=== PATIENT | male | born 1980 | race Caucasian/White ===

== ENCOUNTER → 2020-05-08 08:23 | Outpatient (REF) | payer OTHER, SELFPAY ==
--- NOTE | 2020-05-08 08:25 | CA_ITS ---
Transthoracic Echocardiogram Patient (Last, First, Middle): Kendell Shepherd, Gender: Male Date of : 1980 Age: 39 Procedure Date: 05/08/2020 Procedure Type: Transthoracic Echocardiogram Location: OP Height: 187.96 cm Weight: 95.26 kg BSA: 2.22 m2 Heart Rate: bpm BP: 142 / 88 mmHg Math And Science Instructor: Referring MD: Elfego Morales MD Symptoms[place] [facility] [place] Conclusions: - Normal left ventricular size and systolic function. - Normal right ventricular cavity size and systolic function. - Tricuspid regurgitation envelope is inadequate for calculation of right ventricular systolic pressure. Normal right atrial pressure. - All visible segments of the aorta are normal in size. - The inferior vena cava is normal in size and collapses greater than 50% with inspiration. Findings Left Ventricle Normal left ventricular size and systolic function. There is mildly increased left ventricular wall thickness. The visually estimated ejection fraction is between 55-60%. There is no evidence of regional wall motion abnormalities. Diastolic function is normal for age. Right Ventricle Normal right ventricular cavity size and systolic function. Atria Both atria are normal in size. There is no evidence of interatrial shunt by color Doppler. Aortic Valve Normal aortic valve structure and function. There is no aortic valve stenosis. There is no aortic valve regurgitation. Mitral Valve Normal mitral valve structure and function. There is no mitral valve regurgitation. There is no mitral valve stenosis. Pulmonic Valve Normal pulmonic valve structure and function. There is no pulmonic valve regurgitation. Tricuspid Valve Normal tricuspid valve structure and function. There is trace tricuspid valve regurgitation. Tricuspid regurgitation envelope is inadequate for calculation of right ventricular systolic pressure. Normal right atrial pressure. Great Vessels All visible segments of the aorta are normal in size. The visualized portions of the pulmonary artery and branches are normal. Venous The inferior vena cava is normal in size and collapses greater than 50% with inspiration. Pericardium/Pleural There is no evidence of pericardial effusion. Prior Study Comparison No significant change compared to prior study dated: 01/19/2020. Measurements 2D Linear Measurements RVIDd: 3.33 RVIDd Index: 1.50 IVSd: 1.13 0.6-0.9/0.6-1.0 cm LVIDd: 5.39 3.9-5.3/4.2-5.9 cm LVIDd Index: 2.43 2.4-3.2/2.2-3.1 cm/m2 LVIDs: 3.41 2.0-3.6 cm LVPWd: 1.00 0.7-1.1 cm Ao Root: 3.50 2.1-3.5 cm LA Diam: 3.30 2.7-3.8/3.0-4.0 cm LAIDs Index: 1.49 1.5-2.3 cm/m2 LV Mass: 279.41 67-162/88-224 g LV Mass Index: 125.86 43-95/49-115 g/m2 LVOT Diam: 2.30 3.0+(-)1.3 cm 2D Systolic Function EF 4C: 56.50 >55% EF 2C: 53.50 >55% EF BiP: 53.90 >55% Mitral Valve MV Pk E: 0.45 MV PK A: 0.51 MV Decel Time: 208.00 E/A: 0.90 E'Lateral: 10.60 E'Medial: 5.33 E/E' Med: 8.40 E/E' Lat: 4.20 PHT: 61.00 MVA PHT: 3.61 Decel [place]: 2.15 Aortic Valve AoV Pk [place]ison: 1.16 AoV Mn Addison: 0.86 AoV VTI: 0.21 AoV Pk Grad: 5.00 Aov Mn Grad: 3.00 VIKKI Cont.VTI: 4.07 LVOT LVOT Pk Addison: 1.13 LVOT Mn Addison: 0.75 LVOT VTI: 0.21 LVOT Pk Grad: 5.00 LVOT Mn Grad: 3.00 LVOT Diam: 2.30 LVOT Area: 4.15 Diastolic Function MV Pk E: 0.45 MV Pk A: 0.51 E/A: 0.90 E'Medial: 5.33 E/E' Med: 8.40 E' Laterial: 10.60 E/E' Lat: 4.20 Tricuspid Valve RA Press: 8.00 Great Vessels Aorta Ao Root-2D: 3.50 2.0-3.7 cm Ao Asc: 3.30 2.1-3.4 cm Ao Arch: 3.00 Updated in Other Vendor System with Status of Final Obie Cote MD electronically signed on 05/09/2020 1:12:20 PM with status of Final
== END ==
LOC: HO.CARD 08:23
PROVIDERS: PCP Internal Medicine; Visit Provider Hospitalist
DX: I27.82 Chronic pulmonary embolism (principal)
CPT/HCPCS: 93306

== ENCOUNTER 2020-05-18 09:44 | Outpatient (REF) | payer OTHER, SELFPAY ==
[2020-05-18 11:56] LABS: MANUAL DIFF FLAG NO
[2020-05-18 12:06] LABS: Basophils Absolute Auto 0.1 X10*3/uL (0.0-0.2); Basophils Percent Auto 0.9 % (0-2); Eosinophils Absolute Auto 0.3 X10*3/uL (0.0-0.4); Hematocrit 47.4 % (42-52); Hemoglobin 16.4 g/dl (14.0-18.0); Imm Gran Abs Auto 0.04 X10*3/uL (0.00-0.03); Imm Gran Pct Auto 0.6 % (0.0-0.4); Lymphocytes Absolute Auto 2.5 X10*3/uL (1.2-4.9); Lymphocytes Percent Auto 35.6 % (20-40); Mean Corpuscular HGB Conc 34.6 g/dl (31.0-36.0); Mean Corpuscular Hemoglobin 30.4 pg (27.0-33.0); Mean Corpuscular Volume 87.9 fL (80-98); Mean Platelet Volume 10.3 fL (9.4-12.4); Monocytes Absolute Auto 0.8 X10*3/uL (0.1-1.2); Neutrophils Absolute Auto 3.3 X10*3/uL (2.0-8.3); Neutrophils Percent Auto 47.9 % (45-73); Platelet Count 272 X10*3/uL (160-400); Red Blood Count 5.39 X10*6/uL (4.60-5.80); Red Cell Distribution Width 11.7 % (11.0-16.0); White Blood Count 6.9 X10*3/uL (4.8-10.8)
[2020-05-18 12:11] LABS: D Dimer < 200 NG/ML
[2020-05-18 12:28] LABS: Troponin-I High Sensitivity < 3.5 ng/L (<3.5-35.0)
[2020-05-18 13:06] LABS: Erythrocyte Sedimentation Rate 2 MM/HR (0-15)
== END 2020-05-18 09:45 | disposition home or self-care (01) ==
LOC: HO.LAB 09:44
PROVIDERS: Visit Provider Hospitalist
DX: I26.09 Other pulmonary embolism with acute cor pulmonale (principal); R06.00 Dyspnea, unspecified; R91.8 Other nonspecific abnormal finding of lung field; I74.9 Embolism and thrombosis of unspecified artery
CPT/HCPCS: 36415; 84484; 85025; 85379; 85652; 99212

== ENCOUNTER 2020-05-30 08:20 | Outpatient (REF) | payer OTHER, SELFPAY ==
--- NOTE | 2020-05-30 08:23 | CT_ITS ---
EXAMINATION: CT ANGIOGRAM OF THE CHEST WITH AND WITHOUT CONTRAST (CT PULMONARY ANGIOGRAM FOR PE) CLINICAL INFORMATION: Follow-up from 4 months ago. History of PE COMPARISON: 01/18/2020 TECHNIQUE: Prior to contrast administration, noncontrast localization images were obtained. Subsequently, multidetector volumetric imaging was performed from the thoracic inlet to below the diaphragms following the administration of 65 mL Omnipaque 350 intravenous contrast. No contrast reaction reported Sagittal, coronal, and MIP oblique sagittal reformatted images were obtained on the CT workstation, uploaded to PACS, and reviewed. This CT examination was performed using dose optimization techniques as appropriate, variously including the following: *Automated exposure control *Adjustment of mA and/or kV according to patient size (this includes techniques or standardized protocols for targeted exams where dose is matched to indication/reason for exam; i.e. extremities or head) *Use of iterative reconstruction technique Total exam dose-length product 153 mGy-cm FINDINGS: QUALITY OF STUDY/CONTRAST BOLUS: Satisfactory. 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 This abnormality was present on the prior study, with a nearly identical configuration, somewhat smaller in size. The majority of the previously seen left lower lobe pulmonary artery filling defects have resolved but there is mild residua, for example in the left lower lobe image 258/605 THORACIC AORTA: No aneurysm or dissection. LUNG: There is mild residual atelectasis vs. scar in the lingula. This was present and is smaller. In retrospect it may have represented a small pulmonary infarct. No new focal consolidation or mass. PLEURA: No pleural effusion or pneumothorax. MEDIASTINUM: Normal heart size. No pericardial effusion. No hilar or mediastinal lymphadenopathy. No evidence of septal bowing or right heart strain. CHEST WALL/AXILLA: No axillary or internal mammary lymphadenopathy. OSSEOUS STRUCTURES: No acute or suspicious osseous abnormality. UPPER ABDOMEN: Liver is diffusely enlarged and hypoattenuating consistent with diffuse hepatic steatosis. There is focal fatty sparing adjacent to gallbladder fossa. No reflux of contrast into the hepatic veins to suggest elevated right heart pressures. 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 The largest abnormality is seen at the bifurcation of the right pulmonary artery extending into the right interlobar pulmonary artery, slightly decreased in size from the prior study. The report will be called to the ordering clinician by a [facility] Physician Tool Clerk.
[2020-05-30] MEDS: iohexoL 350 MG/ML 100 ML INFUS..BTL IV (09:16)
== END 2020-05-30 08:21 | disposition home or self-care (01) ==
LOC: HO.CT 08:20
PROVIDERS: Visit Provider Hospitalist
DX: R06.00 Dyspnea, unspecified (principal); I26.09 Other pulmonary embolism with acute cor pulmonale; R91.8 Other nonspecific abnormal finding of lung field
CPT/HCPCS: 71275; Q9967

== ENCOUNTER 2020-07-07 09:01 | Outpatient (REF) | payer OTHER, SELFPAY ==
--- NOTE | 2020-07-07 16:20 | PFT_ITS ---
FLOWS: FEV1 of 108% of predicted at 5.13 L. FVC 105% of predicted at 6.35 L. FEV1 to FVC ratio of 0.81. No bronchodilator response. LUNG VOLUMES: Total lung capacity 113% of predicted at 8.75 L. Residual volume 111% of predicted at 2.29 L. Slow vital capacity 113% of predicted at 6.46 L. Expiratory reserve volume 54% of predicted at 1.03 L. Diffusion capacity is mildly decreased. IMPRESSION: No obstructive or restrictive ventilatory defect. No bronchodilator response. Decreased expiratory reserve volume suggests extrathoracic restriction likely secondary to abdominal obesity. Decreased diffusion capacity suggests emphysema. MD TIGIST Olivares/MODL / [id number]
== END 2020-07-07 09:02 | disposition home or self-care (01) ==
LOC: HO.RESP 09:01
PROVIDERS: Visit Provider Hospitalist
DX: I74.9 Embolism and thrombosis of unspecified artery (principal); I26.99 Other pulmonary embolism without acute cor pulmonale; R06.00 Dyspnea, unspecified
CPT/HCPCS: 94060; 94727; 94729; 99212

== ENCOUNTER 2020-08-08 09:01 | Outpatient (REF) | payer OTHER, SELFPAY ==
--- NOTE | 2020-08-08 09:10 | XR_ITS ---
EXAMINATION: XR CHEST CLINICAL INFORMATION: History of pulmonary embolism. COMPARISON: None TECHNIQUE: 2 views of the chest were obtained. FINDINGS: No significant abnormality is noted involving the heart, lungs, mediastinum, bony thorax or soft tissues. XR/XR chest 2V IMPRESSION: Unremarkable chest examination.
== END 2020-08-08 09:02 | disposition home or self-care (01) ==
LOC: HO.XRAY 09:01
PROVIDERS: Visit Provider Hospitalist
DX: I74.9 Embolism and thrombosis of unspecified artery (principal); R91.8 Other nonspecific abnormal finding of lung field; R06.00 Dyspnea, unspecified
CPT/HCPCS: 71046

== ENCOUNTER → 2020-08-09 08:34 | Outpatient (REF) | payer OTHER, SELFPAY ==
--- NOTE | 2020-08-09 08:34 | NM_ITS ---
EXAMINATION: PULMONARY PERFUSION STUDY CLINICAL INFORMATION: Pulmonary embolism. COMPARISON: No previous lung scan is available for comparison. Radiographs of the chest dated 08/08/2019 are available for comparison. CTA of the chest dated 05/30/2020 and prior CTA of the chest dated 01/18/2020 are available for comparison. TECHNIQUE: Following the intravenous administration of 4.0 mCi Tc-99m MAA an 8-view perfusion study was performed using a dual detector gamma scintillation camera. No ventilation images were obtained. FINDINGS: Perfusion images: Multiple segmental and subsegmental perfusion defects are present bilaterally, most prominently involving the superior segment of the right lower lobe, the lateral segment of the right middle lobe and the superior lingular segment in the anterior segment of the left lower lobe. Additional scattered subsegmental perfusion defects are present bilaterally. The radiographs of the chest dated 08/08/2020 show clear lung simons with no abnormalities matching the prominent perfusion abnormalities. CTAs of the chest dated 05/30/2020 and 01/18/2020 both showed multiple pulmonary emboli, the most recent 05/30/2020 study suggesting chronic residual from prior emboli. NM/NM pul perfusion IMPRESSION: High probability of pulmonary embolism of undetermined age. In this patient with prior CTA studies demonstrating pulmonary emboli, the abnormalities on this scan may be due to acute pulmonary embolism or incomplete resolution of prior pulmonary embolism. In the absence of a prior lung scan it is not possible to determine with certainty whether any of these defects on the current study are new. This Critical Result was discussed by Dr. Marinelli with Dr. Morales at 9:20 AM on 08/09/2020 and it was ascertained that the content and urgency of the report was understood at the time of direct communication.
== END ==
LOC: HO.NUCMED 08:34
PROVIDERS: Visit Provider Hospitalist
DX: I74.9 Embolism and thrombosis of unspecified artery (principal)
CPT/HCPCS: 78580; A9540

== ENCOUNTER → 2020-09-05 15:11 | Outpatient (BNVA) | payer OTHER, SELFPAY | PROVIDERS: PCP Internal Medicine; Visit Provider Hospitalist | DX: R91.8 Other nonspecific abnormal finding of lung field (principal); I74.9 Embolism and thrombosis of unspecified artery; I26.09 Other pulmonary embolism with acute cor pulmonale; R06.00 Dyspnea, unspecified | CPT/HCPCS: 99212 ==

== ENCOUNTER → 2020-10-10 14:24 | Outpatient (BNVA) | payer OTHER, SELFPAY | PROVIDERS: PCP Internal Medicine; Visit Provider Hospitalist | DX: R91.8 Other nonspecific abnormal finding of lung field (principal); R06.00 Dyspnea, unspecified; I74.9 Embolism and thrombosis of unspecified artery; I26.09 Other pulmonary embolism with acute cor pulmonale; Z79.899 Other long term (current) drug therapy | CPT/HCPCS: 99212 ==

== ENCOUNTER 2020-10-30 13:35 | Emergency (ER) | payer OTHER, SELFPAY | END 2020-10-30 16:33 | disposition left against medical advice (07) | PROVIDERS: Emergency Provider Emergency Medicine; PCP Internal Medicine | DX: R11.0 Nausea (principal); F41.0 Panic disorder [episodic paroxysmal anxiety] ==

== ENCOUNTER → 2020-12-11 14:21 | Outpatient (BNVA) | payer OTHER, SELFPAY | PROVIDERS: PCP Internal Medicine; Visit Provider Hospitalist | DX: R91.8 Other nonspecific abnormal finding of lung field (principal); I74.9 Embolism and thrombosis of unspecified artery; I26.09 Other pulmonary embolism with acute cor pulmonale; R06.00 Dyspnea, unspecified; I27.20 Pulmonary hypertension, unspecified | CPT/HCPCS: 99212 ==

== ENCOUNTER → 2021-04-16 12:59 | Outpatient (BNVA) | payer OTHER, SELFPAY | PROVIDERS: PCP Internal Medicine; Visit Provider Hospitalist | DX: R91.8 Other nonspecific abnormal finding of lung field (principal); I71.9 Aortic aneurysm of unspecified site, without rupture; I26.09 Other pulmonary embolism with acute cor pulmonale; I27.20 Pulmonary hypertension, unspecified; R06.00 Dyspnea, unspecified | CPT/HCPCS: 99212 ==

== ENCOUNTER 2021-06-26 10:17 | Outpatient (REF) | payer OTHER, SELFPAY ==
[2021-06-26 10:40] LABS: MANUAL DIFF FLAG NO
[2021-06-26 10:51] LABS: Basophils Percent Auto 0.5 % (0-2); Eosinophils Absolute Auto 0.3 X10*3/uL (0.0-0.4); Eosinophils Percent Auto 3.6 % (0-4); Hematocrit 43.7 % (42.0-52.0); Hemoglobin 14.9 g/dl (14.0-18.0); Imm Gran Abs Auto 0.15 X10*3/uL (0.00-0.03); Imm Gran Pct Auto 1.8 % (0.0-0.4); Lymphocytes Absolute Auto 2.2 X10*3/uL (1.2-4.9); Lymphocytes Percent Auto 26.5 % (20-40); Mean Corpuscular HGB Conc 34.1 g/dl (31.0-36.0); Mean Corpuscular Hemoglobin 30.3 pg (27.0-33.0); Mean Platelet Volume 9.6 fL (9.4-12.4); Monocytes Absolute Auto 0.8 X10*3/uL (0.1-1.2); Neutrophils Absolute Auto 4.9 x10*3/uL (2.0-8.3); Neutrophils Percent Auto 58.6 % (45-73); Platelet Count 334 X10*3/uL (160-400); Red Blood Count 4.91 X10*6/uL (4.60-5.80); Red Cell Distribution Width 11.6 % (11.0-16.0); White Blood Count 8.3 X10*3/uL (4.8-10.8)
[2021-06-26 11:03] LABS: Prothrombin Time 75.5 SEC (9.9-13.0)
[2021-06-26 11:31] LABS: Anion Gap 14 (12-20); Blood Urea Nitrogen 29 mg/dL (9-16); Calcium 9.6 mg/dL (8.4-10.2); Carbon Dioxide 24 mmol/L (22-29); Chloride 106 mmol/L (96-108); Estimated Glomerular Filt Rate > 60; Glucose Random 97 mg/dL (60-115); Potassium 4.7 mmol/L (3.3-5.1); Sodium 139 mmol/L (135-145)
[2021-06-26 11:53] LABS: INTERNATIONAL NORM RATIO 6.4 (0.9-1.1)
== END 2021-06-26 10:18 | disposition home or self-care (01) ==
LOC: HO.LAB 10:17
PROVIDERS: PCP Internal Medicine; Visit Provider Hospitalist
DX: I74.9 Embolism and thrombosis of unspecified artery (principal)
CPT/HCPCS: 36415; 80048; 85025; 85610

== ENCOUNTER 2021-06-27 09:50 | Outpatient (REF) | payer OTHER, SELFPAY ==
[2021-06-27 10:41] LABS: INTERNATIONAL NORM RATIO 2.7 (0.9-1.1); Prothrombin Time 31.4 SEC (9.9-13.0)
== END 2021-06-27 09:51 | disposition home or self-care (01) ==
LOC: HO.LAB 09:50
PROVIDERS: Visit Provider Hospitalist
DX: I74.9 Embolism and thrombosis of unspecified artery (principal); Z79.01 Long term (current) use of anticoagulants
CPT/HCPCS: 36415; 85610

== ENCOUNTER → 2021-06-28 12:59 | Outpatient (BNVA) | payer OTHER, SELFPAY | PROVIDERS: PCP Hospitalist; Visit Provider Internal Medicine | DX: I74.9 Embolism and thrombosis of unspecified artery (principal); Z51.81 Encounter for therapeutic drug level monitoring; Z79.01 Long term (current) use of anticoagulants | CPT/HCPCS: 85610; 99202 ==

== ENCOUNTER → 2021-06-29 09:47 | Outpatient (BNVA) | payer OTHER, SELFPAY | PROVIDERS: PCP Hospitalist; Visit Provider Internal Medicine | DX: I74.9 Embolism and thrombosis of unspecified artery (principal); Z51.81 Encounter for therapeutic drug level monitoring; Z79.01 Long term (current) use of anticoagulants | CPT/HCPCS: 85610; 99211 ==

== ENCOUNTER → 2021-07-02 09:20 | Outpatient (BNVA) | payer OTHER, SELFPAY | PROVIDERS: PCP Hospitalist; Visit Provider Internal Medicine | DX: I74.9 Embolism and thrombosis of unspecified artery (principal) | CPT/HCPCS: 85610; 99211 ==

== ENCOUNTER → 2021-07-04 09:38 | Outpatient (REF) | payer OTHER, SELFPAY ==
--- NOTE | 2021-07-04 10:18 | ECG_ITS ---
Test Reason : pulmonary embolism Blood Pressure : / mmHG Vent. Rate : 102 BPM Atrial Rate : 102 BPM P-R Int : 138 ms QRS Dur : 090 ms QT Int : 346 ms P-R-T Axes : 047 062 009 degrees QTc Int : 450 ms Sinus tachycardia Otherwise normal ECG When compared with ECG of 18-JAN-2020 20:43, Nonspecific T wave abnormality, worse in Inferior leads Referred By: Elfego Morales Electronically Signed By:ISABELL APPIAH MD
== END ==
LOC: HO.CARD 09:38
PROVIDERS: Absent Provider Hospitalist; PCP Hospitalist; Visit Provider Internal Medicine
DX: I26.09 Other pulmonary embolism with acute cor pulmonale (principal); R00.0 Tachycardia, unspecified; Z79.01 Long term (current) use of anticoagulants
CPT/HCPCS: 85610; 93005; 99211

== ENCOUNTER → 2021-07-06 09:26 | Outpatient (BNVA) | payer OTHER, SELFPAY | PROVIDERS: PCP Hospitalist; Visit Provider Internal Medicine | DX: I74.9 Embolism and thrombosis of unspecified artery (principal); Z51.81 Encounter for therapeutic drug level monitoring; Z79.01 Long term (current) use of anticoagulants | CPT/HCPCS: 85610; 99211 ==

== ENCOUNTER → 2021-07-09 09:39 | Outpatient (BNVA) | payer OTHER, SELFPAY | PROVIDERS: PCP Hospitalist; Visit Provider Internal Medicine | DX: I74.9 Embolism and thrombosis of unspecified artery (principal); Z51.81 Encounter for therapeutic drug level monitoring; Z79.01 Long term (current) use of anticoagulants | CPT/HCPCS: 85610; 99211 ==

== ENCOUNTER → 2021-07-12 09:35 | Outpatient (BNVA) | payer OTHER, SELFPAY | PROVIDERS: PCP Hospitalist; Visit Provider Internal Medicine | DX: I74.9 Embolism and thrombosis of unspecified artery (principal); Z51.81 Encounter for therapeutic drug level monitoring; Z79.01 Long term (current) use of anticoagulants | CPT/HCPCS: 85610; 99211 ==

== ENCOUNTER → 2021-07-16 09:35 | Outpatient (BNVA) | payer OTHER, SELFPAY | PROVIDERS: PCP Hospitalist; Visit Provider Internal Medicine | DX: I74.9 Embolism and thrombosis of unspecified artery (principal); Z51.81 Encounter for therapeutic drug level monitoring; Z79.01 Long term (current) use of anticoagulants | CPT/HCPCS: 85610; 99211 ==

== ENCOUNTER → 2021-07-19 13:43 | Outpatient (BNVA) | payer OTHER, SELFPAY | PROVIDERS: PCP Hospitalist; Visit Provider Internal Medicine | DX: I74.9 Embolism and thrombosis of unspecified artery (principal); Z51.81 Encounter for therapeutic drug level monitoring; Z79.01 Long term (current) use of anticoagulants | CPT/HCPCS: 85610; 99211 ==

== ENCOUNTER → 2021-07-23 09:31 | Outpatient (BNVA) | payer OTHER, SELFPAY | PROVIDERS: PCP Hospitalist; Visit Provider Internal Medicine | DX: I74.9 Embolism and thrombosis of unspecified artery (principal); Z51.81 Encounter for therapeutic drug level monitoring; Z79.01 Long term (current) use of anticoagulants | CPT/HCPCS: 85610; 99211 ==

== ENCOUNTER → 2021-07-27 09:31 | Outpatient (BNVA) | payer OTHER, SELFPAY | PROVIDERS: PCP Hospitalist; Visit Provider Internal Medicine | DX: I74.9 Embolism and thrombosis of unspecified artery (principal); Z51.81 Encounter for therapeutic drug level monitoring; Z79.01 Long term (current) use of anticoagulants | CPT/HCPCS: 85610; 99211 ==

== ENCOUNTER → 2021-08-01 08:18 | Outpatient (BNVA) | payer OTHER, SELFPAY | PROVIDERS: PCP Hospitalist; Visit Provider Internal Medicine | DX: I74.9 Embolism and thrombosis of unspecified artery (principal); Z51.81 Encounter for therapeutic drug level monitoring; Z79.01 Long term (current) use of anticoagulants | CPT/HCPCS: 85610; 99211 ==

== ENCOUNTER → 2021-08-08 08:19 | Outpatient (BNVA) | payer OTHER, SELFPAY | PROVIDERS: PCP Hospitalist; Visit Provider Internal Medicine | DX: I74.9 Embolism and thrombosis of unspecified artery (principal); Z51.81 Encounter for therapeutic drug level monitoring; Z79.01 Long term (current) use of anticoagulants | CPT/HCPCS: 85610; 99211 ==

== ENCOUNTER → 2021-08-14 12:55 | Outpatient (BNVA) | payer OTHER, SELFPAY | PROVIDERS: Visit Provider Hospitalist | DX: R91.8 Other nonspecific abnormal finding of lung field (principal); I74.9 Embolism and thrombosis of unspecified artery; I26.09 Other pulmonary embolism with acute cor pulmonale; I27.20 Pulmonary hypertension, unspecified; R06.00 Dyspnea, unspecified; R07.9 Chest pain, unspecified | CPT/HCPCS: 94618; 99212 ==

== ENCOUNTER → 2021-08-15 08:22 | Outpatient (BNVA) | payer OTHER, SELFPAY | PROVIDERS: PCP Hospitalist; Visit Provider Internal Medicine | DX: I74.9 Embolism and thrombosis of unspecified artery (principal); Z51.81 Encounter for therapeutic drug level monitoring; Z79.01 Long term (current) use of anticoagulants | CPT/HCPCS: 85610; 99211 ==

== ENCOUNTER → 2021-08-22 08:08 | Outpatient (BNVA) | payer OTHER, SELFPAY | PROVIDERS: PCP Hospitalist; Visit Provider Internal Medicine | DX: I74.9 Embolism and thrombosis of unspecified artery (principal); Z51.81 Encounter for therapeutic drug level monitoring; Z79.01 Long term (current) use of anticoagulants | CPT/HCPCS: 85610; 99211 ==

== ENCOUNTER → 2021-08-29 08:01 | Outpatient (BNVA) | payer OTHER, SELFPAY | PROVIDERS: PCP Hospitalist; Visit Provider Internal Medicine | DX: I74.9 Embolism and thrombosis of unspecified artery (principal); Z51.81 Encounter for therapeutic drug level monitoring; Z79.01 Long term (current) use of anticoagulants | CPT/HCPCS: 85610; 99211 ==

== ENCOUNTER → 2021-09-05 08:03 | Outpatient (BNVA) | payer OTHER, SELFPAY | PROVIDERS: PCP Hospitalist; Visit Provider Internal Medicine | DX: I74.9 Embolism and thrombosis of unspecified artery (principal); Z51.81 Encounter for therapeutic drug level monitoring; Z79.01 Long term (current) use of anticoagulants | CPT/HCPCS: 85610; 99211 ==

== ENCOUNTER → 2021-09-17 16:12 | Outpatient (BNVA) | payer OTHER, SELFPAY | PROVIDERS: PCP Hospitalist; Visit Provider Internal Medicine | DX: I74.9 Embolism and thrombosis of unspecified artery (principal); Z51.81 Encounter for therapeutic drug level monitoring; Z79.01 Long term (current) use of anticoagulants | CPT/HCPCS: 85610; 99211 ==

== ENCOUNTER → 2021-09-26 08:08 | Outpatient (BNVA) | payer OTHER, SELFPAY | PROVIDERS: PCP Hospitalist; Visit Provider Internal Medicine | DX: I74.9 Embolism and thrombosis of unspecified artery (principal); Z51.81 Encounter for therapeutic drug level monitoring; Z79.01 Long term (current) use of anticoagulants | CPT/HCPCS: 85610; 99211 ==

== ENCOUNTER → 2021-10-03 08:07 | Outpatient (BNVA) | payer OTHER, SELFPAY | PROVIDERS: PCP Hospitalist; Visit Provider Internal Medicine | DX: I74.9 Embolism and thrombosis of unspecified artery (principal); Z79.01 Long term (current) use of anticoagulants; Z51.81 Encounter for therapeutic drug level monitoring | CPT/HCPCS: 85610; 99211 ==

== ENCOUNTER → 2021-10-10 08:14 | Outpatient (BNVA) | payer OTHER, SELFPAY | PROVIDERS: PCP Hospitalist; Visit Provider Internal Medicine | DX: I74.9 Embolism and thrombosis of unspecified artery (principal); Z51.81 Encounter for therapeutic drug level monitoring; Z79.01 Long term (current) use of anticoagulants | CPT/HCPCS: 85610; 99211 ==

== ENCOUNTER → 2021-10-17 08:06 | Outpatient (BNVA) | payer OTHER, SELFPAY | PROVIDERS: PCP Hospitalist; Visit Provider Internal Medicine | DX: I74.9 Embolism and thrombosis of unspecified artery (principal); Z51.81 Encounter for therapeutic drug level monitoring; Z79.01 Long term (current) use of anticoagulants | CPT/HCPCS: 85610; 99211 ==

== ENCOUNTER → 2021-10-31 08:24 | Outpatient (BNVA) | payer OTHER, SELFPAY | PROVIDERS: PCP Hospitalist; Visit Provider Internal Medicine | DX: I74.9 Embolism and thrombosis of unspecified artery (principal); Z79.01 Long term (current) use of anticoagulants; Z51.81 Encounter for therapeutic drug level monitoring | CPT/HCPCS: 85610; 99211 ==

== ENCOUNTER → 2021-11-14 08:03 | Outpatient (BNVA) | payer OTHER, SELFPAY | PROVIDERS: PCP Hospitalist; Visit Provider Internal Medicine | DX: I74.9 Embolism and thrombosis of unspecified artery (principal); Z79.01 Long term (current) use of anticoagulants; Z51.81 Encounter for therapeutic drug level monitoring | CPT/HCPCS: 85610; 99211 ==

== ENCOUNTER → 2021-11-21 08:04 | Outpatient (BNVA) | payer OTHER, SELFPAY | PROVIDERS: PCP Hospitalist; Visit Provider Internal Medicine | DX: I74.9 Embolism and thrombosis of unspecified artery (principal); Z79.01 Long term (current) use of anticoagulants; Z51.81 Encounter for therapeutic drug level monitoring | CPT/HCPCS: 85610; 99211 ==

== ENCOUNTER → 2021-11-28 07:59 | Outpatient (BNVA) | payer OTHER, SELFPAY | PROVIDERS: PCP Hospitalist; Visit Provider Internal Medicine | DX: I74.9 Embolism and thrombosis of unspecified artery (principal); Z79.01 Long term (current) use of anticoagulants; Z51.81 Encounter for therapeutic drug level monitoring | CPT/HCPCS: 85610; 99211 ==

== ENCOUNTER → 2021-12-07 08:54 | Outpatient (BNVA) | payer OTHER, SELFPAY | PROVIDERS: PCP Hospitalist; Visit Provider Internal Medicine | DX: I74.9 Embolism and thrombosis of unspecified artery (principal); Z79.01 Long term (current) use of anticoagulants; Z51.81 Encounter for therapeutic drug level monitoring | CPT/HCPCS: 85610; 99211 ==

== ENCOUNTER → 2021-12-18 08:04 | Outpatient (BNVA) | payer OTHER, SELFPAY | PROVIDERS: PCP Hospitalist; Visit Provider Internal Medicine | DX: I74.9 Embolism and thrombosis of unspecified artery (principal); Z79.01 Long term (current) use of anticoagulants; Z51.81 Encounter for therapeutic drug level monitoring | CPT/HCPCS: 85610; 99211 ==

== ENCOUNTER → 2022-01-01 07:59 | Outpatient (BNVA) | payer OTHER, SELFPAY | PROVIDERS: PCP Hospitalist; Visit Provider Internal Medicine | DX: I74.9 Embolism and thrombosis of unspecified artery (principal); Z79.01 Long term (current) use of anticoagulants; Z51.81 Encounter for therapeutic drug level monitoring | CPT/HCPCS: 85610; 99211 ==

== ENCOUNTER → 2022-01-17 08:21 | Outpatient (BNVA) | payer OTHER, SELFPAY | PROVIDERS: PCP Internal Medicine; Visit Provider Internal Medicine | DX: R91.8 Other nonspecific abnormal finding of lung field (principal); I26.09 Other pulmonary embolism with acute cor pulmonale; R06.00 Dyspnea, unspecified; I27.20 Pulmonary hypertension, unspecified; R07.9 Chest pain, unspecified; Z51.81 Encounter for therapeutic drug level monitoring; Z79.01 Long term (current) use of anticoagulants | CPT/HCPCS: 85610; 99211; 99212 ==

== ENCOUNTER → 2022-01-31 08:06 | Outpatient (BNVA) | payer OTHER, SELFPAY | PROVIDERS: PCP Internal Medicine; Visit Provider Internal Medicine | DX: I74.9 Embolism and thrombosis of unspecified artery (principal); Z51.81 Encounter for therapeutic drug level monitoring; Z79.01 Long term (current) use of anticoagulants | CPT/HCPCS: 85610; 99211 ==

== ENCOUNTER 2022-02-19 07:45 | Outpatient (REF) | payer OTHER, SELFPAY ==
--- NOTE | ~2022-02-19 | XR_ITS ---
EXAMINATION: XR CHEST CLINICAL INFORMATION: History pulmonary embolism. COMPARISON: Nuclear medicine perfusion scan 08/09/2020, chest radiographs 08/08/2020. TECHNIQUE: 2 views of the chest were obtained. FINDINGS: There is been prior median sternotomy. The heart is normal in size. The vascularity is normal. There is no pneumothorax, airspace consolidation, groundglass opacity, or effusion. The hilar and mediastinal contours and visualized bony structures are unremarkable. XR/XR chest 2V IMPRESSION: Unremarkable examination.
== END 2022-02-19 07:46 | disposition home or self-care (01) ==
LOC: HO.XRAY 07:45
PROVIDERS: PCP Internal Medicine; Visit Provider Hospitalist
DX: I26.99 Other pulmonary embolism without acute cor pulmonale (principal); R91.8 Other nonspecific abnormal finding of lung field; Z51.81 Encounter for therapeutic drug level monitoring; Z79.01 Long term (current) use of anticoagulants
CPT/HCPCS: 71046; 85610; 99211

== ENCOUNTER → 2022-02-26 08:11 | Outpatient (BNVA) | payer OTHER, SELFPAY | PROVIDERS: PCP Internal Medicine; Visit Provider Internal Medicine | DX: I74.9 Embolism and thrombosis of unspecified artery (principal); Z51.81 Encounter for therapeutic drug level monitoring; Z79.01 Long term (current) use of anticoagulants | CPT/HCPCS: 85610; 99211 ==

== ENCOUNTER → 2022-03-04 08:02 | Outpatient (BNVA) | payer OTHER, SELFPAY | PROVIDERS: PCP Internal Medicine; Visit Provider Internal Medicine | DX: I74.9 Embolism and thrombosis of unspecified artery (principal); Z79.01 Long term (current) use of anticoagulants; Z51.81 Encounter for therapeutic drug level monitoring | CPT/HCPCS: 85610; 99211 ==

== ENCOUNTER → 2022-03-12 08:06 | Outpatient (BNVA) | payer OTHER, SELFPAY | PROVIDERS: PCP Internal Medicine; Visit Provider Internal Medicine | DX: I74.9 Embolism and thrombosis of unspecified artery (principal); Z79.01 Long term (current) use of anticoagulants; Z51.81 Encounter for therapeutic drug level monitoring | CPT/HCPCS: 85610; 99211 ==

== ENCOUNTER → 2022-04-02 08:10 | Outpatient (BNVA) | payer OTHER, SELFPAY | PROVIDERS: PCP Internal Medicine; Visit Provider Internal Medicine | DX: I26.99 Other pulmonary embolism without acute cor pulmonale (principal); I74.9 Embolism and thrombosis of unspecified artery; Z79.01 Long term (current) use of anticoagulants; Z51.81 Encounter for therapeutic drug level monitoring | CPT/HCPCS: 85610; 99211 ==

== ENCOUNTER → 2022-04-17 08:05 | Outpatient (BNVA) | payer OTHER, SELFPAY | PROVIDERS: PCP Internal Medicine; Visit Provider Internal Medicine | DX: I74.9 Embolism and thrombosis of unspecified artery (principal); I26.99 Other pulmonary embolism without acute cor pulmonale; Z79.01 Long term (current) use of anticoagulants; Z51.81 Encounter for therapeutic drug level monitoring | CPT/HCPCS: 85610; 99211 ==

== ENCOUNTER → 2022-05-02 08:00 | Outpatient (BNVA) | payer OTHER, SELFPAY | PROVIDERS: PCP Internal Medicine; Visit Provider Internal Medicine | DX: I26.99 Other pulmonary embolism without acute cor pulmonale (principal); I74.9 Embolism and thrombosis of unspecified artery; Z79.01 Long term (current) use of anticoagulants; Z51.81 Encounter for therapeutic drug level monitoring | CPT/HCPCS: 85610; 99211 ==

== ENCOUNTER → 2022-05-22 08:03 | Outpatient (BNVA) | payer OTHER, SELFPAY | PROVIDERS: PCP Internal Medicine; Visit Provider Internal Medicine | DX: I26.99 Other pulmonary embolism without acute cor pulmonale (principal); I74.9 Embolism and thrombosis of unspecified artery; Z79.01 Long term (current) use of anticoagulants; Z51.81 Encounter for therapeutic drug level monitoring | CPT/HCPCS: 85610; 99211 ==

== ENCOUNTER 2022-05-27 09:11 | Outpatient (REF) | payer OTHER, SELFPAY ==
--- NOTE | ~2022-05-27 | CT_ITS ---
EXAMINATION: CT CHEST WITHOUT CONTRAST CLINICAL INFORMATION: Pulmonary nodules. COMPARISON: Chest x-ray 02/19/2022. CTA chest 05/30/2020 TECHNIQUE: Multidetector volumetric CT imaging of the chest was done. Axial MIP volume rendering provided. Sagittal and coronal reformatted images were obtained. This CT examination was performed using dose optimization techniques as appropriate, variously including the following: *Automated exposure control *Adjustment of mA and/or kV according to patient size (this includes techniques or standardized protocols for targeted exams where dose is matched to indication/reason for exam; i.e. extremities or head) *Use of iterative reconstruction technique DLP: 234 mGy-cm FINDINGS: WEB ARCHITECT: Expanded lungs with mild elevation of right hemidiaphragm. There are median sternotomy sutures from previous intervention. LUNGS: The lungs are well-expanded with chronic scarring right upper lobe and lingular segments. There is a 1 mm subpleural calcified nodule left lower lobe laterally image 459/7, 1 mm calcified nodule in the lingula axial image 355/7, 2 mm calcified nodule right upper lobe anterior segment image 209/7. There are no noncalcified nodules, mass or consolidation. MEDIASTINUM: Thyroid lobes are symmetrical and normal. Central trachea and bronchi widely patent. Small shotty lymph nodes are seen in the mediastinum. There is no pericardial effusion. The heart size and great vessels are normal caliber. CORONARY ARTERY CALCIFICATION: None visualized on this study. PLEURA: There is no pleural effusion. No pleural mass or thickening. AXILLA: Small shotty lymph nodes are seen in bilateral axilla. UPPER ABDOMEN: Visualized liver is diffusely attenuated without focal lesion. Spleen, pancreas and bilateral adrenal glands unremarkable. No radiopaque gallstones visualized. OSSEOUS STRUCTURES: There are median sternotomy sutures from previous intervention. No lytic or sclerotic process seen. CT/CT chest wo IV con IMPRESSION: 1. Small calcified pulmonary nodules. No noncalcified nodules seen. 2. Chronic scarring right upper lobe and lingular segments. 3. No abnormal mediastinal or axillary lymph nodes seen. 4. Mild hepatic steatosis. No focal lesion seen. Fleischner guidelines were followed.
== END 2022-05-27 09:12 | disposition home or self-care (01) ==
LOC: HO.CT 09:11
PROVIDERS: PCP Internal Medicine; Visit Provider Hospitalist
DX: R91.8 Other nonspecific abnormal finding of lung field (principal)
CPT/HCPCS: 71250

== ENCOUNTER → 2022-06-28 08:42 | Outpatient (BNVA) | payer OTHER, SELFPAY | PROVIDERS: PCP Internal Medicine; Visit Provider Internal Medicine | DX: I26.09 Other pulmonary embolism with acute cor pulmonale (principal); I74.9 Embolism and thrombosis of unspecified artery; R91.8 Other nonspecific abnormal finding of lung field; Z79.01 Long term (current) use of anticoagulants; Z51.81 Encounter for therapeutic drug level monitoring | CPT/HCPCS: 85610; 99211; 99212 ==

== ENCOUNTER 2022-07-17 08:22 | Outpatient (REF) | payer OTHER, SELFPAY ==
[2022-07-17 11:11] LABS: MANUAL DIFF FLAG NO
[2022-07-17 11:27] LABS: Basophils Percent Auto 0.7 % (0-2); Eosinophils Absolute Auto 0.3 X10*3/uL (0.0-0.4); Eosinophils Percent Auto 4.3 % (0-4); Hematocrit 47.1 % (42.0-52.0); Hemoglobin 15.9 g/dl (14.0-18.0); Imm Gran Abs Auto 0.02 X10*3/uL (0.00-0.03); Imm Gran Pct Auto 0.3 % (0.0-0.4); Lymphocytes Absolute Auto 2.3 X10*3/uL (1.2-4.9); Lymphocytes Percent Auto 38.9 % (20-40); Mean Corpuscular HGB Conc 33.8 g/dl (31.0-36.0); Mean Corpuscular Hemoglobin 30.1 pg (27.0-33.0); Mean Platelet Volume 10.5 fL (9.4-12.4); Monocytes Absolute Auto 0.5 X10*3/uL (0.1-1.2); Neutrophils Absolute Auto 2.7 x10*3/uL (2.0-8.3); Neutrophils Percent Auto 46.8 % (45-73); Platelet Count 275 X10*3/uL (160-400); Red Blood Count 5.29 X10*6/uL (4.60-5.80); Red Cell Distribution Width 11.7 % (11.0-16.0); White Blood Count 5.8 X10*3/uL (4.8-10.8)
[2022-07-17 11:54] LABS: Alanine Aminotransferase 49 U/L (0-40); Albumin Level 4.5 g/dL (3.5-5.0); Alkaline Phosphatase 54 U/L (39-117); Anion Gap 13 (12-20); Aspartate Amino Transferase 29 U/L (5-37); Bilirubin Total 0.7 mg/dL (0.0-1.0); Blood Urea Nitrogen 20 mg/dL (9-16); Calcium 9.3 mg/dL (8.4-10.2); Carbon Dioxide 25 mmol/L (22-29); Chloride 105 mmol/L (96-108); Cholesterol 206 mg/dL; Estimated Glomerular Filt Rate > 60; Glucose Fasting 88 mg/dL (60-99); HDL Cholesterol 35 mg/dL; LDL Cholesterol Calculated 135 mg/dl; Potassium 4.1 mmol/L (3.3-5.1); Sodium 139 mmol/L (135-145); Triglycerides 180 mg/dL
== END 2022-07-17 08:23 | disposition home or self-care (01) ==
LOC: HO.HMGCLDS 08:22
PROVIDERS: PCP Internal Medicine; Visit Provider Internal Medicine
DX: Z00.00 Encounter for general adult medical examination without abnormal findings (principal)
CPT/HCPCS: 36415; 80053; 80061; 85025

== ENCOUNTER → 2022-07-18 08:10 | Outpatient (BNVA) | payer OTHER, SELFPAY | PROVIDERS: PCP Internal Medicine; Visit Provider Internal Medicine | DX: I26.99 Other pulmonary embolism without acute cor pulmonale (principal); Z79.01 Long term (current) use of anticoagulants; Z51.81 Encounter for therapeutic drug level monitoring | CPT/HCPCS: 85610; 99211 ==

== ENCOUNTER → 2022-08-14 07:56 | Outpatient (BNVA) | payer OTHER, SELFPAY | PROVIDERS: PCP Internal Medicine; Visit Provider Internal Medicine | DX: I26.99 Other pulmonary embolism without acute cor pulmonale (principal); Z79.01 Long term (current) use of anticoagulants; Z51.81 Encounter for therapeutic drug level monitoring | CPT/HCPCS: 85610; 99211 ==

== ENCOUNTER → 2022-09-05 08:05 | Outpatient (BNVA) | payer OTHER, SELFPAY | PROVIDERS: PCP Internal Medicine; Visit Provider Internal Medicine | DX: I26.99 Other pulmonary embolism without acute cor pulmonale (principal); Z51.81 Encounter for therapeutic drug level monitoring; Z79.01 Long term (current) use of anticoagulants | CPT/HCPCS: 85610; 99211 ==

== ENCOUNTER → 2022-09-18 14:07 | Outpatient (BNVA) | payer OTHER, SELFPAY | PROVIDERS: PCP Internal Medicine; Visit Provider Internal Medicine | DX: I26.99 Other pulmonary embolism without acute cor pulmonale (principal); Z79.01 Long term (current) use of anticoagulants; Z51.81 Encounter for therapeutic drug level monitoring | CPT/HCPCS: 85610; 99211 ==

== ENCOUNTER → 2022-10-21 08:16 | Outpatient (BNVA) | payer OTHER, SELFPAY | PROVIDERS: PCP Internal Medicine; Visit Provider Internal Medicine | DX: I26.99 Other pulmonary embolism without acute cor pulmonale (principal); Z79.01 Long term (current) use of anticoagulants; Z51.81 Encounter for therapeutic drug level monitoring | CPT/HCPCS: 85610; 99211 ==

== ENCOUNTER → 2022-11-18 09:13 | Outpatient (BNVA) | payer OTHER, SELFPAY | PROVIDERS: PCP Internal Medicine; Visit Provider Internal Medicine | DX: I26.99 Other pulmonary embolism without acute cor pulmonale (principal); Z79.01 Long term (current) use of anticoagulants; Z51.81 Encounter for therapeutic drug level monitoring | CPT/HCPCS: 85610; 99211 ==

== ENCOUNTER → 2022-11-25 13:29 | Outpatient (BNVA) | payer OTHER, SELFPAY | PROVIDERS: PCP Internal Medicine; Visit Provider Internal Medicine | DX: I26.99 Other pulmonary embolism without acute cor pulmonale (principal); Z79.01 Long term (current) use of anticoagulants; Z51.81 Encounter for therapeutic drug level monitoring | CPT/HCPCS: 85610; 99211 ==

== ENCOUNTER → 2022-12-02 10:01 | Outpatient (BNVA) | payer OTHER, SELFPAY | PROVIDERS: PCP Internal Medicine; Visit Provider Hospitalist | DX: R91.8 Other nonspecific abnormal finding of lung field (principal); I74.9 Embolism and thrombosis of unspecified artery; I26.09 Other pulmonary embolism with acute cor pulmonale; R06.00 Dyspnea, unspecified | CPT/HCPCS: 99212 ==

== ENCOUNTER → 2022-12-25 08:05 | Outpatient (BNVA) | payer OTHER, SELFPAY | PROVIDERS: PCP Internal Medicine; Visit Provider Internal Medicine | DX: I26.99 Other pulmonary embolism without acute cor pulmonale (principal); Z79.01 Long term (current) use of anticoagulants; Z51.81 Encounter for therapeutic drug level monitoring | CPT/HCPCS: 85610; 99211 ==

== ENCOUNTER → 2023-01-29 08:18 | Outpatient (BNVA) | payer OTHER, SELFPAY | PROVIDERS: PCP Internal Medicine; Visit Provider Internal Medicine ==

== ENCOUNTER 2023-01-31 11:12 | Outpatient (AMB) | payer OTHER, SELFPAY ==
[2023-01-31 11:18] LABS: Prothrombin Time Whole Bld POC 21.9 sec (11.1-13.5); ~PT, ~INR - Anti Coag Clinic 1.8 (0.9-1.1)
--- NOTE | 2023-01-31 11:24 | MHC.OFFVISCO ---
Intake Intake Visit Reasons: Anticoagulation Allergies No Known Allergies [No Known Allergies*] Allergy (Verified 01/31/23 11:13) Medication List - Last Reconciled 01/31/23 by Kristina Carr RN omega 4-yue-hrt-fish oil 60-90-500 mg (Fish Oil) 1 cap PO DAILY warfarin 5 mg See Protocol PO DAILY 90 days Nursing Note PT.STATES THAT HE HAS BEEN TAKING 5MGM DAILY FOR THE PAST MONTH. NO CP,SOB,DIET/MED CHANGES,FALLS OR SX OF BLEEDING. CONTINUE PRESERNT DOSE AND FOLLOW-UP IN 4 WEEKS. GOOD UNDERSTANDING OF DOSING INSTR. Anti-Coag Initial Assessment Social Hx Patient Tobacco Use Status: Never used Tobacco Smoking packs per day: 0 alcohol intake: current Alcohol intake frequency: holidays/special occasions only Cardiovascular Hx: HTN Lung Disease HX: Other Cancer HX: No Psych. Illness/Depression: No Coding Level of Care Code Est Patient Level 1 Diagnoses Current use of anticoagulant therapy Z79.01 Assessment & Plan Assessment & Plan (1) Current use of anticoagulant therapy: Code(s): Z79.01 - intermediate (current) use of anticoagulants Category: Medical
== END 2023-01-31 11:26 | disposition home or self-care (01) ==
PROVIDERS: PCP Internal Medicine; Visit Provider Internal Medicine
DX: Z79.01 Long term (current) use of anticoagulants (principal)

== ENCOUNTER → 2023-01-31 11:12 | Outpatient (BNVA) | payer OTHER, SELFPAY | PROVIDERS: PCP Internal Medicine; Visit Provider Internal Medicine | DX: I26.99 Other pulmonary embolism without acute cor pulmonale (principal); Z79.01 Long term (current) use of anticoagulants; Z51.81 Encounter for therapeutic drug level monitoring | CPT/HCPCS: 85610; 99211 ==

== ENCOUNTER 2023-02-27 08:00 | Outpatient (AMB) | payer OTHER, SELFPAY ==
--- NOTE | 2023-02-27 08:11 | MHC.OFFVISCO ---
Intake Intake Visit Reasons: Anticoagulation Allergies No Known Allergies [No Known Allergies*] Allergy (Verified 02/27/23 08:05) Medication List - Last Reconciled 02/27/23 by Lissette Becker RN omega 9-juj-kdz-fish oil 60-90-500 mg (Fish Oil) 1 cap PO DAILY warfarin 5 mg See Protocol PO DAILY 90 days Nursing Note INR: 1.8 in therapeutic range with 1 missed dose Medications and supplements reviewed No changes in health, diet, medications, or supplements, Denies any signs and symptoms of bleeding or bruising or clotting. Bleeding, bruising, clotting discussed Nutritional guidance given Dose: 5mg daily F/U INR: 1 month Patient verbalizes understanding of instructions given Anti-Coag Initial Assessment Social Hx Patient Tobacco Use Status: Never used Tobacco Smoking packs per day: 0 alcohol intake: current Alcohol intake frequency: holidays/special occasions only Cardiovascular Hx: HTN Lung Disease HX: Other Cancer HX: No Psych. 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
[2023-02-27 08:12] LABS: Prothrombin Time Whole Bld POC 22.1 sec (11.1-13.5); ~PT, ~INR - Anti Coag Clinic 1.8 (0.9-1.1)
== END 2023-02-27 08:23 | disposition home or self-care (01) ==
LOC: HO.ACS 08:00
PROVIDERS: PCP Internal Medicine; Visit Provider Internal Medicine
DX: Z79.01 Long term (current) use of anticoagulants (principal)

== ENCOUNTER → 2023-02-27 08:00 | Outpatient (BNVA) | payer OTHER, SELFPAY | PROVIDERS: PCP Internal Medicine; Visit Provider Internal Medicine | DX: I26.99 Other pulmonary embolism without acute cor pulmonale (principal); Z79.01 Long term (current) use of anticoagulants; Z51.81 Encounter for therapeutic drug level monitoring | CPT/HCPCS: 85610; 99211 ==

== ENCOUNTER 2023-03-27 08:03 | Outpatient (AMB) | payer OTHER, SELFPAY ==
[2023-03-27 08:09] LABS: Prothrombin Time Whole Bld POC 26.5 sec (11.1-13.5); ~PT, ~INR - Anti Coag Clinic 2.2 (0.9-1.1)
--- NOTE | 2023-03-27 08:15 | MHC.OFFVISCO ---
Intake Intake Visit Reasons: Anticoagulation Allergies No Known Allergies [No Known Allergies*] Allergy (Verified 03/27/23 08:04) Medication List - Last Reconciled 03/27/23 by Lissette Becker RN omega 2-ulp-aey-fish oil 60-90-500 mg (Fish Oil) 1 cap PO DAILY warfarin 5 mg See Protocol PO DAILY 90 days Nursing Note INR: 2.2 in therapeutic range Medications and supplements reviewed No changes in health, diet, medications, or supplements, Denies any signs and symptoms of bleeding or bruising or clotting. Bleeding, bruising, clotting discussed Nutritional guidance given Dose: 5MG DAILY F/U INR: 1MONTH Patient verbalizes understanding of instructions given Anti-Coag Initial Assessment Social Hx Patient Tobacco Use Status: Never used Tobacco Smoking packs per day: 0 alcohol intake: current Alcohol intake frequency: holidays/special occasions only Cardiovascular Hx: HTN Lung Disease HX: Other Cancer HX: No Psych. Illness/Depression: No Coding Level of Care Code Est Patient Level 1 Diagnoses Current use of anticoagulant therapy Z79.01 Assessment & Plan Assessment & Plan (1) Current use of anticoagulant therapy: Code(s): Z79.01 - [facility] (current) use of anticoagulants Category: Medical
== END 2023-03-27 08:16 | disposition home or self-care (01) ==
LOC: HO.ACS 08:03
PROVIDERS: PCP Internal Medicine; Visit Provider Internal Medicine
DX: Z79.01 Long term (current) use of anticoagulants (principal)

== ENCOUNTER → 2023-03-27 08:03 | Outpatient (BNVA) | payer OTHER, SELFPAY | PROVIDERS: PCP Internal Medicine; Visit Provider Internal Medicine | DX: I26.99 Other pulmonary embolism without acute cor pulmonale (principal); Z79.01 Long term (current) use of anticoagulants; Z51.81 Encounter for therapeutic drug level monitoring | CPT/HCPCS: 85610; 99211 ==

== ENCOUNTER 2023-04-24 08:01 | Outpatient (AMB) | payer OTHER, SELFPAY ==
--- NOTE | 2023-04-24 08:14 | MHC.OFFVISCO ---
Intake Intake Visit Reasons: Anticoagulation Allergies No Known Allergies [No Known Allergies*] Allergy (Verified 04/24/23 08:03) Medication List - Last Reconciled 04/24/23 by Lissette Becker RN omega 0-lox-jqk-fish oil 60-90-500 mg (Fish Oil) 1 cap PO DAILY warfarin 5 mg See Protocol PO DAILY 90 days Nursing Note INR: 1.5 in therapeutic range - pt missed a dose Medications and supplements reviewed No changes in health, diet, medications, or supplements, Denies any signs and symptoms of bleeding or bruising or clotting. Bleeding, bruising, clotting discussed Nutritional guidance given Dose:7.5mg x 1 day this week then 5mg daily F/U INR: 1 month - refuse sooner appt - he is only on warfarin per his choice and lower range per md Patient verbalizes understanding of instructions given Anti-Coag Initial Assessment Social Hx Patient Tobacco Use Status: Never used Tobacco Smoking packs per day: 0 alcohol intake: current Alcohol intake frequency: holidays/special occasions only Cardiovascular Hx: HTN Lung Disease HX: Other Cancer HX: No Psych. 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
== END 2023-04-24 08:18 | disposition home or self-care (01) ==
LOC: HO.ACS 08:01
PROVIDERS: PCP Internal Medicine; Visit Provider Internal Medicine
DX: Z79.01 Long term (current) use of anticoagulants (principal)

== ENCOUNTER → 2023-04-24 08:01 | Outpatient (BNVA) | payer OTHER, SELFPAY | PROVIDERS: PCP Internal Medicine; Visit Provider Internal Medicine | DX: I26.99 Other pulmonary embolism without acute cor pulmonale (principal); Z51.81 Encounter for therapeutic drug level monitoring; Z79.01 Long term (current) use of anticoagulants | CPT/HCPCS: 85610; 99211 ==

== ENCOUNTER 2023-05-22 08:02 | Outpatient (AMB) | payer OTHER, SELFPAY ==
[2023-05-22 08:08] LABS: Prothrombin Time Whole Bld POC 27.1 sec (11.1-13.5); ~PT, ~INR - Anti Coag Clinic 2.3 (0.9-1.1)
--- NOTE | 2023-05-22 08:12 | MHC.OFFVISCO ---
Intake Intake Visit Reasons: Anticoagulation Allergies No Known Allergies [No Known Allergies*] Allergy (Verified 05/22/23 08:04) Medication List - Last Reconciled 05/22/23 by Licha Briscoe RN omega 1-lxv-dlu-fish oil 60-90-500 mg (Fish Oil) 1 cap PO DAILY warfarin 5 mg See Protocol PO DAILY 90 days Nursing Note Amb to [facility] feeling well Medications and supplements reviewed No changes in health, diet, medications, or supplements Denies any unusual signs and symptoms of bruising, bleeding Denies any new Chest pain, SOB, or clotting INR: 2.3 in therapeutic range (1.8-2.5) Nutritional guidance given: balance greens and reds in diet, reviewed holiday food pitfalls Dose: continue usual dosing; 5mg daily F/U INR:4 weeks Patient verbalizes understanding of instructions given with accurate read back/ teach back of dosing Anti-Coag Initial Assessment Social Hx Patient Tobacco Use Status: Never used Tobacco Smoking packs per day: 0 alcohol intake: current Alcohol intake frequency: holidays/special occasions only Cardiovascular Hx: HTN Lung Disease HX: Other Cancer HX: No Psych. 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
== END 2023-05-22 08:16 | disposition home or self-care (01) ==
LOC: HO.ACS 08:02
PROVIDERS: PCP Internal Medicine; Visit Provider Internal Medicine
DX: Z79.01 Long term (current) use of anticoagulants (principal)

== ENCOUNTER → 2023-05-22 08:02 | Outpatient (BNVA) | payer OTHER, SELFPAY | PROVIDERS: PCP Internal Medicine; Visit Provider Internal Medicine | DX: I26.99 Other pulmonary embolism without acute cor pulmonale (principal); Z79.01 Long term (current) use of anticoagulants; Z51.81 Encounter for therapeutic drug level monitoring | CPT/HCPCS: 85610; 99211 ==

== ENCOUNTER 2023-06-19 08:00 | Outpatient (AMB) | payer OTHER, SELFPAY ==
--- NOTE | 2023-06-19 08:08 | MHC.OFFVISCO ---
Intake Intake Visit Reasons: Anticoagulation Allergies No Known Allergies [No Known Allergies*] Allergy (Verified 06/19/23 08:02) Medication List - Last Reconciled 06/19/23 by Lissette Becker RN omega 9-hzj-ipv-fish oil 60-90-500 mg (Fish Oil) 1 cap PO DAILY warfarin 5 mg See Protocol PO DAILY 90 days Nursing Note INR: 2.3 in therapeutic range Medications and supplements reviewed No changes in health, diet, medications, or supplements, Denies any signs and symptoms of bleeding or bruising or clotting. Bleeding, bruising, clotting discussed Nutritional guidance given Dose: 5mg daily F/U INR: 1 month Patient verbalizes understanding of instructions given Anti-Coag Initial Assessment Social Hx Patient Tobacco Use Status: Never used Tobacco Smoking packs per day: 0 alcohol intake: current Alcohol intake frequency: holidays/special occasions only Cardiovascular Hx: HTN Lung Disease HX: Other Cancer HX: No Psych. 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
[2023-06-19 08:37] LABS: Prothrombin Time Whole Bld POC 27.2 sec (11.1-13.5); ~PT, ~INR - Anti Coag Clinic 2.3 (0.9-1.1)
== END 2023-06-19 08:16 | disposition home or self-care (01) ==
LOC: HO.ACS 08:00
PROVIDERS: PCP Internal Medicine; Visit Provider Internal Medicine
DX: Z79.01 Long term (current) use of anticoagulants (principal)

== ENCOUNTER → 2023-06-19 08:00 | Outpatient (BNVA) | payer OTHER, SELFPAY | PROVIDERS: PCP Internal Medicine; Visit Provider Internal Medicine | DX: I26.99 Other pulmonary embolism without acute cor pulmonale (principal); Z79.01 Long term (current) use of anticoagulants; Z51.81 Encounter for therapeutic drug level monitoring | CPT/HCPCS: 85610; 99211 ==

== ENCOUNTER 2023-07-24 08:00 | Outpatient (AMB) | payer OTHER, SELFPAY ==
--- NOTE | 2023-07-24 08:12 | MHC.OFFVISCO ---
Intake Intake Visit Reasons: Anticoagulation Allergies No Known Allergies [No Known Allergies*] Allergy (Verified 07/24/23 08:04) Medication List - Last Reconciled 07/24/23 by Lissette Becker RN omega 0-yjf-uwc-fish oil 60-90-500 mg (Fish Oil) 1 cap PO DAILY warfarin 5 mg See Protocol PO DAILY 90 days Nursing Note INR: 3.0 in therapeutic range Medications and supplements reviewed No changes in health, diet, medications, or supplements, Denies any signs and symptoms of bleeding or bruising or clotting. Bleeding, bruising, clotting discussed Nutritional guidance given Dose: 5mg F/U INR: 4 weeks Patient verbalizes understanding of instructions given Anti-Coag Initial Assessment Social Hx Patient Tobacco Use Status: Never used Tobacco Smoking packs per day: 0 alcohol intake: current Alcohol intake frequency: holidays/special occasions only Cardiovascular Hx: HTN Lung Disease HX: Other Cancer HX: No Psych. 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
== END 2023-07-24 08:17 | disposition home or self-care (01) ==
LOC: HO.ACS 08:00
PROVIDERS: PCP Internal Medicine; Visit Provider Internal Medicine
DX: Z79.01 Long term (current) use of anticoagulants (principal)

== ENCOUNTER → 2023-07-24 08:00 | Outpatient (BNVA) | payer OTHER, SELFPAY | PROVIDERS: PCP Internal Medicine; Visit Provider Internal Medicine | DX: I26.99 Other pulmonary embolism without acute cor pulmonale (principal); Z79.01 Long term (current) use of anticoagulants; Z51.81 Encounter for therapeutic drug level monitoring | CPT/HCPCS: 85610; 99211 ==

== ENCOUNTER 2023-08-11 11:51 | Outpatient (AMB) | payer OTHER, SELFPAY ==
[2023-08-11 12:28] VITALS: BP 126/82; PULSE 90; O2SAT 96; BMI 28.1
--- NOTE | 2023-08-11 12:28 | A.OFFPC_ITS ---
Vital Signs 08/11/23 12:28 Height 6 ft 2 in Weight 219 lb BMI 28.1 BP 126/82 Blood Pressure Location Lt brachial Position Sitting Pulse 90 Pulse Source Pulse Oximeter Pulse Oximetry (%) 96 Oxygen Delivery Method Room Air Intake Visit Reasons: Annual PE Intake Note: Pt is here today for PE. Allergies No Known Allergies [No Known Allergies*] Allergy (Verified 08/11/23 12:30) Medication List - Last Reconciled 08/11/23 by Shannan Medrano MD omega 1-uez-kve-fish oil 60-90-500 mg (Fish Oil) 1 cap PO DAILY warfarin 5 mg See Protocol PO DAILY 90 days Tobacco use date assessed: 08/11/23 Dental Screening Dental Screen Date: 08/11/23 Did you have a dental visit in the last 12 months?: Yes Did you have a dental problem in the last 6 months where you did not have access to dental care?: No Was dental information given to patient?: Patient has dentist HPI Annual PE HPI Details Pt presents for PE. 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 1. Little interest or pleasure in doing things: not at all 2. Feeling down, depressed, or hopeless: not at all 3. Trouble falling or staying asleep, or sleeping too much: not at all 4. Feeling tired or having little energy: not at all 5. Poor appetite or overeating: not at all 6. Feeling bad about yourself - or that you are a failure or have let yourself or your family down: not at all 7. Trouble concentrating on things, such as reading the newspaper or watching television: not at all 8. Moving or speaking so slowly that other people could have noticed. Or the opposite - being so fidgety or restless that you have been moving around a lot more than usual: not at all 9. Thoughts that you would be better off or of hurting yourself in some way: not at all Total score: 0 Depression Screening Interpretation: Negative Depression Screening Done: Yes Source: Developed by Drs. Jimmy Johnson, Lizbeth Snyder, aRfat Garza and colleagues, with an educational liam from [employer]. Thrive Questionnaire Date Thrive assessed: 08/11/23 I am a: Patient What is your living situation today?: I have a steady place to live Within the past 12 months, did the food you bought not last and you didn't have the money to get more?: Never true Within the past 12 months, did you worry whether your food would run out before you got money to buy more?: Never true Do you have trouble paying for medicines?: No Do you have trouble getting transportation to medical appointments?: No Do you have trouble paying your heating and electricity bill?: No Do you have trouble taking care of your child, family member or friend?: No Do you have trouble with day-to-day activities such as bathing, preparing meals, shopping, managing finances, etc.?: No Are you currently unemployed and looking for a job?: No Are you interested in more education?: No Please select the resources that you would like help with: None Currently or been in a relationship where the following occur: no concerns reported THRIVE Score: 0 AUDIT C Alcohol Use Questionnaire (AUDIT-C) 1. How often do you have a drink containing alcohol?: Monthly or less 2. How many drinks containing alcohol do you have on a typical day when you are drinking?: 1 or 2 3. How often do you have six or more drinks on one occasion?: Never Total Score: 1 MOISÉS-7 AMB Questionnaire MOISÉS-7 Date MOISÉS - 7 assessed: 08/11/23 Feeling nervous, anxious, or on edge: 0 = Not at all Not being able to stop or control worryin = Not at all Worrying too much about different things: 0 = Not at all Trouble relaxin = Not at all Being so restless that it is hard to sit still: 0 = Not at all Becoming easily annoyed or irritable: 0 = Not at all Feeling afraid as if something awful might happen: 0 = Not at all Total MOISÉS-7 score (0-4 normal; 5-9 mild; 10-14 moderate; 15-21 severe): 0 Source: Developed by Drs. Jimmy Johnson, Lizbeth Snyder, Rafat Garza and colleagues, with an educational liam from [employer]. Review of Systems Const All systems reviewed & are unremarkable except as noted in HPI and below Reports no additional complaints Eyes Reports no additional complaints ENT Reports no additional complaints Card Reports no additional complaints Resp Reports no additional complaints GI Reports no additional complaints Reports no additional complaints Physical exam (Primary Care) Vital Signs: Last Vital Signs Pulse 90 08/11/23 12:28 BP 126/92 H 08/11/23 12:28 Pulse Ox 96 08/11/23 12:28 Oxygen Delivery Method Room Air 08/11/23 12:28 BMI result Body Mass Index 28.1 Tobacco/Smoking Status: Tobacco use Status Tobacco use date assessed 08/11/23 08/11/23 12:33 Patient Tobacco Use Status Never used Tobacco 08/11/23 12:33 e-Cigarette/Vaping Use Never Used 08/11/23 12:33 PHQ-9: PHQ-9 Score PHQ-9: Total score 0 08/11/23 12:35 Depression Screening Interpretation: Negative Thrive Assessment: Date of Thrive Assessment Date Thrive assessed 08/11/23 08/11/23 12:35 Currently or been in a relationship where the following occur: no concerns reported Const General: no acute distress HENMS Head: Yes normal to inspection Ears: hearing grossly normal bilaterally General nose exam: Normal external nose present Face and sinus: Yes normal facial exam Mouth: Normal oral and palatal mucosa present Throat: Yes posterior oropharynx normal Eyes General: appearance normal, both eyes and all related structures Neck Neck: Yes no lymphadenopathy and Yes supple Resp Effort & Inspection: normal respiratory effort Auscultation: clear to auscultation bilaterally Cardio Rhythm: regular rhythm Heart sounds: S1 normal heart sound present and S2 normal heart sound present GI Inspection: Yes normal to inspection Palpation (GI): Soft to palpation Percussion: Yes normal to percussion Auscultation: normal bowel sounds Assessment and Plan Assessment & Plan (1) Annual physical exam: Code(s): Z00.00 - Encounter for general adult medical examination without abnormal findi ngs Plan: Well-balanced diet regular physical activity discussed with the patient. He will return for fasting blood work. 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 Morales, on Warfarin, Code(s): I26.99 - Other pulmonary embolism without acute cor pulmonale Qualifiers: Pulmonary embolism type: unspecified Chronicity: unspecified Acute cor pulmonale presence: with acute cor pulmonale Qualified Code(s): I26.09 - Other pulmonary embolism with acute cor pulmonale Plan: Follow-up with certified medical records coder Orders: Orders Complete Blood Count Auto Diff Today R79.89 - Other specified abnormal findings of blood chemistry, Z00.00 - Encounter for general adult medical examination without abnormal findings Comprehensive [place]. Panel Fast Today R79.89 - Other specified abnormal findings of blood chemistry, Z00.00 - Encounter for general adult medical examination without abnormal findings Lipid Panel Today R79.89 - Other specified abnormal findings of blood chemistry, Z00.00 - Encounter for general adult medical examination without abnormal findings CT Coronary Calcium Score Today Coding Level of Care Code Est Pt Prev Care [id number]([id number]) Diagnoses Annual physical exam Z00.00 Elevated LFTs R79.89 Pulmonary embolism with acute cor pulmonale, unspecified chronicity, unspecified pulmonary embolism type I26.09 Pulmonary embolism type: unspecified Chronicity: unspecified Acute cor pulmonale presence: with acute cor pulmonale
== END 2023-08-11 13:00 | disposition home or self-care (01) ==
PROVIDERS: PCP Internal Medicine; Visit Provider Internal Medicine
DX: Z00.00 Encounter for general adult medical examination without abnormal findings (principal); R79.89 Other specified abnormal findings of blood chemistry; I26.09 Other pulmonary embolism with acute cor pulmonale
CPT/HCPCS: 99396

== ENCOUNTER 2023-08-27 11:25 | Outpatient (AMB) | payer OTHER, SELFPAY ==
[2023-08-27 11:33] LABS: Prothrombin Time Whole Bld POC 17.5 sec (11.1-13.5); ~PT, ~INR - Anti Coag Clinic 1.5 (0.9-1.1)
--- NOTE | 2023-08-27 11:45 | MHC.OFFVISCO ---
Intake Intake Visit Reasons: Anticoagulation Allergies No Known Allergies [No Known Allergies*] Allergy (Verified 08/27/23 11:26) Medication List - Last Reconciled 08/27/23 by Lissette Becker RN omega 3-nuv-zsx-fish oil 60-90-500 mg (Fish Oil) 1 cap PO DAILY warfarin 5 mg See Protocol PO DAILY 90 days Nursing Note INR 1.5 RANGE 1.8-2.5? out of therapeutic range Medications and supplements reviewed Patient status: may have missed some doses - had family emergency while on vacation, situation is improving Medications or supplements: no changes Diet: good Denies any signs and symptoms of bleeding or clotting or unusual bruising Bleeding, bruising, clotting discussed Nutritional guidance given: avoid greens x 3 days, eat foods to help raise the INR today Dose: 7.5mg x 2 days then 5mg daily F/U INR Date : 09/04/23 at 1100 ?? Patient verbalizing understanding of instructions given. Anti-Coag Initial Assessment Social Hx Patient Tobacco Use Status: Never used Tobacco Smoking packs per day: 0 alcohol intake: current Alcohol intake frequency: holidays/special occasions only Cardiovascular Hx: HTN Lung Disease HX: Other Cancer HX: No Psych. Illness/Depression: No Coding Level of Care Code Est Patient Level 1 Diagnoses Current use of anticoagulant therapy Z79.01 Results AMB INR Fingerstick AMB INR Fingerstick 1.5 Last Edit by Lissette Becker RN on 08/27/23 11:34 INTERFACE FAILURE CAUSES DUPLICATE RESULTS Assessment & Plan Assessment & Plan (1) Current use of anticoagulant therapy: Code(s): Z79.01 - salvage determiner (current) use of anticoagulants Category: Medical
== END 2023-08-27 11:51 | disposition home or self-care (01) ==
LOC: HO.ACS 11:25
PROVIDERS: PCP Internal Medicine; Visit Provider Internal Medicine
DX: Z79.01 Long term (current) use of anticoagulants (principal)

== ENCOUNTER → 2023-08-27 11:25 | Outpatient (BNVA) | payer OTHER, SELFPAY | PROVIDERS: PCP Internal Medicine; Visit Provider Internal Medicine | DX: I26.99 Other pulmonary embolism without acute cor pulmonale (principal); Z79.01 Long term (current) use of anticoagulants; Z51.81 Encounter for therapeutic drug level monitoring | CPT/HCPCS: 85610; 99211 ==

== ENCOUNTER 2023-09-04 10:55 | Outpatient (AMB) | payer OTHER, SELFPAY ==
[2023-09-04 11:01] LABS: Prothrombin Time Whole Bld POC 30.6 sec (11.1-13.5); ~PT, ~INR - Anti Coag Clinic 2.6 (0.9-1.1)
--- NOTE | 2023-09-04 11:02 | MHC.OFFVISCO ---
Intake Intake Visit Reasons: Anticoagulation Allergies No Known Allergies [No Known Allergies*] Allergy (Verified 09/04/23 10:56) Medication List - Last Reconciled 09/04/23 by Licha Briscoe RN warfarin 5 mg See Protocol PO DAILY 90 days Nursing Note Amb to ACS feeling well Medications and supplements reviewed No changes in health, diet, medications, or supplements Denies any unusual signs and symptoms of bruising, bleeding Denies any new Chest pain, SOB, or clotting INR: 2.6 just above range (1.8-2.5) Nutritional guidance given: have a green today then balance greens and reds in diet Dose: continue usual dosing;5mg daily F/U INR: 4 weeks Patient verbalizes understanding of instructions given with accurate read back/ teach back of dosing Anti-Coag Initial Assessment Social Hx Patient Tobacco Use Status: Never used Tobacco Smoking packs per day: 0 alcohol intake: current Alcohol intake frequency: holidays/special occasions only Cardiovascular Hx: HTN Lung Disease HX: Other Cancer HX: No Psych. Illness/Depression: No Questionnaires HAS-BLED Does the patient had uncontrolled Hypertension?: No Does the patient have renal disease?: No Does the patient have liver disease?: No Has the patient had major bleeding or predisposition to bleeding?: No Does the patient have labile INRs?: No Is the patient over 65 years of age?: No Is the patient on medications that gives them a predisposition to bleeding?: Yes Does the patient use alcohol?: Yes HAS-BLED Score: 2 CHADSVASC Age: <65 Gender: Male Does the patient have a history of CHF?: No Does the patient have a history of Hypertension?: No Does the patient have a history of Stroke/TIA/Thromboembolism?: Yes Does the patient have a history of Vascular Disease (prior NC, PAD or aortic plaque)?: No Does the patient have a history of Diabetes?: No CHADS VACS Score: 2 Reza Prediction Score Rsk VTE Active Cancer: No Previous VTE, excluding superficial vein thrombosis: Yes Reduced mobility: No Already known Thrombophilic Condition: Yes With-in last month Trauma and/or Surgery: No Elderly 70 year or older: No Heart and/or Respiratory Failure: No Acute Myocardial infarction and/or Ischemic Stroke: No Acute Infection and/or Rheumatologic Disorder: No Obesity (BMI 30 or greater): No Ongoing Hormonal Treatment: No Score: 6 Reza Score less than 4; Low Risk of VTE Reza Score 4 or greater; High Risk of VTE Coding Level of Care Code Est Patient Level 1 Diagnoses Current use of anticoagulant therapy Z79.01 Time Spent (min) 15 Assessment & Plan Assessment & Plan (1) Current use of anticoagulant therapy: Code(s): Z79.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
== END 2023-09-04 11:06 | disposition home or self-care (01) ==
LOC: HO.ACS 10:55
PROVIDERS: PCP Internal Medicine; Visit Provider Internal Medicine
DX: Z79.01 Long term (current) use of anticoagulants (principal)

== ENCOUNTER → 2023-09-04 10:55 | Outpatient (BNVA) | payer OTHER, SELFPAY | PROVIDERS: PCP Internal Medicine; Visit Provider Internal Medicine | DX: I26.99 Other pulmonary embolism without acute cor pulmonale (principal); Z79.01 Long term (current) use of anticoagulants; Z51.81 Encounter for therapeutic drug level monitoring | CPT/HCPCS: 85610; 99211 ==

== ENCOUNTER 2023-10-20 09:13 | Outpatient (AMB) | payer OTHER, SELFPAY ==
--- NOTE | 2023-10-20 09:04 | MHC.OFFVISCO ---
Intake Intake Visit Reasons: Anticoagulation Allergies No Known Allergies [No Known Allergies*] Allergy (Verified 10/20/23 08:52) Nursing Note INR: 2.2 in therapeutic range of 1.8-2.5 Medications and supplements reviewed: no changes No changes in health, diet, medications, or supplements, Denies any signs and symptoms of bleeding or bruising or clotting. Bleeding, bruising, clotting discussed Nutritional guidance given to cont to balance reds and greens Dose: 5mg daily F/U INR: 4 weeks Patient verbalizes understanding of instructions given Anti-Coag Initial Assessment Social Hx Patient Tobacco Use Status: Never used Tobacco Smoking packs per day: 0 alcohol intake: current Alcohol intake frequency: holidays/special occasions only Cardiovascular Hx: HTN Lung Disease HX: Other Cancer HX: No Psych. Illness/Depression: No Coding Level of Care Code Est Patient Level 1 Diagnoses Current use of anticoagulant therapy Z79.01 Assessment & Plan Assessment & Plan (1) Current use of anticoagulant therapy: Code(s): Z79.01 - manager intermediate (current) use of anticoagulants Category: Medical
[2023-10-21 12:12] LABS: Prothrombin Time Whole Bld POC 26.6 sec (11.1-13.5); ~PT, ~INR - Anti Coag Clinic 2.2 (0.9-1.1)
== END 2023-10-20 09:14 | disposition home or self-care (01) ==
LOC: HO.ACS 09:13
PROVIDERS: PCP Internal Medicine; Visit Provider Internal Medicine
DX: Z79.01 Long term (current) use of anticoagulants (principal)

== ENCOUNTER → 2023-10-20 09:13 | Outpatient (BNVA) | payer OTHER, SELFPAY | PROVIDERS: PCP Internal Medicine; Visit Provider Internal Medicine | DX: I26.99 Other pulmonary embolism without acute cor pulmonale (principal); Z51.81 Encounter for therapeutic drug level monitoring; Z79.01 Long term (current) use of anticoagulants | CPT/HCPCS: 85610; 99211 ==

== ENCOUNTER 2023-12-08 11:27 | Outpatient (AMB) | payer OTHER, SELFPAY ==
[2023-12-08 11:39] LABS: Prothrombin Time Whole Bld POC 25.8 sec (11.1-13.5); ~PT, ~INR - Anti Coag Clinic 2.2 (0.9-1.1)
--- NOTE | 2023-12-08 11:52 | MHC.OFFVISCO ---
Intake Intake Visit Reasons: Anticoagulation Allergies No Known Allergies [No Known Allergies*] Allergy (Verified 12/08/23 11:32) Medication List - Last Reconciled 12/08/23 by Lissette Becker RN warfarin 5 mg See Protocol PO DAILY 90 days Nursing Note INR: 2.2 in therapeutic range 1.8-2.5 Medications and supplements reviewed No changes in health, diet, medications, or supplements, Denies any signs and symptoms of bleeding or bruising or clotting. Bleeding, bruising, clotting discussed Nutritional guidance given - Review food list weekly Dose: keep same dose 5mg daily F/U INR: 1 month Patient verbalizes understanding of instructions given Anti-Coag Initial Assessment Social Hx Patient Tobacco Use Status: Never used Tobacco Smoking packs per day: 0 alcohol intake: current Alcohol intake frequency: holidays/special occasions only Cardiovascular Hx: HTN Lung Disease HX: Other Cancer HX: No Psych. Illness/Depression: No Coding Level of Care Code Est Patient Level 1 Diagnoses Current use of anticoagulant therapy Z79.01 Assessment & Plan Assessment & Plan (1) Current use of anticoagulant therapy: Code(s): Z79.01 - intermediate manager (current) use of anticoagulants Category: Medical
== END 2023-12-08 11:57 | disposition home or self-care (01) ==
LOC: HO.ACS 11:27
PROVIDERS: PCP Internal Medicine; Visit Provider Internal Medicine
DX: Z79.01 Long term (current) use of anticoagulants (principal)

== ENCOUNTER → 2023-12-08 11:27 | Outpatient (BNVA) | payer OTHER, SELFPAY | PROVIDERS: PCP Internal Medicine; Visit Provider Internal Medicine | DX: I26.99 Other pulmonary embolism without acute cor pulmonale (principal); Z51.81 Encounter for therapeutic drug level monitoring; Z79.01 Long term (current) use of anticoagulants | CPT/HCPCS: 85610; 99211 ==

== ENCOUNTER 2024-01-08 08:00 | Outpatient (AMB) | payer OTHER, SELFPAY ==
[2024-01-08 08:10] LABS: ~PT, ~INR - Anti Coag Clinic 2.5 (0.9-1.1)
--- NOTE | 2024-01-08 08:30 | MHC.OFFVISCO ---
Intake Intake Visit Reasons: Anticoagulation Allergies No Known Allergies [No Known Allergies*] Allergy (Verified 01/08/24 08:04) Medication List - Last Reconciled 01/08/24 by Kristina Carr RN warfarin 5 mg See Protocol PO DAILY 90 days Nursing Note NO CP,SOB,DIET/MED CHANGES,FALLS OR SX OF BLEEDING. CONTINUE PRESENT DOSE AND FOLLOW-UP IN 4 WEEKS. GOOD UNDERSTANDING OF DOSING INSTR. Anti-Coag Initial Assessment Social Hx Patient Tobacco Use Status: Never used Tobacco Smoking packs per day: 0 alcohol intake: current Alcohol intake frequency: holidays/special occasions only Cardiovascular Hx: HTN Lung Disease HX: Other Cancer HX: No Psych. 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
== END 2024-01-08 08:31 | disposition home or self-care (01) ==
LOC: HO.ACS 08:00
PROVIDERS: PCP Internal Medicine; Visit Provider Internal Medicine
DX: Z79.01 Long term (current) use of anticoagulants (principal)

== ENCOUNTER → 2024-01-08 08:00 | Outpatient (BNVA) | payer OTHER, SELFPAY | PROVIDERS: PCP Internal Medicine; Visit Provider Internal Medicine | DX: I26.99 Other pulmonary embolism without acute cor pulmonale (principal); Z79.01 Long term (current) use of anticoagulants; Z51.81 Encounter for therapeutic drug level monitoring | CPT/HCPCS: 85610; 99211 ==

== ENCOUNTER 2024-02-05 08:01 | Outpatient (AMB) | payer OTHER, SELFPAY ==
--- NOTE | 2024-02-05 08:06 | MHC.OFFVISCO ---
Intake Intake Visit Reasons: Anticoagulation Allergies No Known Allergies [No Known Allergies*] Allergy (Verified 02/05/24 08:02) Medication List - Last Reconciled 02/05/24 by Lizzie Tabares RN warfarin 5 mg See Protocol PO DAILY 90 days Nursing Note INR 3.2-? out of therapeutic range-1.8-2.5 Medications and supplements reviewed Patient status: no c.o, states may have taken dose twice- pill box enc Medications or supplements: no changes Diet: same Denies any signs and symptoms of bleeding or clotting or unusual bruising Bleeding, bruising, clotting discussed Nutritional guidance given: eat greens to lower, no reds for 2 days Dose: already took warfarin today, take 2.5mg tomm then cont reg 5mg x 7 F/U INR Date : pt ref earlier than 4 week? Patient verbalizing understanding of instructions given. Anti-Coag Initial Assessment Social Hx Patient Tobacco Use Status: Never used Tobacco Smoking packs per day: 0 alcohol intake: current Alcohol intake frequency: holidays/special occasions only Cardiovascular Hx: HTN Lung Disease HX: Other Cancer HX: No Psych. Illness/Depression: No Coding Level of Care Code Est Patient Level 1 Diagnoses Current use of anticoagulant therapy Z79.01 Assessment & Plan Assessment & Plan (1) Current use of anticoagulant therapy: Code(s): Z79.01 - long term care social worker (current) use of anticoagulants Category: Medical
[2024-02-05 08:07] LABS: Prothrombin Time Whole Bld POC 38.4 sec (11.1-13.5); ~PT, ~INR - Anti Coag Clinic 3.2 (0.9-1.1)
== END 2024-02-05 08:12 | disposition home or self-care (01) ==
LOC: HO.ACS 08:01
PROVIDERS: PCP Internal Medicine; Visit Provider Internal Medicine
DX: Z79.01 Long term (current) use of anticoagulants (principal)

== ENCOUNTER → 2024-02-05 08:01 | Outpatient (BNVA) | payer OTHER, SELFPAY | PROVIDERS: PCP Internal Medicine; Visit Provider Internal Medicine | DX: I26.99 Other pulmonary embolism without acute cor pulmonale (principal); Z79.01 Long term (current) use of anticoagulants; Z51.81 Encounter for therapeutic drug level monitoring | CPT/HCPCS: 85610; 99211 ==

== ENCOUNTER 2024-03-04 07:59 | Outpatient (AMB) | payer OTHER, SELFPAY ==
[2024-03-04 08:11] LABS: Prothrombin Time Whole Bld POC 19.1 sec (11.1-13.5); ~PT, ~INR - Anti Coag Clinic 1.6 (0.9-1.1)
--- NOTE | 2024-03-04 08:15 | MHC.OFFVISCO ---
Intake Intake Visit Reasons: Anticoagulation Allergies No Known Allergies [No Known Allergies*] Allergy (Verified 03/04/24 07:59) Medication List - Last Reconciled 03/04/24 by Lissette Becker RN warfarin 5 mg See Protocol PO DAILY 90 days Nursing Note INR 1.6? out of therapeutic range 1.8-2.5 he reamains on warfarin per his choice - his md stated he could go off Medications and supplements reviewed Patient status: missed a dose friday, states he feels fine no c/p or sob, Medications or supplements: no changes Diet: good Denies any signs and symptoms of bleeding or clotting or unusual bruising Bleeding, bruising, clotting discussed Nutritional guidance given: avoid greens x 3 days, have foods to help raise the INR next 3 days Dose: he stated he prefers to not change his dose and stay on 5mg daily, he is aware of the risks, but also knows his md stated he could go off the warfarin F/U INR Date : 4 weeks per pt request ?? Patient verbalizing understanding of instructions given. Anti-Coag Initial Assessment Social Hx Patient Tobacco Use Status: Never used Tobacco Smoking packs per day: 0 alcohol intake: current Alcohol intake frequency: holidays/special occasions only Cardiovascular Hx: HTN Lung Disease HX: Other Cancer HX: No Psych. Illness/Depression: No Coding Level of Care Code Est Patient Level 1 Diagnoses Current use of anticoagulant therapy Z79.01 Results AMB INR Fingerstick AMB INR Fingerstick 1.6 Last Edit by Lissette Becker RN on 03/04/24 08:05 manual entry Assessment & Plan Assessment & Plan (1) Current use of anticoagulant therapy: Code(s): Z79.01 - salvage determiner (current) use of anticoagulants Category: Medical
== END 2024-03-04 08:20 | disposition home or self-care (01) ==
LOC: HO.ACS 07:59
PROVIDERS: PCP Internal Medicine; Visit Provider Internal Medicine
DX: Z79.01 Long term (current) use of anticoagulants (principal)

== ENCOUNTER → 2024-03-04 07:59 | Outpatient (BNVA) | payer OTHER, SELFPAY | PROVIDERS: PCP Internal Medicine; Visit Provider Internal Medicine | DX: I26.99 Other pulmonary embolism without acute cor pulmonale (principal); Z79.01 Long term (current) use of anticoagulants; Z51.81 Encounter for therapeutic drug level monitoring | CPT/HCPCS: 85610; 99211 ==

== ENCOUNTER 2024-04-01 07:58 | Outpatient (AMB) | payer OTHER, SELFPAY ==
--- NOTE | 2024-04-01 08:16 | MHC.OFFVISCO ---
Intake Intake Visit Reasons: Anticoagulation Allergies No Known Allergies [No Known Allergies*] Allergy (Verified 04/01/24 08:01) Medication List - Last Reconciled 04/01/24 by Licha Campo RN warfarin 5 mg See Protocol PO DAILY 90 days Nursing Note INR 1.5?out of therapeutic range of 1.8-2.5 Medications and supplements reviewed Patient status: well Medications or supplements: no changes Diet: usual diet for pt Denies any signs and symptoms of bleeding or clotting or unusual bruising Bleeding, bruising, clotting discussed Nutritional guidance given: to continue to balance fruits and vegetables Dose: increase today's dose to 7.5mg then usual dose of 5mg daily F/U INR Date : 4 weeks?? Patient verbalizing understanding of instructions given. Anti-Coag Initial Assessment Social Hx Patient Tobacco Use Status: Never used Tobacco Smoking packs per day: 0 alcohol intake: current Alcohol intake frequency: holidays/special occasions only Cardiovascular Hx: HTN Lung Disease HX: Other Cancer HX: No Psych. Illness/Depression: No Coding Level of Care Code Est Patient Level 1 Diagnoses Current use of anticoagulant therapy Z79.01 Results AMB INR Fingerstick AMB INR Fingerstick 1.5 Last Edit by Licha Campo RN on 04/01/24 08:14 interface delay Assessment & Plan Assessment & Plan (1) Current use of anticoagulant therapy: Code(s): Z79.01 - penitentiary (current) use of anticoagulants Category: Medical
[2024-04-01 08:18] LABS: Prothrombin Time Whole Bld POC 18.5 sec (11.1-13.5); ~PT, ~INR - Anti Coag Clinic 1.5 (0.9-1.1)
== END 2024-04-01 08:18 | disposition home or self-care (01) ==
LOC: HO.ACS 07:58
PROVIDERS: PCP Internal Medicine; Visit Provider Internal Medicine
DX: Z79.01 Long term (current) use of anticoagulants (principal)

== ENCOUNTER → 2024-04-01 07:58 | Outpatient (BNVA) | payer OTHER, SELFPAY | PROVIDERS: PCP Internal Medicine; Visit Provider Internal Medicine | DX: I26.99 Other pulmonary embolism without acute cor pulmonale (principal); Z79.01 Long term (current) use of anticoagulants; Z51.81 Encounter for therapeutic drug level monitoring | CPT/HCPCS: 85610; 99211 ==

== ENCOUNTER 2024-04-29 08:08 | Outpatient (AMB) | payer OTHER, SELFPAY ==
[2024-04-29 08:12] LABS: Prothrombin Time Whole Bld POC 34.2 sec (11.1-13.5); ~PT, ~INR - Anti Coag Clinic 2.9 (0.9-1.1)
--- NOTE | 2024-04-29 08:15 | MHC.OFFVISCO ---
Intake Intake Visit Reasons: Anticoagulation Allergies No Known Allergies [No Known Allergies*] Allergy (Verified 04/29/24 08:08) Medication List - Last Reconciled 04/29/24 by Lissette Becker RN warfarin 5 mg See Protocol PO DAILY 90 days Nursing Note INR: 2.9 in therapeutic range Medications and supplements reviewed No changes in health, diet, medications, or supplements, Denies any signs and symptoms of bleeding or bruising or clotting. Bleeding, bruising, clotting discussed Nutritional guidance given Dose: 5MG DAILY F/U INR: 1 MONTH Patient verbalizes understanding of instructions given Anti-Coag Initial Assessment Social Hx Patient Tobacco Use Status: Never used Tobacco Smoking packs per day: 0 alcohol intake: current Alcohol intake frequency: holidays/special occasions only Cardiovascular Hx: HTN Lung Disease HX: Other Cancer HX: No Psych. Illness/Depression: No Coding Level of Care Code Est Patient Level 1 Diagnoses Current use of anticoagulant therapy Z79.01 Assessment & Plan Assessment & Plan (1) Current use of anticoagulant therapy: Code(s): Z79.01 - residential (current) use of anticoagulants Category: Medical
== END 2024-04-29 08:17 | disposition home or self-care (01) ==
LOC: HO.ACS 08:08
PROVIDERS: PCP Internal Medicine; Visit Provider Internal Medicine
DX: Z79.01 Long term (current) use of anticoagulants (principal)

== ENCOUNTER → 2024-04-29 08:08 | Outpatient (BNVA) | payer OTHER, SELFPAY | PROVIDERS: PCP Internal Medicine; Visit Provider Internal Medicine | DX: I26.99 Other pulmonary embolism without acute cor pulmonale (principal); Z79.01 Long term (current) use of anticoagulants; Z51.81 Encounter for therapeutic drug level monitoring | CPT/HCPCS: 85610; 99211 ==

== ENCOUNTER 2024-06-03 07:59 | Outpatient (AMB) | payer OTHER, SELFPAY ==
--- NOTE | 2024-06-03 08:06 | MHC.OFFVISCO ---
Intake Intake Visit Reasons: Anticoagulation Allergies No Known Allergies [No Known Allergies*] Allergy (Verified 06/03/24 08:01) Medication List - Last Reconciled 06/03/24 by Licha Campo RN warfarin 5 mg See Protocol PO DAILY 90 days Nursing Note INR: 1.7out of therapeutic range of 1.8-2.5 Medications and supplements reviewed No changes in health, diet, medications, or supplements, Denies any signs and symptoms of bleeding or bruising or clotting. Bleeding, bruising, clotting discussed Nutritional guidance given: moe bell today Dose: 5mg daily F/U INR: 4 weeks Patient verbalizes understanding of instructions given Anti-Coag Initial Assessment Social Hx Patient Tobacco Use Status: Never used Tobacco Smoking packs per day: 0 alcohol intake: current Alcohol intake frequency: holidays/special occasions only Cardiovascular Hx: HTN Lung Disease HX: Other Cancer HX: No Psych. Illness/Depression: No Coding Level of Care Code Est Patient Level 1 Diagnoses Current use of anticoagulant therapy Z79.01 Results AMB INR Fingerstick AMB INR Fingerstick 1.7 Last Edit by Licha Campo RN on 06/03/24 08:15 interface delay Assessment & Plan Assessment & Plan (1) Current use of anticoagulant therapy: Code(s): Z79.01 - care home (current) use of anticoagulants Category: Medical
[2024-06-03 08:16] LABS: Prothrombin Time Whole Bld POC 20.1 sec (11.1-13.5); ~PT, ~INR - Anti Coag Clinic 1.7 (0.9-1.1)
== END 2024-06-03 08:17 | disposition home or self-care (01) ==
LOC: HO.ACS 07:59
PROVIDERS: PCP Internal Medicine; Visit Provider Internal Medicine
DX: Z79.01 Long term (current) use of anticoagulants (principal)

== ENCOUNTER → 2024-06-03 07:59 | Outpatient (BNVA) | payer OTHER, SELFPAY | PROVIDERS: PCP Internal Medicine; Visit Provider Internal Medicine | DX: I26.99 Other pulmonary embolism without acute cor pulmonale (principal); Z79.01 Long term (current) use of anticoagulants; Z51.81 Encounter for therapeutic drug level monitoring | CPT/HCPCS: 85610; 99211 ==

== ENCOUNTER 2024-07-01 07:59 | Outpatient (AMB) | payer OTHER, SELFPAY ==
[2024-07-01 08:07] LABS: Prothrombin Time Whole Bld POC 18.3 sec (11.1-13.5); ~PT, ~INR - Anti Coag Clinic 1.5 (0.9-1.1)
--- NOTE | 2024-07-01 08:09 | MHC.OFFVISCO ---
Intake Intake Visit Reasons: Anticoagulation Allergies No Known Allergies [No Known Allergies*] Allergy (Verified 07/01/24 08:00) Medication List - Last Reconciled 07/01/24 by Licha Campo, RN warfarin 5 mg See Protocol PO DAILY 90 days Nursing Note INR: 1.5 in therapeutic range 1.8-2.5 Medications and supplements reviewed No changes in health, diet, medications, or supplements, Denies any signs and symptoms of bleeding or bruising or clotting. Bleeding, bruising, clotting discussed Nutritional guidance given Dose: increase today's dose to 7.5mg then 5mg daily F/U INR: 4 weeks Patient verbalizes understanding of instructions given Anti-Coag Initial Assessment Social Hx Patient Tobacco Use Status: Never used Tobacco Smoking packs per day: 0 alcohol intake: current Alcohol intake frequency: holidays/special occasions only Cardiovascular Hx: HTN Lung Disease HX: Other Cancer HX: No Psych. Illness/Depression: No Coding Level of Care Code Est Patient Level 1 Diagnoses Current use of anticoagulant therapy Z79.01 Assessment & Plan Assessment & Plan (1) Current use of anticoagulant therapy: Code(s): Z79.01 - [facility] (current) use of anticoagulants Category: Medical
== END 2024-07-01 08:12 | disposition home or self-care (01) ==
LOC: HO.ACS 07:59
PROVIDERS: PCP Internal Medicine; Visit Provider Internal Medicine
DX: Z79.01 Long term (current) use of anticoagulants (principal)

== ENCOUNTER → 2024-07-01 07:59 | Outpatient (BNVA) | payer OTHER, SELFPAY | PROVIDERS: PCP Internal Medicine; Visit Provider Internal Medicine | DX: I26.99 Other pulmonary embolism without acute cor pulmonale (principal); Z79.01 Long term (current) use of anticoagulants; Z51.81 Encounter for therapeutic drug level monitoring | CPT/HCPCS: 85610; 99211 ==

== ENCOUNTER 2024-07-29 10:46 | Outpatient (AMB) | payer OTHER, SELFPAY ==
[2024-07-29 10:54] LABS: Prothrombin Time Whole Bld POC 25.3 sec (11.1-13.5); ~PT, ~INR - Anti Coag Clinic 2.1 (0.9-1.1)
--- NOTE | 2024-07-29 10:57 | MHC.OFFVISCO ---
Intake Intake Visit Reasons: Anticoagulation Allergies No Known Allergies [No Known Allergies*] Allergy (Verified 07/29/24 10:48) Medication List - Last Reconciled 07/29/24 by Licha Campo, RN warfarin 5 mg See Protocol PO DAILY 90 days Nursing Note INR: 2.1 in therapeutic range of 1.8-2.5 Medications and supplements reviewed No changes in health, diet, medications, or supplements, Denies any signs and symptoms of bleeding or bruising or clotting. Bleeding, bruising, clotting discussed Nutritional guidance given Dose: 5mg daily F/U INR: 4 weeks Patient verbalizes understanding of instructions given Anti-Coag Initial Assessment Social Hx Patient Tobacco Use Status: Never used Tobacco Smoking packs per day: 0 alcohol intake: current Alcohol intake frequency: holidays/special occasions only Cardiovascular Hx: HTN Lung Disease HX: Other Cancer HX: No Psych. Illness/Depression: No Coding Level of Care Code Est Patient Level 1 Diagnoses Current use of anticoagulant therapy Z79.01 Assessment & Plan Assessment & Plan (1) Current use of anticoagulant therapy: Code(s): Z79.01 - [facility] (current) use of anticoagulants Category: Medical
== END 2024-07-29 10:58 | disposition home or self-care (01) ==
LOC: HO.ACS 10:46
PROVIDERS: PCP Internal Medicine; Visit Provider Internal Medicine
DX: Z79.01 Long term (current) use of anticoagulants (principal)

== ENCOUNTER → 2024-07-29 10:46 | Outpatient (BNVA) | payer OTHER, SELFPAY | PROVIDERS: PCP Internal Medicine; Visit Provider Internal Medicine | DX: I26.99 Other pulmonary embolism without acute cor pulmonale (principal); Z79.01 Long term (current) use of anticoagulants; Z51.81 Encounter for therapeutic drug level monitoring | CPT/HCPCS: 85610; 99211 ==

== ENCOUNTER → 2024-08-25 11:20 | Outpatient (BNVA) | payer OTHER, SELFPAY | PROVIDERS: PCP Internal Medicine; Visit Provider Internal Medicine | DX: Z00.00 Encounter for general adult medical examination without abnormal findings (principal); I26.09 Other pulmonary embolism with acute cor pulmonale; I10 Essential (primary) hypertension | CPT/HCPCS: 96127; 99396 ==

== ENCOUNTER → 2024-08-26 07:53 | Outpatient (BNVA) | payer OTHER, SELFPAY | PROVIDERS: PCP Internal Medicine; Visit Provider Internal Medicine | DX: I26.99 Other pulmonary embolism without acute cor pulmonale (principal); Z79.01 Long term (current) use of anticoagulants; Z51.81 Encounter for therapeutic drug level monitoring | CPT/HCPCS: 85610; 99211 ==

== ENCOUNTER 2024-09-21 07:15 | Outpatient (REF) | payer OTHER, SELFPAY ==
--- OUTSIDE RECORDS SUMMARY | 2024-09-21 07:18 | XMS_ITS | Encounter Summary ---
Author Organization [facility] Address [phone] [place] [address] Care Team Providers Care Local Operator Name Role Phone Elfego Morales MD Unavailable Shannan Medrano MD Primary Care Provider Jacobo Sherwood MD Unavailable Javed Griffin MD Unavailable [phone] Encounter Details Date Type Department Care Team (Late st Contact Info) Description 11/28/2022 Procedure Pass [facility] [address] [place] [address] Social History Tobacco Use Types Packs/Day Years Used Date Smoking Tobacco: Never Smokeless Tobacco: Never Alcohol Use Standard Drinks/Week Comments Not Currently 0 (1 standard drink = 0.6 oz pur e alcohol) social Education Answer Date Recorded Are you interested in more education? Not on nayely e 11/15/2022 Are you concerned about learning? Not on file 11/15/2022 No 11/15/2022 No 11/15/2022 Sex and Gender Information Value Date Recorded Sex Assigned at Male 06/27/2020 12:30 PM EST Gender Identity Male 06/27/2020 12:30 PM EST Sexual Orientation Straight 06/27/2020 12 :30 PM EST documented as of this encounter Plan of Treatment Not on file documented as of this encounter Visit Diagnoses Not on filedocumented in this encounter Care Teams Local Operator Relationship Specialty Start Date End Date Shannan Medrano MD [address] [place] [address] PCP - General Internal Medicine 06/01/21 Elfego Morales MD [address] [place] [address] [place] [address] Pulmonary Disease 08/14/20 Jacobo Sherwood MD [address] [place] [address] MARIA GUADALUPE@[email or web address] Pulmonary Disease 07/25/21 Javed Griffin MD [address] [place] [address] DARLENE@[email or web address] Cardiothoracic Surgery 07/25/21 documented as of this encounter Additional Source Comments The information contained in this document represents components of the legal health record. It is not the complete legal health record.[facility]
--- OUTSIDE RECORDS SUMMARY | 2024-09-21 07:18 | XMS_ITS | Encounter Summary ---
Author Organization [facility] Address [phone] [place] [address] Care Team Providers Care Ranch Hand Supervisor Name Role Phone Elfego Morales MD Unavailable Shannan Medrano MD Primary Care Provider Jacobo Sherwood MD Unavailable [phone] Javed Griffin MD Unavailable Encounter Details Date Type Department Care Team (Late st Contact Info) Description 06/18/2021 Procedure Pass [facility] [place] PERIOPERATIVE DEPT [address] [place] [id number] Social History Tobacco Use Types Packs/Day Years Used Date Smoking Tobacco: Never Smokeless Tobacco: Never Alcohol Use Standard Drinks/Week Comments Not Currently 0 (1 standard drink = 0.6 oz pur e alcohol) social Sex and Gender Information Value Date Recorded Sex Assigned at Male 06/27/2020 12:30 PM EST Gender Identity Male 06/27/2020 12:30 PM EST Sexual Orientation Straight 06/27/2020 12 :30 PM EST documented as of this encounter Plan of Treatment Not on file documented as of this encounter Visit Diagnoses Not on filedocumented in this encounter Care Teams Ranch Hand Supervisor Relationship Specialty Start Date End Date Shannan Medrano MD [address] [place] [address] PCP - General Internal Medicine 06/01/21 Elfego Morales MD [address] [place] [address] Pulmonary Disease 08/14/20 Jacobo Sherwood MD [address] [place] [address] MARIA GUADALUPE@[email or web address] [place] Pulmonary Disease 07/25/21 Javed Griffin MD [address] [place] [address] DARLENE@[email or web address] Cardiothoracic Surgery 07/25/21 documented as of this encounter Additional Source Comments The information contained in this document represents components of the legal health record. It is not the complete legal health record.[facility]
--- OUTSIDE RECORDS SUMMARY | 2024-09-21 07:18 | XMS_ITS | Encounter Summary ---
Author Organization [facility] Address [phone] [place] [address] Care Team Providers Care Talent Acquisition Program Manager Name Role Phone Elfego Morales MD Unavailable [phone] Elfego Morales MD Primary Care Provider Shannan Medrano MD Primary Care Provider Jacobo Sherwood MD Unavailable [phone] Javed Griffin MD Unavailable [phone] Encounter Details Date Type Department Care Team (Late st Contact Info) Description 09/22/[address] [facility] [place], [address] [place] [address] Jacobo Sherwood MD [address] [address] MARIA [email or web address] Social History Tobacco Use Types Packs/Day Years Used Date Smoking Tobacco: Never Assessed Sex and Gender Information Value Date Recorded Sex Assigned at Male 06/27/2020 12:30 PM EST Gender Identity Male 06/27/2020 12:30 PM EST Sexual Orientation Straight 06/27/2020 12 :30 PM EST documented as of this encounter Plan of Treatment Not on file documented as of this encounter Visit Diagnoses Not on filedocumented in this encounter Care Teams Talent Acquisition Program Manager Relationship Specialty Start Date End Date Elfego Morales MD [address] [place] [address] PCP - General Pulmonary Disease 12/04/20 05/31/21 Shannan Medrano MD [address] [place] [address] PCP - General Internal Medicine 06/01/21 Elfego Morales MD [address] [place] [address] Pulmonary Disease 08/14/20 Jacobo Sherwood MD [address] [place] [address] MARIA GUADALUPE@[email or web address] Pulmonary Disease 07/25/21 Javed Griffin MD [address] [place] [address] DARLENE@[email or web address] Cardiothoracic Surgery 07/25/21 documented as of this encounter Additional Source Comments The information contained in this document represents components of the legal health record. It is not the complete legal health record.[facility]
--- OUTSIDE RECORDS SUMMARY | 2024-09-21 07:18 | XMS_ITS | Encounter Summary ---
Author Organization [facility] Address [phone] [place] [address] Care Team Providers Care Television Announcer Name Role Phone Elfego Morales MD Unavailable [phone] Shannan Medrano MD Primary Care Provider [phone] Jacobo Sherwood MD Unavailable [phone] Javed Griffin MD Unavailable Encounter Details Date Type Department Care Team (Late st Contact Info) Description 07/25/2021 Procedure Pass [facility] [address] [place] [address] Social History Tobacco Use Types Packs/Day Years [...] on filedocumented in this encounter Care Teams Television Announcer Relationship Specialty Start Date End Date Shannan Medrano MD [address] [place] [address] PCP - General Internal Medicine 06/01/21 Elfego Morales MD [address] [place] [address] Pulmonary Disease 08/14/20 Jacobo Sherwood MD [address] [place] [address] MARIA GUADALUPE@[email or web address] Pulmonary Disease 07/25/21 Javed Griffin MD [address] [place] [address] DARLENE@[email or web address] Cardiothoracic Surgery 07/25/21 documented as of this encounter Additional Source Comments The information contained in this document represents components of the legal health record. It is not the complete legal health record.[facility]
--- OUTSIDE RECORDS SUMMARY | 2024-09-21 07:18 | XMS_ITS | Encounter Summary ---
Author Organization [facility] Address [phone] [place] [address] Care Team Providers Care Gum Rolling Machine Operator Name Role Phone Elfego Morales MD Unavailable Elfego Morales MD Primary Care Provider Shannan Medrano MD Primary Care Provider Jacobo Sherwood MD Unavailable [phone] Javed Griffin MD Unavailable Encounter Details Date Type Department Care Team (Late st Contact Info) Description 12/07/2020 Procedure Pass [facility] Cardiac Interventional Pain Physician [address] [place] [address] Social History Tobacco Use Types Packs/Day [...] on filedocumented in this encounter Care Teams Gum Rolling Machine Operator Relationship Specialty Start Date End Date Elfego Morales MD [address] [place] [address] PCP - General Pulmonary Disease 12/04/20 05/31/21 Shannan Medrano MD [address] [place] [address] PCP - General Internal Medicine 06/01/21 Elfego Morales MD [address] [place] [address] [place] [address] Pulmonary Disease 08/14/20 Jacobo Sherwood MD [address] [place] [address] MARIA GUADALUPE@[email or web address] Pulmonary Disease 07/25/21 Javed Griffin MD [address] [place] [address] DARLENE@[email or web address] [email or web address] Cardiothoracic Surgery 07/25/21 documented as of this encounter Additional Source Comments The information contained in this document represents components of the legal health record. It is not the complete legal health record.[facility]
--- OUTSIDE RECORDS SUMMARY | 2024-09-21 07:19 | XMS_ITS | Encounter Summary ---
Author Organization [facility] Address [phone] [place] [address] Care Team Providers Care Office Machines Sales Representative Name Role Phone Elfego Morales MD Unavailable Shannan Medrano MD Primary Care Provider Jacobo Sherwood MD Unavailable [phone] Javed Griffin MD Unavailable Encounter Details Date Type Department Care Team (Late st Contact Info) Description 06/21/2021 Procedure Pass [facility] Cardiac US [address] [place] [address] Social History Tobacco Use Types Packs/Day Years [...] on filedocumented in this encounter Care Teams Office Machines Sales Representative Relationship Specialty Start Date End Date Shannan Medrano MD [address] [place] [address] PCP - General Internal Medicine 06/01/21 Elfego Morales MD [address] [place] [address] Pulmonary Disease 08/14/20 Jacobo Sherwood MD [address] [place] [address] MARIA GUADALUPE@[email or web address] Pulmonary Disease 07/25/21 Javed Griffin MD [address] [place] [address] DARLENE@[email or web address] Cardiothoracic Surgery 07/25/21 documented as of this encounter Additional Source Comments The information contained in this document represents components of the legal health record. It is not the complete legal health record.[facility]
--- OUTSIDE RECORDS SUMMARY | 2024-09-21 07:19 | XMS_ITS | Encounter Summary ---
Author Organization [facility] Address [phone] [place] [address] Care Team Providers Care County Demonstrator Name Role Phone Elfego Morales MD Unavailable Shannan Medrano MD Primary Care Provider Jacobo Sherwood MD Unavailable [phone] Javed Griffin MD Unavailable [phone] Encounter Details Date Type Department Care Team (Late st Contact Info) Description 07/14/2021 Procedure Pass [facility] [place] Ship Joiner [address] [place] [address] Social History Tobacco Use Types [...] on filedocumented in this encounter Care Teams County Demonstrator Relationship Specialty Start Date End Date Shannan Medrano MD [address] [place] [address] PCP - General Internal Medicine 06/01/21 Elfego Morales MD [address] [place] [address] Pulmonary Disease 08/14/20 Jacobo Sherwood MD [address] [place] [address] MARIA GUADALUPE@[email or web address] Pulmonary Disease 07/25/21 Javed Griffin MD [address] [place] [address] DARLENE@[email or web address] Cardiothoracic Surgery 07/25/21 documented as of this encounter Additional Source Comments The information contained in this document represents components of the legal health record. It is not the complete legal health record.[facility]
--- OUTSIDE RECORDS SUMMARY | 2024-09-21 07:19 | XMS_ITS | Encounter Summary ---
Author Organization [facility] Address [phone] [place] [address] Care Team Providers Care Land Reclamation Specialist Name Role Phone Elfego Morales MD Unavailable Shannan Medrano MD Primary Care Provider [phone] Jcaobo Sherwood MD Unavailable [phone] Javed Griffin MD Unavailable Encounter Details Date Type Department Care Team (Late st Contact Info) Description 06/18/2021 Procedure Pass [facility] [place] Cardiac US [address] [place] [address] Social History Tobacco Use Types Packs/Day Years [...] on filedocumented in this encounter Care Teams Land Reclamation Specialist Relationship Specialty Start Date End Date Shannan Medrano MD [address] [place] [address] PCP - General Internal Medicine 06/01/21 Elfego Morales MD [address] [place] [address] Pulmonary Disease 08/14/20 Jacobo Sherwood MD [address] [place] [address] MARIA GUADALUPE@[email or web address] Pulmonary Disease 07/25/21 Javed Griffin MD [address] [place] [address] DARLENE@[email or web address] Cardiothoracic Surgery 07/25/21 documented as of this encounter Additional Source Comments The information contained in this document represents components of the legal health record. It is not the complete legal health record.[facility]
--- OUTSIDE RECORDS SUMMARY | 2024-09-21 07:19 | XMS_ITS | Encounter Summary ---
Author Organization [facility] Address [phone] [place] [address] Care Team Providers Care Assistant Producer Name Role Phone Elfego Morales MD Unavailable Elfego Morales MD Primary Care Provider Shannan Medrano MD Primary Care Provider [phone] Jacboo Sherwood MD Unavailable [phone] Javed Griffin MD Unavailable Encounter Details Date Type Department Care Team (Late st Contact Info) Description 03/06/2021 Procedure Pass [facility] [place] [address] [place] [address] Social History Tobacco Use Types Packs/Day Years [...] on filedocumented in this encounter Care Teams Assistant Producer Relationship Specialty Start Date End Date Elfego Morales MD [address] [facility] [place] [address] PCP - General Pulmonary Disease 12/04/20 05/31/21 Shannan Medrano MD [address] [place] [address] PCP - General Internal Medicine 06/01/21 Elfego Morales MD [facility] [place] [address] Pulmonary Disease 08/14/20 Jacobo Sherwood MD [address] [place] [address] MARIA GUADALUPE@[facility] Pulmonary Disease 07/25/21 Javed Griffin MD [address] [place] [address] DARLENE@[email or web address] Cardiothoracic Surgery 07/25/21 documented as of this encounter Additional Source Comments The information contained in this document represents components of the legal health record. It is not the complete legal health record.[facility]
--- OUTSIDE RECORDS SUMMARY | 2024-09-21 07:19 | XMS_ITS | Encounter Summary ---
Author Organization [facility] Address [phone] [place] [address] Care Team Providers Care Funeral Home Location Manager Name Role Phone Elfego Morales MD Unavailable Shannan Medrano MD Primary Care Provider [phone] Jacobo Sherwood MD Unavailable [phone] Javed Griffin MD Unavailable Encounter Details Date Type Department Care Team (Late st Contact Info) Description 07/14/2021 Procedure Pass [facility] Cardiac Geothermal Heat Pump Machinist [address] [place] [address] Social History Tobacco Use Types [...] on filedocumented in this encounter Care Teams Funeral Home Location Manager Relationship Specialty Start Date End Date Shannan Medrano MD [address] [place] [address] PCP - General Internal Medicine 06/01/21 Elfego Morales MD [address] [place] [address] Pulmonary Disease 08/14/20 Jacobo Sherwood MD [address] [place] [address] MARIA GUADALUPE@[email or web address] Pulmonary Disease 07/25/21 Javed Griffin MD [address] [place] [address] DARLENE@[email or web address] Cardiothoracic Surgery 07/25/21 documented as of this encounter Additional Source Comments The information contained in this document represents components of the legal health record. It is not the complete legal health record.[facility]
--- OUTSIDE RECORDS SUMMARY | 2024-09-21 07:19 | XMS_ITS | Clinical Summary ---
Author Organization [facility] Address [phone] [facility] [place] [address] Care Team Providers Care Weapons Specialist Name Role Phone Elfego Morales MD Unavailable Shannan Medrano MD Primary Care Provider Jacobo Sherwood MD Unavailable [phone] Javed Griffin MD Unavailable [phone] Allergies Active Allergy Reactions Criticality Noted Date Comments Hydromorphone Other (See Comments) Low 06/25/2021 Reports forehead feeling hot (afebrile), with rash and peeling few days later Medications Medication Sig Dispensed Refills Start Date End Date Status LORazepam (ATIVAN) 1 MG tablet Take 1 tablet (1 mg total) by mouth 2 (two) times a day as needed for anxiety. 10 tablet 06/05/2021 Active Additional Information Patient not taking.Reported on 07/25/2021 acetaminophen (TYLENOL) 325 mg tablet Take 1-2 tablets (325-650 mg total) by mouth every 6 (six) hours as needed for mild pain. 0 06/25/2021 Active Additional Information Patient not taking.Reported on 07/25/2021 lidocaine 4 % Place 2 patches onto the skin daily. 5 patch 06/25/2021 Active Additional Information Patient not taking.Reported on 07/25/2021 melatonin 5 mg Tab Take 1 tablet (5 mg total) by mouth nightly at bedtime. 06/25/2021 Active Additional Information Patient not taking.Reported on 07/25/2021 metoprolol succinate (TOPROL-XL) 25 MG 24 hr tablet Take 0.5 tablets (12.5 mg total) by mouth 2 (two) times a day. 30 tablet 2 06/25/2021 Active oxyCODONE 5 MG immediate release tablet Take 0.5-1 tablets (2.5-5 mg total) by mouth every 6 (six) hours as needed for moderate pain. Partial fill ok 21 tablet 06/25/2021 Active Additional Information Patient not taking.Reported on 07/25/2021 warfarin (COUMADIN) 1 MG tablet Take 1-10 tablets per day as instructed by your PCP. Your dose will vary based on INR. 200 tablet 1 06/26/2021 Active Active Problems Problem Noted Date Diagnosed Date Chronic thromboembolic pulmonary hypertension Overview (06/25/2021): S/p pulmonary thromboendarterectomy with deep hypothermic circulatory arrest and closure of patent foramen ovale, with Dr Foster and Dr Griffin on 06/18/21. A-fib 12/09/2020 CTEPH (chronic thromboembolic pulmonary hyperten pedro pablo) 09/25/2020 Pulmonary nodules 09/25/2020 Hepatic steatosis 09/25/2020 Thyroid nodule 12/16/2017 Overview (02/15/2021): Needs thyroid US Essential hypertension 10/13/2017 Overview (02/15/2021): Stage 1, recommend tril of low salt diet and exercise Social History Tobacco Use Types Packs/Day Years Used Date Smoking Tobacco: Never Smokeless Tobacco: Never Alcohol Use Standard Drinks/Week Comments Not Currently 0 (1 standard drink = 0.6 oz pur e alcohol) social Education Answer Date Recorded Are you interested in more education? Not on nayely e 11/15/2022 Are you concerned about learning? Not on file 11/15/2022 No 11/15/2022 No 11/15/2022 Digital Access Answer Date Recorded No 12/14/2022 No 12/14/2022 No 12/14/2022 Reliable internet access at home? Not on file 12/14/2022 Device with a working camera? Not on file Sex and Gender Information Value Date Recorded Sex Assigned at Male 06/27/2020 12:30 PM EST Gender Identity Male 06/27/2020 12:30 PM EST Sexual Orientation Straight 06/27/2020 12 :30 PM EST Last Filed Vital Signs Vital Sign Reading Time Taken Comments Blood Pressure 123/86 07/25/2021 10:45 AM EST Pulse 86 07/25/2021 10:45 AM EST Temperature 36.2 ??C (97.1 ??F) 07/25/2021 10:[address] Respiratory Rate 16 07/25/2021 10:45 AM EST Oxygen Saturation 97% 07/25/2021 10:45 AM EST Inhaled Oxygen Concentration 0% 06/18/2021 9 :39 PM EST Weight 95.3 kg (210 lb) 07/25/2021 10:45 AM EST Height 188 cm (6' 2 ) 07/25/2021 10:45 AM EST Body Mass Index 26.96 07/25/2021 10:45 AM EST Plan of Treatment Health Maintenance Due Date Last Done Comments Adult Td,Tdap Booster 1980 BLOOD PRESSURE 1980 LIPID PANEL 1980 DEPRESSION SCREENING 1992 HEPATITIS B SCREENING 1998 HEPATITIS C SCREENING 1998 HIV ONE-TIME SCREENING (18-6 5 YEARS) 1998 HEPATITIS B VACCINES (1 of 3 - 19+ 3-dose series) 1999 INFLUENZA VACCINE (#1) 2024 05/02/2021 COVID-19 VACCINE (2023-2 5 season) 2024 05/24/2021, 09/25/2020, 09/03/2020 SMOKING STATUS SCREENING (On ce After 26 Yrs) Completed 06/18/2021 HEPATITIS A VACCINES Aged Out No long er eligible based on patient's age to complete this topic HIB VACCINES Aged Out No longer eligi ble based on patient's age to complete this topic MENINGOCOCCAL VACCINES (ACWY) Aged Out No longer eligible based on patient's age to complete this topic PNEUMOCOCCAL VACCINES (0-49 years) Aged Out No longer eligible b ased on patient's age to complete this topic Medical Devices Not on file Advance Directives Documents on File Type Date Recorded Patient Fur Examiner Expl anation Healthcare Proxy 06/05/2021 2:19 PM * Full Code (Latest Code Status on File) Date Activated Date Inactivated Comments 06/18/2021 2:09 PM Question Answer Comments Code Status Confirmed With: Other (specify below ) Code Status Communicated To: Other (specify belo w) Code Discussion Comments: discussed by p re-operative team; will be confirmed when patient extubated in ICU Care Teams Weapons Specialist Relationship Specialty Start Date End Date Shannan Medrano MD [address] [place] [address] PCP - General Internal Medicine 06/01/21 Elfego Morales MD [address] [place] [address] [place] [address] Pulmonary Disease 08/14/20 Jacobo Sherwood MD [address] [place] [address] MARIA [email or web address] Pulmonary Disease 07/25/21 Javed Griffin MD [address] [place] [address] DARLENE@[email or web address] Cardiothoracic Surgery 07/25/21 Additional Source Comments The information contained in this document represents components of the legal health record. It is not the complete legal health record.[facility]
[2024-09-21 09:59] LABS: MANUAL DIFF FLAG NO
[2024-09-21 10:03] LABS: Basophils Absolute Auto 0.1 X10*3/uL (0.0-0.2); Eosinophils Absolute Auto 0.3 X10*3/uL (0.0-0.4); Eosinophils Percent Auto 4.7 % (0-4); Hemoglobin 15.8 g/dl (14.0-18.0); Imm Gran Abs Auto 0.03 X10*3/uL (0.00-0.03); Imm Gran Pct Auto 0.5 % (0.0-0.4); Lymphocytes Absolute Auto 2.4 X10*3/uL (1.2-4.9); Lymphocytes Percent Auto 39.2 % (20-40); Mean Corpuscular HGB Conc 34.3 g/dl (31.0-36.0); Mean Corpuscular Hemoglobin 30.6 pg (27.0-33.0); Mean Corpuscular Volume 89.1 fL (80.0-98.0); Monocytes Absolute Auto 0.5 X10*3/uL (0.1-1.2); Monocytes Percent Auto 8.4 % (2-11); Neutrophils Absolute Auto 2.9 x10*3/uL (2.0-8.3); Neutrophils Percent Auto 46.2 % (45-73); Platelet Count 259 X10*3/uL (160-400); Red Blood Count 5.16 X10*6/uL (4.60-5.80); Red Cell Distribution Width 11.7 % (11.0-16.0); White Blood Count 6.2 X10*3/uL (4.8-10.8)
[2024-09-21 10:20] LABS: Alanine Aminotransferase 38 U/L (0-40); Albumin Level 4.2 g/dL (3.5-5.0); Alkaline Phosphatase 58 U/L (39-117); Anion Gap 11 (12-20); Aspartate Amino Transferase 26 U/L (5-37); Bilirubin Total 0.5 mg/dL (0.0-1.0); Blood Urea Nitrogen 15 mg/dL (9-16); Calcium 9.1 mg/dL (8.4-10.2); Carbon Dioxide 24 mmol/L (22-29); Chloride 109 mmol/L (96-108); Cholesterol 208 mg/dL (<200); Estimated Glomerular Filt Rate > 60; Glucose Fasting 106 mg/dL (60-99); HDL Cholesterol 40 mg/dL (>40); LDL Cholesterol Calculated 126 mg/dL (<100); Potassium 4.3 mmol/L (3.3-5.1); Sodium 140 mmol/L (135-145); Total Protein 7.5 g/dL (6.5-8.0); Triglycerides 213 mg/dL (<150)
== END 2024-09-21 07:16 | disposition home or self-care (01) ==
LOC: HO.HMGCLDS 07:15
PROVIDERS: PCP Internal Medicine; Visit Provider Internal Medicine
DX: Z00.00 Encounter for general adult medical examination without abnormal findings (principal); I26.09 Other pulmonary embolism with acute cor pulmonale
CPT/HCPCS: 36415; 80053; 80061; 85025

== ENCOUNTER 2024-09-23 07:54 | Outpatient (AMB) | payer OTHER, SELFPAY ==
--- OUTSIDE RECORDS SUMMARY | 2024-09-23 07:58 | XMS_ITS | Encounter Summary ---
Author Organization [facility] Address [address] [place] [address] Phone Care Team Providers Care Energy Systems Engineer Name Role Phone Elfego Morales MD Unavailable [phone] Elfego Morales MD Primary Care Provider Shannan Medrano MD Primary Care Provider Jacobo Sherwood MD Unavailable [phone] Javed Griffin MD Unavailable Encounter Details Date Type Department Care Team (Late st Contact Info) Description 09/22/2020 Telephone [facility] Nuclear Medicine, Mobile 2 55 [facility] 2 [place] [address] Jacobo Sherwood MD [facility] [place] [address] MARIA GUADALUPE@[email or web address] Social History Tobacco Use Types [...] on filedocumented in this encounter Care Teams Energy Systems Engineer Relationship Specialty Start Date End Date Elfego Morales MD [address] [place] [address] PCP - General Pulmonary Disease 12/04/20 05/31/21 Shannan Medrano MD [address] [place] [address] PCP - General Internal Medicine 06/01/21 Elfego Morales MD [address] [place] [address] Pulmonary Disease 08/14/20 Jacobo Sherwood MD [address] [place] [address] MARIA [email or web address] Pulmonary Disease 07/25/21 Javed Griffin MD [address] [place] [address] [email or web address] Cardiothoracic Surgery 07/25/21 documented as of this encounter Additional Source Comments The information contained in this document represents components of the legal health record. It is not the complete legal health record.[facility]
--- OUTSIDE RECORDS SUMMARY | 2024-09-23 07:58 | XMS_ITS | Encounter Summary ---
Author Organization [facility] Address [address] [place] [address] Phone Care Team Providers Care Property Preservation Specialist Name Role Phone Elfego Morales MD Unavailable Shannan Medrano MD Primary Care Provider [phone] Jacobo Sherwood MD Unavailable Javed Griffin MD Unavailable Encounter Details Date Type Department Care Team (Late st Contact Info) Description 11/28/2022 Procedure Pass [facility] [address] [place] [address] Social History Tobacco Use Types Packs/Day Years [...] on filedocumented in this encounter Care Teams Property Preservation Specialist Relationship Specialty Start Date End Date Shannan Medrano MD [address] [place], [place] PCP - General Internal Medicine 06/01/21 Elfego Morales MD [address] [place] [address] [place] [address] Pulmonary Disease 08/14/20 Jacobo Sherwood MD [address] [place] [address] MARIA [email or web address] Pulmonary Disease 07/25/21 Javed Griffin MD [address] [place] [address] DARLENE@[email or web address] Cardiothoracic Surgery 07/25/21 documented as of this encounter Additional Source Comments The information contained in this document represents components of the legal health record. It is not the complete legal health record.[facility]
--- OUTSIDE RECORDS SUMMARY | 2024-09-23 07:58 | XMS_ITS | Encounter Summary ---
Author Organization [facility] Address [address] [place] [address] Phone Care Team Providers Care Mechanical Equipment Test Engineer Name Role Phone Elfego Morales MD Unavailable Elfego Morales MD Primary Care Provider Shannan Medrano MD Primary Care Provider Jacobo Sherwood MD Unavailable [phone] Javed Griffin MD Unavailable Encounter Details Date Type Department Care Team (Late st Contact Info) Description 12/07/2020 Procedure Pass [facility] Cardiac Customs Compliance Analyst [address] [place] [address] Social History Tobacco Use Types [...] on filedocumented in this encounter Care Teams Mechanical Equipment Test Engineer Relationship Specialty Start Date End Date Elfego Morales MD [address] [place] [address] PCP - General Pulmonary Disease 12/04/20 05/31/21 Shannan Medrano MD [address] [place] [address] PCP - General Internal Medicine 06/01/21 Elfego Morales MD [address] [place] [address] [place] [address] Pulmonary Disease 08/14/20 Jacobo Sherwood MD [address] [place] [address] MARIA [email or web address] Pulmonary Disease 07/25/21 Javed Griffin MD [address] [place] [address] DARLENE@[email or web address] Cardiothoracic Surgery 07/25/21 documented as of this encounter Additional Source Comments The information contained in this document represents components of the legal health record. It is not the complete legal health record.[facility]
--- OUTSIDE RECORDS SUMMARY | 2024-09-23 07:58 | XMS_ITS | Encounter Summary ---
Author Organization [facility] Address [address] [place] [address] Phone Care Team Providers Care Park Keeper Name Role Phone Elfego Morales MD Unavailable Shannan Medrano MD Primary Care Provider [phone] Jacobo Sherwood MD Unavailable [phone] Javed Griffin MD Unavailable Encounter Details Date Type Department Care Team (Late st Contact Info) Description 07/25/2021 Procedure Pass [facility] [address] [place] [address] Social History Tobacco Use Types Packs/Day Years [...] on filedocumented in this encounter Care Teams Park Keeper Relationship Specialty Start Date End Date Shannan Medrano MD [facility] [place] [address] PCP - General Internal Medicine 06/01/21 Elfego Morales MD [address] [place] [address] Pulmonary Disease 08/14/20 Jacobo Sherwood MD [address] [place] [address] MARIA [email or web address] Pulmonary Disease 07/25/21 Javed Griffin MD [address] [place] [address] DARLENE@[email or web address] Cardiothoracic Surgery 07/25/21 documented as of this encounter Additional Source Comments The information contained in this document represents components of the legal health record. It is not the complete legal health record.[facility]
--- OUTSIDE RECORDS SUMMARY | 2024-09-23 07:58 | XMS_ITS | Encounter Summary ---
Author Organization [facility] Address [address] [facility] [address] [place] [address] Phone Care Team Providers Care Rod Puller And Coiler Name Role Phone Elfego Morales MD Unavailable Elfego Morales MD Primary Care Provider Shannan Medrano MD Primary Care Provider Jacobo Sherwood MD Unavailable [phone] Javed Griffin MD Unavailable Encounter Details Date Type Department Care Team (Late st Contact Info) Description 03/06/2021 Procedure Pass [facility] Cardiac US [address] [place] [address] Social History Tobacco Use Types Packs/Day Years [...] on filedocumented in this encounter Care Teams Rod Puller And Coiler Relationship Specialty Start Date End Date Elfego Morales MD [address] [place] [address] [place] [address] PCP - General Pulmonary Disease 12/04/20 05/31/21 Shannan Medrano MD [address] [place] [address] PCP - General Internal Medicine 06/01/21 Elfego Morales MD [address] [place] [address] Pulmonary Disease 08/14/20 Jacobo Sherwood MD [address] [place] [address] MARIA GUADALUPE@[email or web address] Pulmonary Disease 07/25/21 Javed Griffin MD [address] [place] [address] DARLENE@[email or web address] Cardiothoracic Surgery 07/25/21 documented as of this encounter Additional Source Comments The information contained in this document represents components of the legal health record. It is not the complete legal health record.[facility]
--- OUTSIDE RECORDS SUMMARY | 2024-09-23 07:58 | XMS_ITS | Encounter Summary ---
Author Organization [facility] Address [address] [place] [address] Phone Care Team Providers Care Wellness Coordinator Name Role Phone Elfego Morales MD Unavailable Shannan Medrano MD Primary Care Provider Jacobo Sherwood MD Unavailable [phone] Javed Griffin MD Unavailable Encounter Details Date Type Department Care Team (Late st Contact Info) Description 06/18/2021 Procedure Pass [facility] [address] [place] [phone] Social History Tobacco Use Types Packs/Day Years [...] on filedocumented in this encounter Care Teams Wellness Coordinator Relationship Specialty Start Date End Date Shannan Medrano MD [address] [place] [address] PCP - General Internal Medicine 06/01/21 Elfego Morales MD [address] [place] [address] Pulmonary Disease 08/14/20 Jacobo Sherwood MD [address] [place] [address] MARIA [email or web address] Pulmonary Disease 07/25/21 Javed Griffin MD [address] [place] [address] DARLENE@[email or web address] Cardiothoracic Surgery 07/25/21 documented as of this encounter Additional Source Comments The information contained in this document represents components of the legal health record. It is not the complete legal health record.[facility]
--- OUTSIDE RECORDS SUMMARY | 2024-09-23 07:59 | XMS_ITS | Encounter Summary ---
Author Organization [facility] Address [address] [place] [address] Phone Care Team Providers Care Furnace Combustion Analyst Name Role Phone Elfego Morales MD Unavailable [phone] Shannan Medrano MD Primary Care Provider [phone] Jacobo Sherwood MD Unavailable [phone] Javed Griffin MD Unavailable Encounter Details Date Type Department Care Team (Late st Contact Info) Description 07/14/[address] [facility] Cardiac Director Sanitation [employer] [address] [place] [address] Social History Tobacco Use Types [...] on filedocumented in this encounter Care Teams Furnace Combustion Analyst Relationship Specialty Start Date End Date Shannan Medrano MD [address] [place] [address] PCP - General Internal Medicine 06/01/21 Elfego Morales MD [address] [place] [address] Pulmonary Disease 08/14/20 Jacobo Sherwood MD [address] [place] [address] MARIA GUADALUPE@[email or web address] Pulmonary Disease 07/25/21 Javed Griffin MD [address] [place] [address] DARLENE@[email or web address] Cardiothoracic Surgery 07/25/21 documented as of this encounter Additional Source Comments The information contained in this document represents components of the legal health record. It is not the complete legal health record.[facility]
--- OUTSIDE RECORDS SUMMARY | 2024-09-23 07:59 | XMS_ITS | Clinical Summary ---
Author Organization [facility] Address [address] [place] [address] Phone Care Team Providers Care Financial Sales Assistant Name Role Phone Elfego Morales MD Unavailable Shannan Medrano MD Primary Care Provider Jacobo Sherwood MD Unavailable [phone] Javed Griffin MD Unavailable Allergies Active Allergy Reactions Criticality Noted Date [...] INFLUENZA VACCINE (#1) 2024 05/02/2021 COVID-19 VACCINE ( - 2023-2 5 season) 2024 05/24/2021, 09/25/2020, 09/03/2020 SMOKING [...] Medical Devices Not on file Advance Directives For more information, please contact: [phone] (9AM - 5PM [facility], Friday-Friday) Documents on File Type Date Recorded Patient Chick Sexer Expl anation Healthcare Proxy 06/05/2021 2:19 PM * Full Code (Latest Code Status on File) Date Activated Date Inactivated Comments 06/18/2021 2:09 PM Question Answer Comments Code Status Confirmed With: Other (specify below ) Code Status Communicated To: Other (specify belo w) Code Discussion Comments: discussed by p re-operative team; will be confirmed when patient extubated in ICU Care Teams Financial Sales Assistant Relationship Specialty Start Date End Date Shannan Medrano MD [address] [place], [place] PCP - General Internal Medicine 06/01/21 Elfego Morales MD [facility] Internal [place], [place] Pulmonary Disease 08/14/20 Jacobo Sherwood MD [address] [place] [address] MARIA GUADALUPE@[email or web address] Pulmonary Disease 07/25/21 Javed Griffin MD [address] [place] [address] [email or web address] Cardiothoracic Surgery 07/25/21 Additional Source Comments The information contained in this document represents components of the legal health record. It is not the complete legal health record.[facility]
--- OUTSIDE RECORDS SUMMARY | 2024-09-23 07:59 | XMS_ITS | Encounter Summary ---
Author Organization [facility] Address [address] [place] [address] Phone Care Team Providers Care Patient Day Coordinator Name Role Phone Elfego Morales MD Unavailable Shannan Medrano MD Primary Care Provider [phone] Jacobo Sherwood MD Unavailable [phone] Javed Griffin MD Unavailable Encounter Details Date Type Department Care Team (Late st Contact Info) Description 07/14/2021 Procedure Pass [facility] Cardiac Tool Room Lathe Operator [address] [place] [address] Social History Tobacco Use Types [...] on filedocumented in this encounter Care Teams Patient Day Coordinator Relationship Specialty Start Date End Date Shannan Medrano MD [address] [place] [address] PCP - General Internal Medicine 06/01/21 Elfego Morales MD [address] [place] [address] Pulmonary Disease 08/14/20 Jacobo Sherwood MD [address] [place] [address] MARIA GUADALUPE@[email or web address] Pulmonary Disease 07/25/21 Javed Griffin MD [address] [place] [address] DARLENE@[email or web address] Cardiothoracic Surgery 07/25/21 documented as of this encounter Additional Source Comments The information contained in this document represents components of the legal health record. It is not the complete legal health record.[facility]
--- OUTSIDE RECORDS SUMMARY | 2024-09-23 07:59 | XMS_ITS | Encounter Summary ---
Author Organization [facility] Address [address] [place] [address] Phone Care Team Providers Care Manager Of Recruiting Name Role Phone Elfego Morales MD Unavailable Shannan Medrano MD Primary Care Provider Jacobo Sherwood MD Unavailable [phone] Javed Griffin MD Unavailable [phone] Encounter Details Date Type Department Care Team (Late st Contact Info) Description 06/18/2021 Procedure Pass [facility] Cardiac US [address] [place] [address] Social History Tobacco Use Types Packs/Day Years [...] on filedocumented in this encounter Care Teams Manager Of Recruiting Relationship Specialty Start Date End Date Shannan Medrano MD [facility] [place] [address] PCP - General Internal Medicine 06/01/21 Elfego Morales MD [address] [place] [address] Pulmonary Disease 08/14/20 Jacobo Sherwood MD [address] [place] [address] MARIA GUADALUPE@[email or web address] Pulmonary Disease 07/25/21 Javed Griffin MD [address] [place] [address] DARLENE@[email or web address] Cardiothoracic Surgery 07/25/21 documented as of this encounter Additional Source Comments The information contained in this document represents components of the legal health record. It is not the complete legal health record.[facility]
--- OUTSIDE RECORDS SUMMARY | 2024-09-23 07:59 | XMS_ITS | Encounter Summary ---
Author Organization [facility] Address [address] [place] [address] Phone Care Team Providers Care Marine Diesel Technician Name Role Phone Elfego Morales MD Unavailable [phone] Shannan Medrano MD Primary Care Provider Jacobo Sherwood MD Unavailable [phone] Javed Griffin MD Unavailable Encounter Details Date Type Department Care Team (Late st Contact Info) Description 06/21/2021 Procedure Pass [facility] [place] [address] [place] [address] Social History Tobacco Use Types Packs/Day Years [...] on filedocumented in this encounter Care Teams Marine Diesel Technician Relationship Specialty Start Date End Date Shannan Medrano MD [facility] [place] [address] PCP - General Internal Medicine 06/01/21 Elfego Morales MD [address] [place] [address] Pulmonary Disease 08/14/20 Jacobo Sherwood MD [address] [place] [address] MARIA GUADALUPE@[email or web address] Pulmonary Disease 07/25/21 Javed Griffin MD [address] [place] [address] DARLENE@[email or web address] Cardiothoracic Surgery 07/25/21 documented as of this encounter Additional Source Comments The information contained in this document represents components of the legal health record. It is not the complete legal health record.[facility]
[2024-09-23 08:05] LABS: ~PT, ~INR - Anti Coag Clinic 1.7 (0.9-1.1)
--- NOTE | 2024-09-23 08:11 | MHC.OFFVISCO ---
Intake Intake Visit Reasons: Anticoagulation Allergies No Known Allergies [No Known Allergies*] Allergy (Verified 09/23/24 08:01) Medication List - Last Reconciled 09/23/24 by Lissette Becker RN lisinopril 10 mg PO DAILY warfarin 5 mg See Protocol PO DAILY 90 days Nursing Note INR 1.7 out of therapeutic range 1.8-2.5 Medications and supplements reviewed Patient status: May have missed a dose Medications or supplements: no changes Diet: good Denies any signs and symptoms of bleeding or clotting or unusual bruising Bleeding, bruising, clotting discussed Nutritional guidance given: avoid greens x2 days , orange and reds help raise the INR Dose: keep same 5mg daily F/U INR Date: 1 month ? Patient verbalizing understanding of instructions given and read back. Anti-Coag Initial Assessment Social Hx Patient Tobacco Use Status: Never used Tobacco Smoking packs per day: 0 alcohol intake: current Alcohol intake frequency: holidays/special occasions only Cardiovascular Hx: HTN Lung Disease HX: Other Cancer HX: No Psych. 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
== END 2024-09-23 08:17 | disposition home or self-care (01) ==
LOC: HO.ACS 07:54
PROVIDERS: PCP Internal Medicine; Visit Provider Internal Medicine
DX: Z79.01 Long term (current) use of anticoagulants (principal)

== ENCOUNTER → 2024-09-23 07:54 | Outpatient (BNVA) | payer OTHER, SELFPAY | PROVIDERS: PCP Internal Medicine; Visit Provider Internal Medicine | DX: I74.9 Embolism and thrombosis of unspecified artery (principal); I10 Essential (primary) hypertension; Z79.899 Other long term (current) drug therapy; I26.99 Other pulmonary embolism without acute cor pulmonale; Z51.81 Encounter for therapeutic drug level monitoring; Z79.01 Long term (current) use of anticoagulants | CPT/HCPCS: 85610; 99211; 99212 ==

== ENCOUNTER 2024-09-23 12:49 | Outpatient (AMB) | payer OTHER, SELFPAY ==
[2024-09-23 13:10] VITALS: BP 120/78; PULSE 97; TEMP 36.8; O2SAT 97; BMI 28.9
--- NOTE | 2024-09-23 13:10 | A.OFFPC_ITS ---
Vital Signs 09/23/24 13:10 Height 6 ft 2 in Weight 225 lb BMI 28.9 BP 120/78 Blood Pressure Location Rt brachial Position Sitting Pulse 97 Pulse Source Pulse Oximeter Temp 98.2 F Temp Source Oral Pulse Oximetry (%) 97 Oxygen Delivery Method Room Air Intake Visit Reasons: 1m f/u Intake Note: Pt is here today for a follow up on BP. Allergies No Known Allergies [No Known Allergies*] Allergy (Verified 09/23/24 08:01) Medication List - Last Reconciled 09/23/24 by Shannan Medrano MD lisinopril 10 mg PO DAILY warfarin 5 mg See Protocol PO DAILY 90 days Tobacco use date assessed: 09/23/24 Dental Screening Dental Screen Date: 08/25/24 HPI 1m f/u HPI Details Patient presents for the follow-up on hypertension controlled on lisinopril. 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 Current occupational exposures/hazards: Yes Cognitive needs: No Hearing needs: No Vision needs: No Questionnaire Thrive Questionnaire Date Thrive assessed: 08/25/24 I am a: Patient What is your living situation today?: I have a steady place to live Within the past 12 months, did the food you bought not last and you didn't have the money to get more?: Never true Within the past 12 months, did you worry whether your food would run out before you got money to buy more?: Never true Do you have trouble paying for medicines?: No Do you have trouble getting transportation to medical appointments?: No Do you have trouble paying your heating and electricity bill?: No Do you have trouble taking care of your child, family member or friend?: No Do you have trouble with day-to-day activities such as bathing, preparing meals, shopping, managing finances, etc.?: No Are you currently unemployed and looking for a job?: No Are you interested in more education?: No Please select the resources that you would like help with: None Currently or been in a relationship where the following occur: No concerns reported THRIVE Score: 0 MOISÉS-7 AMB Questionnaire MOISÉS-7 Date MOISÉS - 7 assessed: 08/25/24 Source: Developed by Drs. Jimmy Johnson, Lizbeth Snyder, Rafat Garza and colleagues, with an educational liam from [employer]. Physical exam (Primary Care) Vital Signs: Last Vital Signs Temp 98.2 F 09/23/24 13:10 Pulse 97 09/23/24 13:10 Pulse Ox 97 09/23/24 13:10 Oxygen Delivery Method Room Air 09/23/24 13:10 BMI result Body Mass Index 28.9 Tobacco/Smoking Status: Tobacco use Status Tobacco use date assessed 09/23/24 09/23/24 13:15 Patient Tobacco Use Status Never used Tobacco 09/23/24 13:15 e-Cigarette/Vaping Use Never Used 09/23/24 13:15 Thrive Assessment: Date of Thrive Assessment Date Thrive assessed 08/25/24 09/23/24 13:15 Currently or been in a relationship where the following occur: No concerns reported Const General: no acute distress HENMT Head: Yes normal to inspection Face and sinus: Yes normal facial exam Throat: Yes posterior oropharynx normal Eyes General: appearance normal, both eyes and all related structures Neck Neck: Yes no lymphadenopathy and Yes supple Resp Effort & Inspection: normal respiratory effort Auscultation: clear to auscultation bilaterally Cardio Rhythm: regular rhythm Heart sounds: S1 normal heart sound present and S2 normal heart sound present Coding Level of Care Code Est Pt Level 3 (62169) Diagnoses Chronic thromboembolic disease I74.9 HTN (hypertension) I10 Assessment & Plan Assessment & Plan (1) Chronic thromboembolic disease: Comment: s/p Pulmonary endarterectomy, on lifetime warfarin Code(s): I74.9 - Embolism and thrombosis of unspecified artery Category: Medical Plan: Continue warfarin (2) HTN (hypertension): Code(s): I10 - Essential (primary) hypertension Category: Medical Plan: Continue lisinopril regular exercise low-sodium diet follow-up in 4 months
--- OUTSIDE RECORDS SUMMARY | 2024-09-23 15:29 | XMS_ITS | Encounter Summary ---
Author Organization [facility] Address [address] [place] [address] Phone Care Team Providers Care Area Field Person Name Role Phone Elfego Morales MD Unavailable Shannan Medrano MD Primary Care Provider Jacobo Sherwood MD Unavailable [phone] Javed Griffin MD Unavailable [phone] Encounter Details Date Type Department Care Team (Late st Contact Info) Description 07/25/2021 Procedure Pass [facility] [address] [place] [address] Social History Tobacco Use Types Packs/Day Years [...] on filedocumented in this encounter Care Teams Area Field Person Relationship Specialty Start Date End Date Shannan Medrano MD [facility] [place] [address] PCP - General Internal Medicine 06/01/21 Elfego Morales MD [address] [place] [address] Pulmonary Disease 08/14/20 Jacobo Sherwood MD [address] [place] [address] MARIA [email or web address] Pulmonary Disease 07/25/21 Javed Griffin MD [address] [place] [address] DARLENE@[email or web address] Cardiothoracic Surgery 07/25/21 documented as of this encounter Additional Source Comments The information contained in this document represents components of the legal health record. It is not the complete legal health record.[facility]
--- OUTSIDE RECORDS SUMMARY | 2024-09-23 15:29 | XMS_ITS | Encounter Summary ---
Author Organization [facility] Address [address] [place] [address] Phone Care Team Providers Care Public Health Sanitarian Name Role Phone Elfego Morales MD Unavailable [phone] Elfego Morales MD Primary Care Provider Shannan Medrano MD Primary Care Provider Jacobo Sherwood MD Unavailable [phone] Javed Griffin MD Unavailable Encounter Details Date Type Department Care Team (Late st Contact Info) Description 03/06/2021 Procedure Pass [facility] Card[place] US [address] [place] [address] Social History Tobacco Use Types Packs/Day Years [...] on filedocumented in this encounter Care Teams Public Health Sanitarian Relationship Specialty Start Date End Date Elfego Morales MD [address] [place] [address] [place] [address] PCP - General Pulmonary Disease 12/04/20 05/31/21 Shannan Medrano MD [address] [place] [address] PCP - General Internal Medicine 06/01/21 Elfego Morales MD [address] [place] [address] Pulmonary Disease 08/14/20 Jacobo Sherwood MD [address] [place] [address] MARIA [email or web address] Pulmonary Disease 07/25/21 Javed Griffin MD [address] [place] [address] DARLENE@[email or web address] Cardiothoracic Surgery 07/25/21 documented as of this encounter Additional Source Comments The information contained in this document represents components of the legal health record. It is not the complete legal health record.[facility]
--- OUTSIDE RECORDS SUMMARY | 2024-09-23 15:29 | XMS_ITS | Encounter Summary ---
Author Organization [facility] Address [address] [place] [address] Phone Care Team Providers Care Financial Engineer Name Role Phone Elfego Morales MD Unavailable [phone] Shannan Medrano MD Primary Care Provider Jacobo Sherwood MD Unavailable [phone] Javed Griffin MD Unavailable Encounter Details Date Type Department Care Team (Late st Contact Info) Description 07/14/2021 Procedure Pass [facility] Cardiac Hospital Mortician [address] [place] [address] Social History Tobacco Use Types [...] on filedocumented in this encounter Care Teams Financial Engineer Relationship Specialty Start Date End Date Shannan Medrano MD [address] [place] [address] PCP - General Internal Medicine 06/01/21 Elfego Morales MD [address] [place] [address] Pulmonary Disease 08/14/20 Jacobo Sherwood MD [address] [place] [address] MARIA [email or web address] Pulmonary Disease 07/25/21 Javed Griffin MD [address] [place] [address] DARLENE@[email or web address] Cardiothoracic Surgery 07/25/21 documented as of this encounter Additional Source Comments The information contained in this document represents components of the legal health record. It is not the complete legal health record.[facility]
--- OUTSIDE RECORDS SUMMARY | 2024-09-23 15:29 | XMS_ITS | Encounter Summary ---
Author Organization [facility] Address [address] [place] [address] Phone Care Team Providers Care Outsole Scheduler Name Role Phone Elfego Morales MD Unavailable Shannan Medrano MD Primary Care Provider [phone] Jacobo Sherwood MD Unavailable [phone] Javed Griffin MD Unavailable Encounter Details Date Type Department Care Team (Late st Contact Info) Description 06/18/2021 Procedure Pass [facility] PERIOPERATIVE DEPT [address] [place] [phone] Social History Tobacco Use Types Packs/Day Years [...] on filedocumented in this encounter Care Teams Outsole Scheduler Relationship Specialty Start Date End Date Shannan Medrano MD [address] [place] [address] PCP - General Internal Medicine 06/01/21 Elfego Morales MD [address] [place] [address] Pulmonary Disease 08/14/20 Jacobo Sherwood MD [address] [place] [address] MARIA GUADALUPE@[email or web address] Pulmonary Disease 07/25/21 Javed Griffin MD [address] [place] [address] DARLENE@[email or web address] Cardiothoracic Surgery 07/25/21 documented as of this encounter Additional Source Comments The information contained in this document represents components of the legal health record. It is not the complete legal health record.[facility]
--- OUTSIDE RECORDS SUMMARY | 2024-09-23 15:29 | XMS_ITS | Encounter Summary ---
Author Organization [facility] Address [address] [place] [address] Phone Care Team Providers Care Web Applications Administrator Name Role Phone Elfego Morales MD Unavailable Elfego Morales MD Primary Care Provider Shannan Medrano MD Primary Care Provider Jacobo Sherwood MD Unavailable [phone] Javed Griffin MD Unavailable Encounter Details Date Type Department Care Team (Late st Contact Info) Description 09/22/2020 Telephone [facility] [place], [place] [address] [facility] 2 [place] [address] Jacobo Sherwood MD 55 [facility] [place] [address] MARIA [email or web address] Social History Tobacco Use Types Packs/Day [...] on filedocumented in this encounter Care Teams Web Applications Administrator Relationship Specialty Start Date End Date Elfego Morales MD [address] [place] [address] PCP - General Pulmonary Disease 12/04/20 05/31/21 Shannan Medrano MD [address] [place] [address] PCP - General Internal Medicine 06/01/21 Elfego Morales MD [address] [place] [address] Pulmonary Disease 08/14/20 Jacobo Sherwood MD [address] [place] [address] MARIA [email or web address] Pulmonary Disease 07/25/21 Javed Griffin MD [address] [place] [address] DARLENE@[email or web address] Cardiothoracic Surgery 07/25/21 documented as of this encounter Additional Source Comments The information contained in this document represents components of the legal health record. It is not the complete legal health record.[facility]
--- OUTSIDE RECORDS SUMMARY | 2024-09-23 15:29 | XMS_ITS | Clinical Summary ---
Author Organization [facility] Address [address] [place] [address] Phone Care Team Providers Care Centrifugal Drier Operator Name Role Phone Elfego Morales MD Unavailable Shannan Medrano MD Primary Care Provider [phone] Jacobo Sherwood MD Unavailable [phone] Javed Griffin MD Unavailable Allergies Active Allergy [...] LIPID PANEL 1980 DEPRESSION SCREENING 1992 HEPATITIS C SCREENING 1998 HIV ONE-TIME SCREENING (18-6 5 YEARS) 1998 INFLUENZA VACCINE (#1) 2024 05/02/2021 COVID-19 VACCINE [...] Advance Directives For more information, please contact: [phone] (9AM - 5PM [facility], Friday-Friday) Documents on File Type Date Recorded Patient Lecturer In Marketing Expl anation Healthcare Proxy 06/05/2021 2:19 PM * Full Code (Latest Code Status on File) Date Activated Date Inactivated Comments 06/18/2021 2:09 PM Question Answer Comments Code Status Confirmed With: Other (specify below ) Code Status Communicated To: Other (specify belo w) Code Discussion Comments: discussed by p re-operative team; will be confirmed when patient extubated in ICU Care Teams Centrifugal Drier Operator Relationship Specialty Start Date End Date Shannan Medrano MD [address] [place] [address] PCP - General Internal Medicine 06/01/21 Elfego Morales MD [address] [facility] [place] [address] Pulmonary Disease 08/14/20 Jacobo Sherwood MD [address] [place] [address] MARIA [email or web address] Pulmonary Disease 07/25/21 Javed Griffin MD [address] [place] [address] DARLENE@[email or web address] Cardiothoracic Surgery 07/25/21 Additional Source Comments The information contained in this document represents components of the legal health record. It is not the complete legal health record.[facility]
--- OUTSIDE RECORDS SUMMARY | 2024-09-23 15:29 | XMS_ITS | Encounter Summary ---
Author Organization [facility] Address [address] [place] [address] Phone Care Team Providers Care Rail Doweling Machine Operator Name Role Phone Elfego Morales MD Unavailable Shannan Medrano MD Primary Care Provider Jacobo Sherwood MD Unavailable Javed Griffin MD Unavailable Encounter Details Date Type Department Care Team (Late st Contact Info) Description 11/28/2022 Procedure Pass [facility] [address] [place] [address] Social History Tobacco Use Types Packs/Day Years [...] on filedocumented in this encounter Care Teams Rail Doweling Machine Operator Relationship Specialty Start Date End Date Shannan Medrano MD [address] [place], [place] PCP - General Internal Medicine 06/01/21 Elfego Morales MD [address] [place] [address] [place] [address] Pulmonary Disease 08/14/20 Jacobo Sherwood MD [address] [place] [address] MARIA GUADALUPE@[email or web address] Pulmonary Disease 07/25/21 Javed Griffin MD [address] [place] [address] DARLENE@[email or web address] Cardiothoracic Surgery 07/25/21 documented as of this encounter Additional Source Comments The information contained in this document represents components of the legal health record. It is not the complete legal health record.[facility]
--- OUTSIDE RECORDS SUMMARY | 2024-09-23 15:29 | XMS_ITS | Encounter Summary ---
Author Organization [facility] Address [address] [place] [address] Phone Care Team Providers Care Rn Hospital Name Role Phone Elfego Morales MD Unavailable Elfego Morales MD Primary Care Provider Shannan Medrano MD Primary Care Provider Jacobo Sherwood MD Unavailable [phone] Javed Griffin MD Unavailable Encounter Details Date Type Department Care Team (Late st Contact Info) Description 12/07/2020 Procedure Pass [facility] Cardiac Dean Of Education [address] [place] [address] Social History Tobacco Use Types [...] on filedocumented in this encounter Care Teams Rn Hospital Relationship Specialty Start Date End Date Elfego Morales MD [address] [place] [address] PCP - General Pulmonary Disease 12/04/20 05/31/21 Shannan Medrano MD [address] [place] [address] PCP - General Internal Medicine 06/01/21 Elfego Morales MD [address] [place] [address] [place] [address] Pulmonary Disease 08/14/20 Jacobo Sherwood MD [address] [place] [address] MARIA GUADALUPE@[email or web address] Pulmonary Disease 07/25/21 Javed Griffin MD [address] [place] [address] DARLENE@[email or web address] Cardiothoracic Surgery 07/25/21 documented as of this encounter Additional Source Comments The information contained in this document represents components of the legal health record. It is not the complete legal health record.[facility]
--- OUTSIDE RECORDS SUMMARY | 2024-09-23 15:29 | XMS_ITS | Encounter Summary ---
Author Organization [facility] Address [address] [place] [address] Phone Care Team Providers Care Mergers And Acquisitions Banker Name Role Phone Elfego Morales MD Unavailable Shannan Medrano MD Primary Care Provider [phone] Jacobo Sherwood MD Unavailable [phone] Javed Griffin MD Unavailable Encounter Details Date Type Department Care Team (Late st Contact Info) Description 06/21/2021 Procedure Pass [facility] Cardiac US [address] [place] [address] Social History Tobacco Use Types Packs/Day Years [...] on filedocumented in this encounter Care Teams Mergers And Acquisitions Banker Relationship Specialty Start Date End Date Shannan Medrano MD [place] [address] PCP - General Internal Medicine 06/01/21 Elfego Morales MD [address] [place] [address] Pulmonary Disease 08/14/20 Jacobo Sherwood MD [address] [place] [address] MARIA GUADALUPE@[email or web address] Pulmonary Disease 07/25/21 Javed Griffin MD [address] [place] [address] DARLENE@[email or web address] Cardiothoracic Surgery 07/25/21 documented as of this encounter Additional Source Comments The information contained in this document represents components of the legal health record. It is not the complete legal health record.[facility]
--- OUTSIDE RECORDS SUMMARY | 2024-09-23 15:29 | XMS_ITS | Encounter Summary ---
Author Organization [facility] Address [address] [place] [address] Phone Care Team Providers Care Geological Technical Officer Name Role Phone Elfego Morales MD Unavailable [phone] Shannan Medrano MD Primary Care Provider Jacobo Sherwood MD Unavailable [phone] Javed Griffin MD Unavailable Encounter Details Date Type Department Care Team (Late st Contact Info) Description 06/18/2021 Procedure Pass [facility] Cardiac US [address] [place] [address] Social History Tobacco Use Types Packs/Day Years [...] on filedocumented in this encounter Care Teams Geological Technical Officer Relationship Specialty Start Date End Date Shannan Medrano MD [place] [address] PCP - General Internal Medicine 06/01/21 Elfego Morales MD [address] [place] [address] Pulmonary Disease 08/14/20 Jacobo Sherwood MD [address] [place] [address] MARIA GUADALUPE@[email or web address] Pulmonary Disease 07/25/21 Javed Griffin MD [address] [place] [address] DARLENE@[email or web address] Cardiothoracic Surgery 07/25/21 documented as of this encounter Additional Source Comments The information contained in this document represents components of the legal health record. It is not the complete legal health record.[facility]
--- OUTSIDE RECORDS SUMMARY | 2024-09-23 15:29 | XMS_ITS | Encounter Summary ---
Author Organization [facility] Address [address] [place] [address] Phone Care Team Providers Care Firmware Architect Name Role Phone Elfego Morales MD Unavailable Shannan Medrano MD Primary Care Provider [phone] Jacobo Sherwood MD Unavailable [phone] Javed Griffin MD Unavailable Encounter Details Date Type Department Care Team (Late st Contact Info) Description 07/14/2021 Procedure Pass [facility] [place] Senior Graphic Designer [address] [place] [address] Social History Tobacco Use Types [...] on filedocumented in this encounter Care Teams Firmware Architect Relationship Specialty Start Date End Date Shannan Medrano MD [address] [place] [address] PCP - General Internal Medicine 06/01/21 Elfego Morales MD [address] [place] [address] Pulmonary Disease 08/14/20 Jacobo Sherwood MD [address] [place] [address] MARIA GUADALUPE@[email or web address] Pulmonary Disease 07/25/21 Javed Griffin MD [address] [place] [address] DARLENE@[email or web address] Cardiothoracic Surgery 07/25/21 documented as of this encounter Additional Source Comments The information contained in this document represents components of the legal health record. It is not the complete legal health record.[facility]
== END 2024-09-23 13:39 | disposition home or self-care (01) ==
PROVIDERS: PCP Internal Medicine; Visit Provider Internal Medicine
DX: I74.9 Embolism and thrombosis of unspecified artery (principal); I10 Essential (primary) hypertension

== ENCOUNTER 2024-10-21 07:53 | Outpatient (AMB) | payer OTHER, SELFPAY ==
--- OUTSIDE RECORDS SUMMARY | 2024-10-21 07:55 | XMS_ITS | Encounter Summary ---
Author Organization [facility] Address [address] [place] [address] Phone Care Team Providers Care Discharge Specialist Name Role Phone Elfego Morales MD Unavailable Elfego Morales MD Primary Care Provider Shannan Medrano MD Primary Care Provider Jacobo Sherwood MD Unavailable [phone] Javed Griffin MD Unavailable Encounter Details Date Type Department Care Team (Late st Contact Info) Description 12/07/2020 Procedure Pass [facility] Cardiac Solution Coordinator [address] [place] [address] Social History Tobacco Use Types [...] on filedocumented in this encounter Care Teams Discharge Specialist Relationship Specialty Start Date End Date Elfego Morales MD [address] [place] [address] PCP - General Pulmonary Disease 12/04/20 05/31/21 Shannan Medrano MD [address] [place] [address] PCP - General Internal Medicine 06/01/21 Elfego Morales MD [address] [place] [address] [place] [address] Pulmonary Disease 08/14/20 Jacobo Sherwood MD [address] [place] [address] MARIA [email or web address] Pulmonary Disease 07/25/21 Javed Griffin MD [address] [place] [address] [email or web address] Cardiothoracic Surgery 07/25/21 documented as of this encounter Additional Source Comments The information contained in this document represents components of the legal health record. It is not the complete legal health record.[facility]
--- OUTSIDE RECORDS SUMMARY | 2024-10-21 07:55 | XMS_ITS | Encounter Summary ---
Author Organization [facility] Address [address] [place] [address] Care Team Providers Care Hobbies And Crafts Sales Representative Name Role Phone Chad Donnelly MD Primary Care Provider Josie vailable [facility], Pcp Primary Care Provider Unavailabl e [facility], Pcp Primary Care Provider Unavailabl e Gail Oshea MD Primary Care Provider Unavail able Gail Oshea MD Primary Care Provider Unavail able Shannan Medrano MD Primary Care Provider Unavaila ble Encounter Details Date Type Department Care Team Description 06/02/2012 Blintze Roller Report Medical Records [address] [place] [address] Kashif Lyons Social History Tobacco Use Types Packs/Day Years Used Date Smoking Tobacco: Never Alcohol Use Standard Drinks/Week Comments Yes 4.2 (1 standard drink = 0.6 oz p ure alcohol) Sex Assigned at Date Recorded Not on file documented as of this encounter Plan of Treatment Not on file documented as of this encounter Visit Diagnoses Not on filedocumented in this encounter Care Teams Hobbies And Crafts Sales Representative Relationship Specialty Start Date End Date Chad Donnelly MD PCP - General 10/25/08 07/20/14 Community, Pcp PCP - General Internal Medicine 11/20/15 10/02/17 Community, Pcp PCP - General Internal Medicine 10/03/17 10/05/17 Gali Oshea MD PCP - General Internal Medicine 10/06/17 12/15/19 Gail Oshea MD PCP - General Internal Medicine 12/16/19 06/19/20 Shannan Medrano MD PCP - General Internal Medicine 06/20/20 documented as of this encounter
--- OUTSIDE RECORDS SUMMARY | 2024-10-21 07:55 | XMS_ITS | Encounter Summary ---
Author Organization [facility] Address [address] [place] [address] Care Team Providers Care Project Technician Name Role Phone Gail Oshea MD Primary Care Provider Unavail able Shannan Medrano MD Primary Care Provider Unavaileddie lechuga Encounter Details Date Type Department Care Team Description 02/17/2020 Quality Improvement Engineer Report Medical Records [address] [place] [address] Elfego Morales MD Social History Tobacco Use Types Packs/Day Years Used Date Smoking Tobacco: Never Smokeless Tobacco: Never Alcohol Use Standard Drinks/Week Comments Yes 4.2 (1 standard drink = 0.6 oz p ure alcohol) socially Sex Assigned at Date Recorded Not on file documented as of this encounter Plan of Treatment Not on file documented as of this encounter Visit Diagnoses Not on filedocumented in this encounter Care Teams Project Technician Relationship Specialty Start Date End Date Gail Oshea MD PCP - General Internal Medicine 12/16/19 06/19/20 Shannan Medrano MD PCP - General Internal Medicine 06/20/20 documented as of this encounter
--- OUTSIDE RECORDS SUMMARY | 2024-10-21 07:55 | XMS_ITS | Encounter Summary ---
Author Organization [facility] Address [address] [place] [address] Phone Care Team Providers Care Configurator Name Role Phone Elfego Morales MD Unavailable Elfego Morales MD Primary Care Provider Shannan Medrano MD Primary Care Provider [phone] Jacobo Sherwood MD Unavailable [phone] Javed Griffin MD Unavailable Encounter Details Date Type Department Care Team (Late st Contact Info) Description 03/06/2021 Procedure Pass [facility] Cardiac US [address] [place] [address] Social History Tobacco Use Types Packs/Day Years [...] on filedocumented in this encounter Care Teams Configurator Relationship Specialty Start Date End Date Elfego Morales MD [address] [place] [address] [place] [address] PCP - General Pulmonary Disease 12/04/20 05/31/21 Shannan Medrano MD [address] [place] [address] PCP - General Internal Medicine 06/01/21 Elfego Morales MD [address] [place] [address] Pulmonary Disease 08/14/20 Jacobo Sherwood MD [address] [place] [address] MARIA [email or web address] Pulmonary Disease 07/25/21 Javed Griffin MD [address] [place] [address] DARLENE@[email or web address] Cardiothoracic Surgery 07/25/21 documented as of this encounter Additional Source Comments The information contained in this document represents components of the legal health record. It is not the complete legal health record.[facility]
--- OUTSIDE RECORDS SUMMARY | 2024-10-21 07:55 | XMS_ITS | Encounter Summary ---
Author Organization [facility] Address [address] [place] [address] Phone Care Team Providers Care X [employer] Electronics Wireman Name Role Phone Elfego Morales MD Unavailable [phone] Shannan Medrano MD Primary Care Provider [phone] Jacobo Sherwood MD Unavailable [phone] Javed Griffin MD Unavailable Encounter Details Date Type Department Care Team (Late st Contact Info) Description 07/25/2021 Procedure Pass [facility] [address] [place] [address] Social History Tobacco Use Types Packs/Day Years [...] on filedocumented in this encounter Care Teams [employer] Wireman Relationship Specialty Start Date End Date Shannan Medrano MD [place] [address] PCP - General Internal Medicine 06/01/21 Elfego Morales MD [address] [place] [address] Pulmonary Disease 08/14/20 Jacobo Sherwood MD [address] [place] [address] MARIA [email or web address] Pulmonary Disease 07/25/21 Javed Griffin MD [address] [place] [address] DARLENE@[email or web address] Cardiothoracic Surgery 07/25/21 documented as of this encounter Additional Source Comments The information contained in this document represents components of the legal health record. It is not the complete legal health record.[facility]
--- OUTSIDE RECORDS SUMMARY | 2024-10-21 07:55 | XMS_ITS | Encounter Summary ---
Author Organization [facility] Address [address] [place] [address] Phone Care Team Providers Care Technology Infusion Specialist Name Role Phone Elfego Morales MD Unavailable [phone] Shannan Medrano MD Primary Care Provider Jacobo Sherwood MD Unavailable Javed Griffin MD Unavailable Encounter Details Date Type Department Care Team (Late st Contact Info) Description 11/28/2022 Procedure Pass [facility] [address] [place] [address] Social History Tobacco Use Types Packs/Day Years [...] on filedocumented in this encounter Care Teams Technology Infusion Specialist Relationship Specialty Start Date End Date Shannan Medrano MD [address] [place], [place] PCP - General Internal Medicine 06/01/21 Elfego Morales MD [address] [place] [address] [place] [address] Pulmonary Disease 08/14/20 Jacobo Sherwood MD [address] [place] [address] MARIA [email or web address] Pulmonary Disease 07/25/21 Javed Griffin MD [address] [place] [address] DARLENE@[email or web address] Cardiothoracic Surgery 07/25/21 documented as of this encounter Additional Source Comments The information contained in this document represents components of the legal health record. It is not the complete legal health record.[facility]
--- OUTSIDE RECORDS SUMMARY | 2024-10-21 07:55 | XMS_ITS | Encounter Summary ---
Author Organization [facility] Address [address] [place] [address] Phone Care Team Providers Care Weapons And Tactics Instructor Name Role Phone Elfego Morales MD Unavailable Shannan Medrano MD Primary Care Provider [phone] Jacobo Sherwood MD Unavailable [phone] Javed Griffin MD Unavailable Encounter Details Date Type Department Care Team (Late st Contact Info) Description 06/18/2021 Procedure Pass [facility] Cardiac US [address] [place] [address] Social History Tobacco Use Types Packs/Day Years [...] on filedocumented in this encounter Care Teams Weapons And Tactics Instructor Relationship Specialty Start Date End Date Shannan Medrano MD [facility] [place] [address] PCP - General Internal Medicine 06/01/21 Elfego Morales MD [address] [place] [address] Pulmonary Disease 08/14/20 Jacobo Sherwood MD [address] [place] [address] MARIA [email or web address] Pulmonary Disease 07/25/21 Javed Griffin MD [address] [place] [address] DARLENE@[email or web address] Cardiothoracic Surgery 07/25/21 documented as of this encounter Additional Source Comments The information contained in this document represents components of the legal health record. It is not the complete legal health record.[facility]
--- OUTSIDE RECORDS SUMMARY | 2024-10-21 07:55 | XMS_ITS | Encounter Summary ---
Author Organization [facility] Address [address] [place] [address] Phone Care Team Providers Care Boom Worker Name Role Phone Elfego Morales MD Unavailable [phone] Shannan Medrano MD Primary Care Provider Jacobo Sherwood MD Unavailable [phone] Javed Griffin MD Unavailable Encounter Details Date Type Department Care Team (Late st Contact Info) Description 06/21/2021 Procedure Pass [facility] Cardiac US [address] [place] [address] Social History Tobacco Use Types Packs/Day Years [...] on filedocumented in this encounter Care Teams Boom Worker Relationship Specialty Start Date End Date Shannan Medrano MD [place] [address] PCP - General Internal Medicine 06/01/21 Elfego Morales MD [address] [place] [address] Pulmonary Disease 08/14/20 Jacobo Sherwood MD [address] [place] [address] MARIA [email or web address] Pulmonary Disease 07/25/21 Javed Griffin MD [address] [place] [address] DARLENE@[email or web address] Cardiothoracic Surgery 07/25/21 documented as of this encounter Additional Source Comments The information contained in this document represents components of the legal health record. It is not the complete legal health record.[facility]
--- OUTSIDE RECORDS SUMMARY | 2024-10-21 07:55 | XMS_ITS | Encounter Summary ---
Author Organization [facility] Address [address] [place] [address] Care Team Providers Care Nursing Home Admissions Director Name Role Phone Gail Oshea MD Primary Care Provider Unavail able Shannan Medrano MD Primary Care Provider Unavaileddie lechuga Encounter Details Date Type Department Care Team Description 01/18/[address] Report Medical Records [address] [place] [address] Elfego Morales MD Social History Tobacco Use [...] on filedocumented in this encounter Care Teams Nursing Home Admissions Director Relationship Specialty Start Date End Date Gail Oshea MD PCP - General Internal Medicine 12/16/19 06/19/20 Shannan Medrano MD PCP - General Internal Medicine 06/20/20 documented as of this encounter
--- OUTSIDE RECORDS SUMMARY | 2024-10-21 07:55 | XMS_ITS | Encounter Summary ---
Author Organization [facility] Address [address] [place] [address] Care Team Providers Care Financial Planning Assistant Name Role Phone Gail Oshea MD Primary Care Provider Unavail able Shannan Medrano MD Primary Care Provider Emily lechuga Encounter Details Date Type Department Care Team Description 03/28/2020 Orders Only Adult Medicine [address] [address] Gail Oshea MD Social History Tobacco Use Types Packs/Day [...] filedocumented in this encounter Care Teams Financial Planning Assistant Relationship Specialty Start Date End Date Gail Oshea MD PCP - General Internal Medicine 12/16/19 06/19/20 Shannan Medrano MD PCP - General Internal Medicine 06/20/20 documented as of this encounter
--- OUTSIDE RECORDS SUMMARY | 2024-10-21 07:55 | XMS_ITS | Encounter Summary ---
Author Organization [facility] Address [address] [place] [address] Phone Care Team Providers Care Gun Perforator Name Role Phone Elfego Morales MD Unavailable Shannan Medrano MD Primary Care Provider [phone] Jacobo Sherwood MD Unavailable [phone] Javed Griffin MD Unavailable Encounter Details Date Type Department Care Team (Late st Contact Info) Description 07/14/2021 Procedure Pass [facility] Cardiac Restaurant Line Server [address] [place] [address] Social History Tobacco Use Types [...] on filedocumented in this encounter Care Teams Gun Perforator Relationship Specialty Start Date End Date Shannan Medrano MD [address] [place] [address] PCP - General Internal Medicine 06/01/21 Elfego Morales MD [address] [place] [address] Pulmonary Disease 08/14/20 Jacobo Sherwood MD [address] [place] [address] MARIA GUADALUPE@[email or web address] Pulmonary Disease 07/25/21 Javed Griffin MD [address] [place] [address] DARLENE@[email or web address] Cardiothoracic Surgery 07/25/21 documented as of this encounter Additional Source Comments The information contained in this document represents components of the legal health record. It is not the complete legal health record.[facility]
--- OUTSIDE RECORDS SUMMARY | 2024-10-21 07:55 | XMS_ITS | Encounter Summary ---
Author Organization [facility] Address [address] [place] [address] Phone Care Team Providers Care Respiratory Physician Name Role Phone Elfego Morales MD Unavailable [phone] Shannan Medrano MD Primary Care Provider Jacobo Sherwood MD Unavailable [phone] Javed Griffin MD Unavailable Encounter Details Date Type Department Care Team (Late st Contact Info) Description 06/18/2021 Procedure Pass [facility] PERIOPERATIVE DEPT [address] [place] [phone] Social History Tobacco Use Types Packs/Day Years [...] on filedocumented in this encounter Care Teams Respiratory Physician Relationship Specialty Start Date End Date Shannan Medrano MD [address] [place] [address] PCP - General Internal Medicine 06/01/21 Elfego Morales MD [address] [place] [address] Pulmonary Disease 08/14/20 Jacobo Sherwood MD [address] [place] [address] MARIA GUADALUPE@[email or web address] Pulmonary Disease 07/25/21 Javed Griffin MD [address] [place] [address] DARLENE@[email or web address] Cardiothoracic Surgery 07/25/21 documented as of this encounter Additional Source Comments The information contained in this document represents components of the legal health record. It is not the complete legal health record.[facility]
--- OUTSIDE RECORDS SUMMARY | 2024-10-21 07:55 | XMS_ITS | Clinical Summary ---
Author Organization [facility] Address [address] [place] [address] Phone Care Team Providers Care Stripe Matcher Name Role Phone Elfego Morales MD Unavailable Shannan Medrano MD Primary Care Provider Jacobo Sherwood MD Unavailable [phone] Javed Griffin MD Unavailable Allergies Active Allergy [...] Advance Directives For more information, please contact: [phone] (9AM - 5PM [facility], Friday-Friday) Documents on File Type Date Recorded Patient Pasteurizing Supervisor Expl anation Healthcare Proxy 06/05/2021 2:19 PM * Full Code (Latest Code Status on File) Date Activated Date Inactivated Comments 06/18/2021 2:09 PM Question Answer Comments Code Status Confirmed With: Other (specify below ) Code Status Communicated To: Other (specify belo w) Code Discussion Comments: discussed by p re-operative team; will be confirmed when patient extubated in ICU Care Teams Stripe Matcher Relationship Specialty Start Date End Date Shannan Medrano MD [address] [place] [address] PCP - General Internal Medicine 06/01/21 Elfego Morales MD [address] [facility] [place] [address] Pulmonary Disease 08/14/20 Jacobo Sherwood MD [address] [place] [address] MARIA GUADALUPE@[email or web address] Pulmonary Disease 07/25/21 Javed Griffin MD [address] [place] [address] DARLENE@[facility] Cardiothoracic Surgery 07/25/21 Additional Source Comments The information contained in this document represents components of the legal health record. It is not the complete legal health record.[facility]
--- OUTSIDE RECORDS SUMMARY | 2024-10-21 07:55 | XMS_ITS | Encounter Summary ---
Author Organization [facility] Address [address] [place] [address] Care Team Providers Care Novelty Worker Name Role Phone Gail Oshea MD Primary Care Provider Unavail able Gail Oshea MD Primary Care Provider Unavail able Shannan Medrano MD Primary Care Provider Unavaila ble Encounter Details Date Type Department Care Team Description 03/31/2018 Telephone Pulmonology [address] [place] [address] Gomez Chang MD [address] [place] [phone] Social History Tobacco Use Types Packs/Day Years Used Date Smoking Tobacco: Never Smokeless Tobacco: Never Alcohol Use Standard Drinks/Week Comments Yes 4.2 (1 standard drink = 0.6 oz p ure alcohol) socially Sex Assigned at Date Recorded Not on file documented as of this encounter Miscellaneous Notes * Telephone Encounter - Gomez Chang MD - 03/31/2018 8:36 AM EDT I called I talked whith him. Biopsy negative for malignancy, we will keep in observation, CT will be requested in 6 months. Copy and letter sent to home documented in this encounter Plan of Treatment Not on file documented as of this encounter Visit Diagnoses Not on filedocumented in this encounter Care Teams Novelty Worker Relationship Specialty Start Date End Date Gail Oshea MD PCP - General Internal Medicine 10/06/17 12/15/19 Gail Oshea MD PCP - General Internal Medicine 12/16/19 06/19/20 Shannan Medrano MD PCP - General Internal Medicine 06/20/20 documented as of this encounter
--- OUTSIDE RECORDS SUMMARY | 2024-10-21 07:55 | XMS_ITS | Encounter Summary ---
Author Organization [facility] Address [address] [place] [address] Phone Care Team Providers Care Corn Chip Maker Name Role Phone Elfego Morales MD Unavailable Shannan Medrano MD Primary Care Provider Jacobo Sherwood MD Unavailable [phone] Javed Griffin MD Unavailable Encounter Details Date Type Department Care Team (Late st Contact Info) Description 07/14/2021 Procedure Pass [facility] Cardiac Director Law Enforcement [address] [place] [address] Social History Tobacco Use Types [...] on filedocumented in this encounter Care Teams Corn Chip Maker Relationship Specialty Start Date End Date Shannan Medrano MD [address] [place] [address] PCP - General Internal Medicine 06/01/21 Elfego Morales MD [address] [place] [address] Pulmonary Disease 08/14/20 Jacobo Sherwood MD [address] [place] [address] MARIA [email or web address] Pulmonary Disease 07/25/21 Javed Griffin MD [address] [place] [address] DARLENE@[email or web address] Cardiothoracic Surgery 07/25/21 documented as of this encounter Additional Source Comments The information contained in this document represents components of the legal health record. It is not the complete legal health record.[facility]
--- OUTSIDE RECORDS SUMMARY | 2024-10-21 07:55 | XMS_ITS | Encounter Summary ---
Author Organization [facility] Address [address] [place] [address] Phone Care Team Providers Care Bingo Usher Name Role Phone Elfego Morales MD Unavailable [phone] Elfego Morales MD Primary Care Provider Shannan Medrano MD Primary Care Provider Jacobo Sherwood MD Unavailable [phone] Javed Griffin MD Unavailable [phone] Encounter Details Date Type Department Care Team (Late st Contact Info) Description 09/22/2020 Telephone [facility] [place], [place] 2 [address] [facility] 2 [place] [address] Jacobo Sherwood MD [address] [facility] [place] [address] MARIA GUADALUPE@[email or web address] Social History Tobacco Use Types Packs/Day Years [...] on filedocumented in this encounter Care Teams Bingo Usher Relationship Specialty Start Date End Date Elfego Morales MD [address] [place] [address] PCP - General Pulmonary Disease 12/04/20 05/31/21 Shannan Medrano MD [address] [place] [address] PCP - General Internal Medicine 06/01/21 Elfego Morales MD [address] [place] [address] Pulmonary Disease 08/14/20 Jacobo Sherwood MD [address] [place] [address] MARIA GUADALUPE@[email or web address] Pulmonary Disease 07/25/21 Javed Griffin MD [address] [place] [address] DARLENE@[email or web address] Cardiothoracic Surgery 07/25/21 documented as of this encounter Additional Source Comments The information contained in this document represents components of the legal health record. It is not the complete legal health record.[facility]
[2024-10-21 08:12] LABS: Prothrombin Time Whole Bld POC 27.6 sec (11.1-13.5); ~PT, ~INR - Anti Coag Clinic 2.3 (0.9-1.1)
--- NOTE | 2024-10-21 08:16 | MHC.OFFVISCO ---
Intake Intake Visit Reasons: Anticoagulation Allergies No Known Allergies [No Known Allergies*] Allergy (Verified 10/21/24 08:05) Medication List - Last Reconciled 10/21/24 by Lissette Becker RN lisinopril 10 mg PO DAILY warfarin 5 mg See Protocol PO DAILY 90 days Nursing Note INR: 2.3 in therapeutic range Medications and supplements reviewed No changes in health, diet, medications, or supplements, Denies any signs and symptoms of bleeding or bruising or clotting. Bleeding, bruising, clotting discussed Nutritional guidance given Dose: 5MG DAILY F/U INR: 1 MONTH Patient verbalizes understanding of instructions given Anti-Coag Initial Assessment Social Hx Patient Tobacco Use Status: Never used Tobacco Smoking packs per day: 0 alcohol intake: current Alcohol intake frequency: holidays/special occasions only Cardiovascular Hx: HTN Lung Disease HX: Other Cancer HX: No Psych. Illness/Depression: No Coding Level of Care Code Est Patient Level 1 Diagnoses Current use of anticoagulant therapy Z79.01 Assessment & Plan Assessment & Plan (1) Current use of anticoagulant therapy: Code(s): Z79.01 - shelter (current) use of anticoagulants Category: Medical
== END 2024-10-21 08:18 | disposition home or self-care (01) ==
LOC: HO.ACS 07:53
PROVIDERS: PCP Internal Medicine; Visit Provider Internal Medicine Medical Oncology
DX: Z79.01 Long term (current) use of anticoagulants (principal)

== ENCOUNTER → 2024-10-21 07:53 | Outpatient (BNVA) | payer OTHER, SELFPAY | PROVIDERS: PCP Internal Medicine; Visit Provider Internal Medicine Medical Oncology | DX: I26.99 Other pulmonary embolism without acute cor pulmonale (principal); Z51.81 Encounter for therapeutic drug level monitoring; Z79.01 Long term (current) use of anticoagulants | CPT/HCPCS: 85610; 99211 ==

== ENCOUNTER 2024-11-25 08:09 | Outpatient (AMB) | payer OTHER, SELFPAY ==
--- NOTE | 2024-11-25 08:06 | MHC.OFFVISCO ---
Intake Intake Visit Reasons: Anticoagulation Allergies No Known Allergies [No Known Allergies*] Allergy (Verified 11/25/24 07:57) Medication List - Last Reconciled 11/25/24 by Licha Campo RN lisinopril 10 mg PO DAILY warfarin 5 mg See Protocol PO DAILY 90 days Nursing Note INR: 2.5 in therapeutic range of 1.8-2.5 Medications and supplements reviewed No changes in health, diet, medications, or supplements, Denies any signs and symptoms of bleeding or bruising or clotting. Bleeding, bruising, clotting discussed Nutritional guidance given to have a serving of greens today Dose: 5mg X 7 days F/U INR: 4 weeks Patient verbalizes understanding of instructions given Anti-Coag Initial Assessment Social Hx Patient Tobacco Use Status: Never used Tobacco Smoking packs per day: 0 alcohol intake: current Alcohol intake frequency: holidays/special occasions only Cardiovascular Hx: HTN Lung Disease HX: Other Cancer HX: No Psych. Illness/Depression: No Coding Level of Care Code Est Patient Level 1 Diagnoses Current use of anticoagulant therapy Z79.01 Assessment & Plan Assessment & Plan (1) Current use of anticoagulant therapy: Code(s): Z79.01 - long-term (current) use of anticoagulants Category: Medical
--- OUTSIDE RECORDS SUMMARY | 2024-11-25 08:22 | XMS_ITS | Encounter Summary ---
Author Organization [facility] Address [address] [place] [address] Phone Care Team Providers Care Associate Attorney Name Role Phone Elfego Morales MD Unavailable Shannan Medrano MD Primary Care Provider Jacobo Sherwood MD Unavailable Javed Griffin MD Unavailable Encounter Details Date Type Department Care Team (Late st Contact Info) Description 11/28/2022 Procedure Pass [facility] [address] [place] [address] Social History Tobacco Use Types Packs/Day Years [...] on filedocumented in this encounter Care Teams Associate Attorney Relationship Specialty Start Date End Date Shannan Medrano MD [address] [place], [place] PCP - General Internal Medicine 06/01/21 Elfego Morales MD [address] [place] [address] [place] [address] Pulmonary Disease 08/14/20 Jacobo Sherwood MD [address] [place] [address] MARIA [email or web address] Pulmonary Disease 07/25/21 Javed Griffin MD [address] [place] [address] DARLENE@[email or web address] Cardiothoracic Surgery 07/25/21 documented as of this encounter Additional Source Comments The information contained in this document represents components of the legal health record. It is not the complete legal health record.[facility]
--- OUTSIDE RECORDS SUMMARY | 2024-11-25 08:23 | XMS_ITS | Encounter Summary ---
Author Organization [facility] Address [address] [place] [address] Care Team Providers Care Production Honing Machine Operator Name Role Phone Shannan Medrano MD Primary Care Provider Maria Antoniaa ankush Encounter Details Date Type Department Care Team Description 10/10/2020 Communication Analyst Report Medical Records [address] [place] [address] Elfego Morales MD Social History Tobacco Use [...] on filedocumented in this encounter Care Teams Production Honing Machine Operator Relationship Specialty Start Date End Date Shannan Medrano MD PCP - General Internal Medicine 06/20/20 documented as of this encounter
--- OUTSIDE RECORDS SUMMARY | 2024-11-25 08:23 | XMS_ITS | Encounter Summary ---
Author Organization [facility] Address [address] [place] [address] Phone Care Team Providers Care Mounter Clarinets Name Role Phone Elfego Morales MD Unavailable Shannan Medrano MD Primary Care Provider [phone] Jacobo Sherwood MD Unavailable [phone] Javed Griffin MD Unavailable [phone] Encounter Details Date Type Department Care Team (Late st Contact Info) Description 07/25/2021 Procedure Pass [facility] [address] [place] [address] Social History Tobacco Use Types Packs/Day Years [...] on filedocumented in this encounter Care Teams Mounter Clarinets Relationship Specialty Start Date End Date Shannan Medrano MD [facility] [place] [address] PCP - General Internal Medicine 06/01/21 Elfego Morales MD [address] [place] [address] Pulmonary Disease 08/14/20 Jacobo Sherwood MD [address] [place] [address] MARIA [email or web address] Pulmonary Disease 07/25/21 Javed Griffin MD [address] [place] [address] DARLENE@[email or web address] Cardiothoracic Surgery 07/25/21 documented as of this encounter Additional Source Comments The information contained in this document represents components of the legal health record. It is not the complete legal health record.[facility]
--- OUTSIDE RECORDS SUMMARY | 2024-11-25 08:23 | XMS_ITS | Encounter Summary ---
Author Organization [facility] Address [address] [facility] [address] [place] [address] Phone Care Team Providers Care Fish Peddler Name Role Phone Elfego Morales MD Unavailable Elfego Morales MD Primary Care Provider Shannan Medrano MD Primary Care Provider Jacobo Sherwood MD Unavailable [phone] Javed Griffin MD Unavailable Encounter Details Date Type Department Care Team (Late st Contact Info) Description 12/07/2020 Procedure Pass [facility] [place] [address] [facility], [address], [address] [place] [address] Social History Tobacco Use Types [...] on filedocumented in this encounter Care Teams Fish Peddler Relationship Specialty Start Date End Date Elfego Morales MD [address] [facility] [place] [address] PCP - General Pulmonary Disease 12/04/20 05/31/21 Shannan Medrano MD [address] [place] [address] PCP - General Internal Medicine 06/01/21 Elfego Morales MD [address] [place] [address] Pulmonary Disease 08/14/20 Jacobo Sherwood MD [address] [place] [address] MARIA [email or web address] Pulmonary Disease 07/25/21 Javed Griffin MD [address] [place] [address] DARLENE@[email or web address] Cardiothoracic Surgery 07/25/21 documented as of this encounter Additional Source Comments The information contained in this document represents components of the legal health record. It is not the complete legal health record.[facility]
--- OUTSIDE RECORDS SUMMARY | 2024-11-25 08:24 | XMS_ITS | Encounter Summary ---
Author Organization [facility] Address [address] [place] [address] Care Team Providers Care Stamping Press Operator Name Role Phone Chad Donnelly MD Primary Care Provider Josie vailable [facility], Pcp Primary Care Provider Unavailabl e Community, Pcp Primary Care Provider Unavailabl e Gail Oshea MD Primary Care Provider Unavail able Gail Oshea MD Primary Care Provider Unavail able Shannan Medrano MD Primary Care Provider Unavaila ble Encounter Details Date Type Department Care Team Description 06/02/2012 Leather Leveler Report Medical Records [address] [place] [address] Kashif Lyons Social History Tobacco Use Types [...] on filedocumented in this encounter Care Teams Stamping Press Operator Relationship Specialty Start Date End Date Chad Donnelly MD PCP - General 10/25/08 07/20/14 Community, Pcp PCP - General Internal Medicine 11/20/15 10/02/17 Community, Pcp PCP - General Internal Medicine 10/03/17 10/05/17 Gail Oshea MD PCP - General Internal Medicine 10/06/17 12/15/19 Gail Oshea MD PCP - General Internal Medicine 12/16/19 06/19/20 Shannan Medrano MD PCP - General Internal Medicine 06/20/20 documented as of this encounter
--- OUTSIDE RECORDS SUMMARY | 2024-11-25 08:24 | XMS_ITS | Encounter Summary ---
Author Organization [facility] Address [address] [place] [address] Care Team Providers Care Instructional Coach Name Role Phone Gail Oshea MD Primary Care Provider Unavail able Shannan Medrano MD Primary Care Provider Unavaileddie lechuga Encounter Details Date Type Department Care Team Description 01/18/2020 Shoe Sewing Machine Operator And Tender Report Medical Records [address] [place] [address] Elfego Morales MD Social History Tobacco Use [...] on filedocumented in this encounter Care Teams Instructional Coach Relationship Specialty Start Date End Date Gail Oshea MD PCP - General Internal Medicine 12/16/19 06/19/20 Shannan Medrano MD PCP - General Internal Medicine 06/20/20 documented as of this encounter
--- OUTSIDE RECORDS SUMMARY | 2024-11-25 08:24 | XMS_ITS | Encounter Summary ---
Author Organization [facility] Address [address] [place] [address] Care Team Providers Care Telecommunications Cable Jointer Name Role Phone Gail Oshea MD Primary Care Provider Unavail able Shannan Medrano MD Primary Care Provider Unavaileddie lechuga Encounter Details Date Type Department Care Team Description 03/28/2020 Orders Only Adult Medicine [address] [address] Gail Oshea MD Social History Tobacco Use [...] on filedocumented in this encounter Care Teams Telecommunications Cable Jointer Relationship Specialty Start Date End Date Gail Oshea MD PCP - General Internal Medicine 12/16/19 06/19/20 Shannan Medrano MD PCP - General Internal Medicine 06/20/20 documented as of this encounter
--- OUTSIDE RECORDS SUMMARY | 2024-11-25 08:24 | XMS_ITS | Encounter Summary ---
Author Organization [facility] Address [address] [place] [address] Care Team Providers Care Culinary Specialist Name Role Phone Gail Oshea MD Primary Care Provider Unavail Shannan Grayson MD Primary Care Provider Emily lechuga Encounter Details Date Type Department Care Team Description 03/09/2020 Control Room Technician Report Medical Records [address] [place] [address] Taylor Hines Social History Tobacco Use Types Packs/Day Years [...] on filedocumented in this encounter Care Teams Culinary Specialist Relationship Specialty Start Date End Date Gail Oshea MD PCP - General Internal Medicine 12/16/19 06/19/20 Shannan Medrano MD PCP - General Internal Medicine 06/20/20 documented as of this encounter
--- OUTSIDE RECORDS SUMMARY | 2024-11-25 08:24 | XMS_ITS | Clinical Summary ---
Author Organization [facility] Address [address] [place] [address] Phone Care Team Providers Care Tribal Council Member Name Role Phone Elfego Morales MD Unavailable [phone] Shannan Medrano MD Primary Care Provider Jacobo Sherwood MD Unavailable [phone] Javed Griffin MD Unavailable [phone] Allergies Active Allergy Reactions Criticality Noted Date [...] HIV ONE-TIME SCREENING (18-6 5 YEARS) 1998 COVID-19 VACCINE (2023-2 5 season) 2024 05/24/2021, [...] Advance Directives For more information, please contact: [phone] (9AM - 5PM [facility], Friday-Friday) Documents on File Type Date Recorded Patient Driver Starting Gate Expl anation Healthcare Proxy 06/05/2021 2:19 PM * Full Code (Latest Code Status on File) Date Activated Date Inactivated Comments 06/18/2021 2:09 PM Question Answer Comments Code Status Confirmed With: Other (specify below ) Code Status Communicated To: Other (specify belo w) Code Discussion Comments: discussed by p re-operative team; will be confirmed when patient extubated in ICU Care Teams Tribal Council Member Relationship Specialty Start Date End Date Shannan Medrano MD [address] [place], [place] PCP - General Internal Medicine 06/01/21 Elfego Morales MD [address] [place] [address] [place] [address] Pulmonary Disease 08/14/20 Jacobo Sherwood MD [address] [place] [address] MARIA [email or web address] Pulmonary Disease 07/25/21 Javed Griffin MD [address] [place] [address] [email or web address] Cardiothoracic Surgery 07/25/21 Additional Source Comments The information contained in this document represents components of the legal health record. It is not the complete legal health record.[facility]
--- OUTSIDE RECORDS SUMMARY | 2024-11-25 08:24 | XMS_ITS | Encounter Summary ---
Author Organization [facility] Address [address] [place] [address] Care Team Providers Care Veneer Stock Grader Name Role Phone Gail Oshea MD Primary Care Provider Unavail able Shannan Medrano MD Primary Care Provider Unavaileddie lechuga Encounter Details Date Type Department Care Team Description 02/17/2020 Fuel Cell Assembler Report Medical Records [address] [place] [address] Elfego Morales MD Social History Tobacco Use [...] on filedocumented in this encounter Care Teams Veneer Stock Grader Relationship Specialty Start Date End Date Gail Oshea MD PCP - General Internal Medicine 12/16/19 06/19/20 Shannan Medrano MD PCP - General Internal Medicine 06/20/20 documented as of this encounter
--- OUTSIDE RECORDS SUMMARY | 2024-11-25 08:24 | XMS_ITS | Encounter Summary ---
Author Organization [facility] Address [address] [place] [address] Phone Care Team Providers Care Machine Staker Name Role Phone Elfego Morales MD Unavailable [phone] Elfego Morales MD Primary Care Provider Shannan Medrano MD Primary Care Provider Jacobo Sherwood MD Unavailable [phone] Javed Griffin MD Unavailable Encounter Details Date Type Department Care Team (Late st Contact Info) Description 09/22/2020 Telephone [facility] Nuclear Medicine, [address] [place] [address] Jacobo Sherwood MD [address] [place] [address] MARIA GUADALUPE@[email or web address] Social History Tobacco Use Types Packs/Day Years [...] on filedocumented in this encounter Care Teams Machine Staker Relationship Specialty Start Date End Date Elfego Morales MD [address] [place] [address] PCP - General Pulmonary Disease 12/04/20 05/31/21 Shannan Medrano MD [address] [place] [address] PCP - General Internal Medicine 06/01/21 Elfego Morales MD [address] [place] [address] Pulmonary Disease 08/14/20 Jacobo Sherwood MD [address] [place] [address] MARIA GUADALUPE@[email or web address] Pulmonary Disease 07/25/21 Javed Griffin MD [address] [place] [address] DARLENE@[email or web address] Cardiothoracic Surgery 07/25/21 documented as of this encounter Additional Source Comments The information contained in this document represents components of the legal health record. It is not the complete legal health record.[facility]
--- OUTSIDE RECORDS SUMMARY | 2024-11-25 08:25 | XMS_ITS | Encounter Summary ---
Author Organization [facility] Address [address] [place] [address] [address] [place] [address] Phone Care Team Providers Care Bobbin Washer Name Role Phone Elfego Morales MD Unavailable Shannan Medrano MD Primary Care Provider Jacobo Sherwood MD Unavailable [phone] Javed Griffin MD Unavailable Encounter Details Date Type Department Care Team (Late st Contact Info) Description 07/14/2021 Procedure Pass [facility] Cardiac Software Team Leader [address] [facility], [address], [address] [place] [address] Social History Tobacco Use Types [...] on filedocumented in this encounter Care Teams Bobbin Washer Relationship Specialty Start Date End Date Shannan Medrano MD [facility] [place] [address] PCP - General Internal Medicine 06/01/21 Elfego Morales MD [address] [place] [address] Pulmonary Disease 08/14/20 Jacobo Sherwood MD [address] [place] [address] MARIA [email or web address] Pulmonary Disease 07/25/21 Javed Griffin MD [address] [place] [address] [email or web address] Cardiothoracic Surgery 07/25/21 documented as of this encounter Additional Source Comments The information contained in this document represents components of the legal health record. It is not the complete legal health record.[facility]
--- OUTSIDE RECORDS SUMMARY | 2024-11-25 08:25 | XMS_ITS | Encounter Summary ---
Author Organization [facility] Address [address] [place] [address] [address] [place] [address] Phone Care Team Providers Care Internal Communications Intern Name Role Phone Elfego Morales MD Unavailable Shannan Medrano MD Primary Care Provider Jacobo Sherwood MD Unavailable [phone] Javed Griffin MD Unavailable [phone] Encounter Details Date Type Department Care Team (Late st Contact Info) Description 07/14/2021 Procedure Pass [facility] [place]iac Steam Press Operator [address] [facility], Floor 9, [address] [place] [address] Social History Tobacco Use Types [...] on filedocumented in this encounter Care Teams Internal Communications Intern Relationship Specialty Start Date End Date Shannan Medrano MD [facility] [place] [address] PCP - General Internal Medicine 06/01/21 Elfego Morales MD [address] [place] [address] Pulmonary Disease 08/14/20 Jacobo Sherwood MD [address] [place] [address] MARIA GUADALUPE@[email or web address] Pulmonary Disease 07/25/21 Javed Griffin MD [address] [place] [address] DARLENE@[email or web address] Cardiothoracic Surgery 07/25/21 documented as of this encounter Additional Source Comments The information contained in this document represents components of the legal health record. It is not the complete legal health record.[facility]
--- OUTSIDE RECORDS SUMMARY | 2024-11-25 08:25 | XMS_ITS | Encounter Summary ---
Author Organization [facility] Address [address] [place] [address] Phone Care Team Providers Care Automatic Winder Operator Name Role Phone Elfego Morales MD Unavailable Shannan Medrano MD Primary Care Provider Jacobo Sherwood MD Unavailable [phone] Javed Griffin MD Unavailable [phone] Encounter Details Date Type Department Care Team (Late st Contact Info) Description 06/18/2021 Procedure Pass [facility] PERIOPER[place]IVE DEPT [address] [place] [phone] Social History Tobacco Use Types Packs/Day Years [...] on filedocumented in this encounter Care Teams Automatic Winder Operator Relationship Specialty Start Date End Date Shannan Medrano MD [address] [place] [address] PCP - General Internal Medicine 06/01/21 Elfego Morales MD [address] [place] [address] Pulmonary Disease 08/14/20 Jacobo Sherwood MD [address] [place] [address] MARIA [email or web address] Pulmonary Disease 07/25/21 Javed Griffin MD [address] [place] [address] [email or web address] Cardiothoracic Surgery 07/25/21 documented as of this encounter Additional Source Comments The information contained in this document represents components of the legal health record. It is not the complete legal health record.[facility]
--- OUTSIDE RECORDS SUMMARY | 2024-11-25 08:25 | XMS_ITS | Encounter Summary ---
Author Organization [facility] Address [address] [facility] [address] [place] [address] Phone Care Team Providers Care Box Storage Worker Name Role Phone Elfego Morales MD Unavailable Elfego Morales MD Primary Care Provider Shannan Medrano MD Primary Care Provider Jacobo Sherwood MD Unavailable [phone] Javed Griffin MD Unavailable Encounter Details Date Type Department Care Team (Late st Contact Info) Description 03/06/2021 Procedure Pass [facility] [place] [address] [place] [address] Social History Tobacco Use Types Packs/Day Years [...] on filedocumented in this encounter Care Teams Box Storage Worker Relationship Specialty Start Date End Date Elfego Morales MD [address] [place] [address] [place] [address] PCP - General Pulmonary Disease 12/04/20 05/31/21 Shannan Medrano MD [address] [place] [address] PCP - General Internal Medicine 06/01/21 Elfego Morales MD [address] [place] [address] Pulmonary Disease 08/14/20 Jacobo Sherwood MD [address] [place] [address] MARIA [email or web address] Pulmonary Disease 07/25/21 Javed Griffin MD [address] [place] [address] DARLENE@[email or web address] Cardiothoracic Surgery 07/25/21 documented as of this encounter Additional Source Comments The information contained in this document represents components of the legal health record. It is not the complete legal health record.[facility]
--- OUTSIDE RECORDS SUMMARY | 2024-11-25 08:25 | XMS_ITS | Encounter Summary ---
Author Organization [facility] Address [address] [place] [address] Phone Care Team Providers Care Mechanotherapist Name Role Phone Elfego Morales MD Unavailable Shannan Medrano MD Primary Care Provider Jacobo Sherwood MD Unavailable [phone] Javed Griffin MD Unavailable Encounter Details Date Type Department Care Team (Late st Contact Info) Description 06/21/2021 Procedure Pass [facility] [place] [address] [place] [address] Social History Tobacco Use Types Packs/Day Years [...] on filedocumented in this encounter Care Teams Mechanotherapist Relationship Specialty Start Date End Date Shannan Medrano MD [facility] [place] [address] PCP - General Internal Medicine 06/01/21 Elfego Morales MD [address] [place] [address] Pulmonary Disease 08/14/20 Jacobo Sherwood MD [address] [place] [address] MARIA [email or web address] Pulmonary Disease 07/25/21 Javed Griffin MD [address] [place] [address] [email or web address] Cardiothoracic Surgery 07/25/21 documented as of this encounter Additional Source Comments The information contained in this document represents components of the legal health record. It is not the complete legal health record.[facility]
--- OUTSIDE RECORDS SUMMARY | 2024-11-25 08:26 | XMS_ITS | Encounter Summary ---
Author Organization [facility] Address [address] [place] [address] Phone Care Team Providers Care Cell Attendant Helper Name Role Phone Elfego Moraels MD Unavailable [phone] Shannan Medrano MD Primary Care Provider [phone] Jacobo Sherwood MD Unavailable [phone] Javed Griffin MD Unavailable Encounter Details Date Type Department Care Team (Late st Contact Info) Description 06/18/2021 Procedure Pass [facility] Cardiac US [address] [place] [address] Social History Tobacco Use Types Packs/Day Years [...] on filedocumented in this encounter Care Teams Cell Attendant Helper Relationship Specialty Start Date End Date Shannan Medrano MD [facility] [place] [address] PCP - General Internal Medicine 06/01/21 Elfego Morales MD [address] [place] [address] Pulmonary Disease 08/14/20 Jacobo Sherwood MD [address] [place] [address] MARIA [email or web address] Pulmonary Disease 07/25/21 Javed Griffin MD [address] [place] [address] [email or web address] Cardiothoracic Surgery 07/25/21 documented as of this encounter Additional Source Comments The information contained in this document represents components of the legal health record. It is not the complete legal health record.[facility]
== END 2024-11-25 08:10 | disposition home or self-care (01) ==
LOC: HO.ACS 08:09
PROVIDERS: PCP Internal Medicine; Visit Provider Internal Medicine Medical Oncology
DX: Z79.01 Long term (current) use of anticoagulants (principal)

== ENCOUNTER → 2024-11-25 08:09 | Outpatient (BNVA) | payer OTHER, SELFPAY | PROVIDERS: PCP Internal Medicine; Visit Provider Internal Medicine Medical Oncology | DX: I26.99 Other pulmonary embolism without acute cor pulmonale (principal); Z79.01 Long term (current) use of anticoagulants; Z51.81 Encounter for therapeutic drug level monitoring | CPT/HCPCS: 85610; 99211 ==

== ENCOUNTER 2024-12-23 08:00 | Outpatient (AMB) | payer OTHER, SELFPAY ==
[2024-12-23 08:06] LABS: Prothrombin Time Whole Bld POC 21.9 sec (11.1-13.5); ~PT, ~INR - Anti Coag Clinic 1.8 (0.9-1.1)
--- NOTE | 2024-12-23 08:08 | MHC.OFFVISCO ---
Intake Intake Visit Reasons: Anticoagulation Allergies No Known Allergies [No Known Allergies*] Allergy (Verified 12/23/24 08:01) Medication List - Last Reconciled 12/23/24 by Lissette Becker RN lisinopril 10 mg PO DAILY warfarin 5 mg See Protocol PO DAILY 90 days Nursing Note INR: 1.8 in therapeutic range 1.8-2.5 Medications and supplements reviewed No changes in health, diet, medications, or supplements, Denies any signs and symptoms of bleeding or bruising or clotting. Bleeding, bruising, clotting discussed Nutritional guidance given Dose: 5MG DAILY F/U INR: 1 MONTH Patient verbalizes understanding of instructions given Anti-Coag Initial Assessment Social Hx Patient Tobacco Use Status: Never used Tobacco Smoking packs per day: 0 alcohol intake: current Alcohol intake frequency: holidays/special occasions only Cardiovascular Hx: HTN Lung Disease HX: Other Cancer HX: No Psych. Illness/Depression: No Coding Level of Care Code Est Patient Level 1 Diagnoses Current use of anticoagulant therapy Z79.01 Assessment & Plan Assessment & Plan (1) Current use of anticoagulant therapy: Code(s): Z79.01 - terminal make up operator (current) use of anticoagulants Category: Medical
== END 2024-12-23 08:11 | disposition home or self-care (01) ==
LOC: HO.ACS 08:00
PROVIDERS: PCP Internal Medicine; Visit Provider Internal Medicine Medical Oncology
DX: Z79.01 Long term (current) use of anticoagulants (principal)

== ENCOUNTER → 2024-12-23 08:00 | Outpatient (BNVA) | payer OTHER, SELFPAY | PROVIDERS: PCP Internal Medicine; Visit Provider Internal Medicine Medical Oncology | DX: I26.99 Other pulmonary embolism without acute cor pulmonale (principal); Z79.01 Long term (current) use of anticoagulants; Z51.81 Encounter for therapeutic drug level monitoring | CPT/HCPCS: 85610; 99211 ==

== ENCOUNTER 2025-01-27 08:02 | Outpatient (AMB) | payer OTHER, SELFPAY ==
[2025-01-27 08:08] LABS: Prothrombin Time Whole Bld POC 31.8 sec (11.1-13.5); ~PT, ~INR - Anti Coag Clinic 2.7 (0.9-1.1)
--- NOTE | 2025-01-27 08:13 | MHC.OFFVISCO ---
Intake Intake Visit Reasons: Anticoagulation Allergies No Known Allergies (No Known Allergies*) Allergy (Verified 01/27/25 08:02) Medication List - Last Reconciled 01/27/25 by Lissette Becker RN lisinopril 10 mg PO DAILY warfarin 5 mg See Protocol PO DAILY 90 days Nursing Note INR: 2.7 in therapeutic range Medications and supplements reviewed No changes in health, diet, medications, or supplements, Denies any signs and symptoms of bleeding or bruising or clotting. Bleeding, bruising, clotting discussed Nutritional guidance given Dose: 5MG DAILY F/U INR: 1 MONTH Patient verbalizes understanding of instructions given Anti-Coag Initial Assessment Social Hx Patient Tobacco Use Status: Never used Tobacco Smoking packs per day: 0 alcohol intake: current Alcohol intake frequency: holidays/special occasions only Cardiovascular Hx: HTN Lung Disease HX: Other Cancer HX: No Psych. Illness/Depression: No Coding Level of Care Code Est Patient Level 1 Diagnoses Current use of anticoagulant therapy Z79.01 Results AMB INR Fingerstick AMB INR Fingerstick 2.7 Last Edit by Lissette Becker RN on 01/27/25 08:10 MANUAL Assessment & Plan Assessment & Plan (1) Current use of anticoagulant therapy: Code(s): Z79.01 - rn long term care (current) use of anticoagulants Category: Medical
== END 2025-01-27 08:15 | disposition home or self-care (01) ==
LOC: HO.ACS 08:02
PROVIDERS: PCP Internal Medicine; Visit Provider Internal Medicine Medical Oncology
DX: Z79.01 Long term (current) use of anticoagulants (principal)

== ENCOUNTER → 2025-01-27 08:02 | Outpatient (BNVA) | payer OTHER, SELFPAY | PROVIDERS: PCP Internal Medicine; Visit Provider Internal Medicine Medical Oncology | DX: I26.99 Other pulmonary embolism without acute cor pulmonale (principal); Z79.01 Long term (current) use of anticoagulants; Z51.81 Encounter for therapeutic drug level monitoring | CPT/HCPCS: 85610; 99211 ==

== ENCOUNTER 2025-02-16 12:53 | Outpatient (AMB) | payer OTHER, SELFPAY ==
[2025-02-16 13:18] VITALS: BP 124/80; PULSE 89; RESP 18; TEMP 36.9; O2SAT 96; BMI 28.9
--- NOTE | 2025-02-16 13:18 | A.OFFPC_ITS ---
Vital Signs 02/16/25 13:18 Height 6 ft 2 in Weight 225 lb BMI 28.9 BP 124/80 Blood Pressure Location Lt brachial Position Sitting Respiration 18 Pulse 89 Pulse Source Pulse Oximeter Temp 98.4 F Temp Source Oral Pulse Oximetry (%) 96 Oxygen Delivery Method Room Air Intake Visit Reasons: 4 months f/up Allergies No Known Allergies (No Known Allergies*) Allergy (Verified 02/16/25 14:05) Medication List - Last Reconciled 02/16/25 by Shannan Medrano MD lisinopril 10 mg PO DAILY warfarin 5 mg See Protocol PO DAILY 90 days Tobacco use date assessed: 02/16/25 Dental Screening Dental Screen Date: 08/25/24 HPI 4 months f/up HPI Details pt presents for f/u HTN, stable on Lisinopril. 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 Current occupational exposures/hazards: Yes Cognitive needs: No Hearing needs: No Vision needs: No Questionnaire Thrive Questionnaire Date Thrive assessed: 08/25/24 I am a: Patient What is your living situation today?: I have a steady place to live Within the past 12 months, did the food you bought not last and you didn't have the money to get more?: Never true Within the past 12 months, did you worry whether your food would run out before you got money to buy more?: Never true Do you have trouble paying for medicines?: No Do you have trouble getting transportation to medical appointments?: No Do you have trouble paying your heating and electricity bill?: No Do you have trouble taking care of your child, family member or friend?: No Do you have trouble with day-to-day activities such as bathing, preparing meals, shopping, managing finances, etc.?: No Are you currently unemployed and looking for a job?: No Are you interested in more education?: No Please select the resources that you would like help with: None Currently or been in a relationship where the following occur: No concerns reported THRIVE Score: 0 MOISÉS-7 AMB Questionnaire MOISÉS-7 Date MOISÉS - 7 assessed: 08/25/24 Source: Developed by Drs. Jimmy Johnson, Lizbeth Snyder, Rafat Garza and colleagues, with an educational liam from [employer]. Review of Systems Const All systems reviewed & are unremarkable except as noted in HPI and below Eyes Reports no additional complaints ENT Reports no additional complaints Card Reports no additional complaints Resp Reports no additional complaints GI Reports no additional complaints Physical exam (Primary Care) Vital Signs: Last Vital Signs Temp 98.4 F 02/16/25 13:18 Pulse 89 02/16/25 13:18 Resp 18 02/16/25 13:18 BP 124/80 02/16/25 13:18 Pulse Ox 96 02/16/25 13:18 Oxygen Delivery Method Room Air 02/16/25 13:18 BMI result Body Mass Index 28.9 Tobacco/Smoking Status: Tobacco use Status Tobacco use date assessed 02/16/25 02/16/25 13:24 Patient Tobacco Use Status Never used Tobacco 02/16/25 13:24 e-Cigarette/Vaping Use Never Used 02/16/25 13:24 Thrive Assessment: Date of Thrive Assessment Date Thrive assessed 08/25/24 02/16/25 13:24 Currently or been in a relationship where the following occur: No concerns reported Const General: healthy appearing HENMT Head: Yes normal to inspection Face and sinus: Yes normal facial exam Eyes General: appearance normal, both eyes and all related structures Neck Neck: Yes no lymphadenopathy and Yes supple Resp Effort & Inspection: normal respiratory effort Auscultation: clear to auscultation bilaterally Cardio Rhythm: regular rhythm Heart sounds: S1 normal heart sound present and S2 normal heart sound present GI Inspection: Yes normal to inspection Coding Level of Care Code Est Pt Level 4 (64028) Complex EM visit Add On G2211 Diagnoses HTN (hypertension) I10 Chronic thromboembolic disease I74.9 Assessment & Plan Assessment & Plan (1) HTN (hypertension): Code(s): I10 - Essential (primary) hypertension Category: Medical Plan: cont Lisinopril (2) Chronic thromboembolic disease: Comment: s/p Pulmonary endarterectomy, on lifetime warfarin Code(s): I74.9 - Embolism and thrombosis of unspecified artery Category: Medical Plan: cont Warfarin Orders: Orders Comprehensive [place]. Panel Fast 7 Months I10 - Essential (primary) hypertension, Z00.00 - Encounter for general adult medical examination without abnormal findings Hemoglobin A1c 7 Months Z00.00 - Encounter for general adult medical examination without abnormal findings UA w Microscopic 7 Months Z00.00 - Encounter for general adult medical examination without abnormal findings Complete Blood Count Auto Diff 7 Months I10 - Essential (primary) hypertension, Z00.00 - Encounter for general adult medical examination without abnormal findings Lipid Panel 7 Months I10 - Essential (primary) hypertension, Z00.00 - Encounter for general adult medical examination without abnormal findings
--- OUTSIDE RECORDS SUMMARY | 2025-02-16 13:26 | XMS_ITS | Encounter Summary ---
Author Organization [facility] Address [address] [place] [address] Care Team Providers Care Golf Sales Manager Name Role Phone Gail Oshea MD Primary Care Provider Unavail able Gail Oshea MD Primary Care Provider Unavail able Shannan Medrano MD Primary Care Provider Unavaila ble Encounter Details Date Type Department Care Team Description 03/31/2018 Telephone Pulmonology [address] [place] [address] Gomez Chang MD [address] [place] [phone] Social History Tobacco Use Types Packs/Day [...] on filedocumented in this encounter Care Teams Golf Sales Manager Relationship Specialty Start Date End Date Gail Oshea MD PCP - General Internal Medicine 10/06/17 12/15/19 Gail Oshea MD PCP - General Internal Medicine 12/16/19 06/19/20 Shannna Medrano MD PCP - General Internal Medicine 06/20/20 documented as of this encounter
--- OUTSIDE RECORDS SUMMARY | 2025-02-16 13:26 | XMS_ITS | Encounter Summary ---
Author Organization [facility] Address [address] [place] [address] Phone Care Team Providers Care Nuclear Criticality Safety Engineer Name Role Phone Elfego Morales MD Unavailable [phone] Shannan Medrano MD Primary Care Provider Jacobo Sherwood MD Unavailable Javed Griffin MD Unavailable Encounter Details Date Type Department Care Team (Late st Contact Info) Description 11/28/2022 Procedure Pass [facility] [address] [place] [address] Social History Tobacco Use Types Packs/Day Years [...] Assigned at Male 06/27/2020 12:30 PM EST Legal Sex Male 12:20 PM EST Gender Identity Male 06/27/2020 12:30 PM EST Sexual Orientation Straight 06/27/2020 12 :30 PM EST documented as of this encounter Plan of Treatment Not on file documented as of this encounter Visit Diagnoses Not on filedocumented in this encounter Care Teams Nuclear Criticality Safety Engineer Relationship Specialty Start Date End Date Shannan Medrano MD [address] [facility] [place] [address] PCP - General Internal Medicine 06/01/21 Elfego Morales MD [address] [place] [address] [place] [address] Pulmonary Disease 08/14/20 Jacobo Sherwood MD [address] [place] [address] MARIA [email or web address] Pulmonary Disease 07/25/21 Javed Griffin MD [address] [place] [address] [email or web address] Cardiothoracic Surgery 07/25/21 documented as of this encounter Additional Source Comments The information contained in this document represents components of the legal health record. It is not the complete legal health record.[facility]
== END 2025-02-16 14:18 | disposition home or self-care (01) ==
LOC: HO.HMCC 12:54
PROVIDERS: PCP Internal Medicine; Visit Provider Internal Medicine
DX: I10 Essential (primary) hypertension (principal); I74.9 Embolism and thrombosis of unspecified artery

== ENCOUNTER → 2025-02-16 12:53 | Outpatient (BNVA) | payer OTHER, SELFPAY | PROVIDERS: PCP Internal Medicine; Visit Provider Internal Medicine | DX: I10 Essential (primary) hypertension (principal); I74.9 Embolism and thrombosis of unspecified artery | CPT/HCPCS: 99212 ==

== ENCOUNTER 2025-02-24 07:58 | Outpatient (AMB) | payer OTHER, SELFPAY ==
--- OUTSIDE RECORDS SUMMARY | 2025-02-24 08:01 | XMS_ITS | Encounter Summary ---
Author Organization [facility] Address [address] [place] [address] Phone Care Team Providers Care Director Of Sustainability Programs Name Role Phone Elfego Morales MD Unavailable Shannan Medrano MD Primary Care Provider [phone] Jacobo Sherwood MD Unavailable Javed Griffin MD Unavailable [phone] Encounter Details Date Type Department Care Team (Late st Contact Info) Description 11/28/2022 Procedure Pass [facility] [address] [place] [address] Social History Tobacco Use Types Packs/Day Years [...] on filedocumented in this encounter Care Teams Director Of Sustainability Programs Relationship Specialty Start Date End Date Shannan Medrano MD [address] [facility] [place] [address] PCP - General Internal Medicine 06/01/21 Elfego Morales MD [address] [place] [address] [place] [address] Pulmonary Disease 08/14/20 Jacobo Sherwood MD [address] [place] [address] MARIA [email or web address] Pulmonary Disease 07/25/21 Javed Griffin MD [address] [place] [address] [email or web address] Cardiothoracic Surgery 07/25/21 documented as of this encounter Additional Source Comments The information contained in this document represents components of the legal health record. It is not the complete legal health record.[facility]
--- NOTE | 2025-02-24 08:06 | MHC.OFFVISCO ---
Intake Intake Visit Reasons: Anticoagulation Allergies No Known Allergies (No Known Allergies*) Allergy (Verified 02/24/25 08:01) Medication List - Last Reconciled 02/24/25 by Lizzie Tabares RN lisinopril 10 mg PO DAILY warfarin 5 mg See Protocol PO DAILY 90 days Nursing Note INR 3.2-?? out of therapeutic range 1.8-2.5 Medications and supplements reviewed Patient status: pt unsure why inr is elev Medications or supplements: no changes Diet: good Denies any signs and symptoms of bleeding or clotting or unusual bruising Bleeding, bruising, clotting discussed Nutritional guidance given: eat greens to lower Dose: already took today, take 2.5mg tomm then cont reg 5mg x 7 F/U INR Date : pt req 4 weeks? Patient verbalizing understanding of instructions given. Anti-Coag Initial Assessment Social Hx Patient Tobacco Use Status: Never used Tobacco Smoking packs per day: 0 alcohol intake: current Alcohol intake frequency: holidays/special occasions only Cardiovascular Hx: HTN Lung Disease HX: Other Cancer HX: No Psych. Illness/Depression: No Coding Level of Care Code Est Patient Level 1 Diagnoses Current use of anticoagulant therapy Z79.01 Assessment & Plan Assessment & Plan (1) Current use of anticoagulant therapy: Code(s): Z79.01 - longterm (current) use of anticoagulants Category: Medical
[2025-02-24 08:07] LABS: Prothrombin Time Whole Bld POC 38.1 sec (11.1-13.5); ~PT, ~INR - Anti Coag Clinic 3.2 (0.9-1.1)
== END 2025-02-24 08:12 | disposition home or self-care (01) ==
LOC: HO.ACS 07:58
PROVIDERS: PCP Internal Medicine; Visit Provider Internal Medicine Medical Oncology
DX: Z79.01 Long term (current) use of anticoagulants (principal)

== ENCOUNTER → 2025-02-24 07:58 | Outpatient (BNVA) | payer OTHER, SELFPAY | PROVIDERS: PCP Internal Medicine; Visit Provider Internal Medicine Medical Oncology | DX: Z79.01 Long term (current) use of anticoagulants (principal) | CPT/HCPCS: 85610; 99211 ==

== ENCOUNTER 2025-03-24 08:00 | Outpatient (AMB) | payer OTHER, SELFPAY ==
[2025-03-24 08:07] LABS: Prothrombin Time Whole Bld POC 27.5 sec (11.1-13.5); ~PT, ~INR - Anti Coag Clinic 2.3 (0.9-1.1)
--- OUTSIDE RECORDS SUMMARY | 2025-03-24 08:07 | XMS_ITS | Encounter Summary ---
Author Organization [facility] Address [address] [place] [address] Care Team Providers Care Graphics Coordinator Name Role Phone Shannan Medrano MD Primary Care Provider Maria Antoniaa ankush Encounter Details Date Type Department Care Team Description 10/10/2020 Assistant Dean Of Students Report Medical Records [address] [place] [address] Elfego Morales MD Social History Tobacco Use [...] on filedocumented in this encounter Care Teams Graphics Coordinator Relationship Specialty Start Date End Date Shannan Medrano MD PCP - General Internal Medicine 06/20/20 documented as of this encounter
--- OUTSIDE RECORDS SUMMARY | 2025-03-24 08:08 | XMS_ITS | Encounter Summary ---
Author Organization [facility] Address [address] [place] [address] Care Team Providers Care Faculty Instructor Name Role Phone Chad Donnelly MD Primary Care Provider Josie vailable [facility], Pcp Primary Care Provider Unavailabl e Community, Pcp Primary Care Provider Unavailabl e Gail Oshea MD Primary Care Provider Unavail able Gail Oshea MD Primary Care Provider Unavail able Shannan Medrano MD Primary Care Provider Unavaila ble Encounter Details Date Type Department Care Team Description 06/02/2012 Animal Hospital Clerk Report Medical Records [address] [place] [address] Kashif Lyons Social History Tobacco Use Types [...] on filedocumented in this encounter Care Teams Faculty Instructor Relationship Specialty Start Date End Date Chad [...]
--- OUTSIDE RECORDS SUMMARY | 2025-03-24 08:08 | XMS_ITS | Encounter Summary ---
Author Organization [facility] Address [address] [place] [address] Care Team Providers Care Fur Ironer Name Role Phone Gail Oshea MD Primary Care Provider Unavail able Shannan Medrano MD Primary Care Provider Unavaileddie lechuga Encounter Details Date Type Department Care Team Description 02/17/2020 Wound Nurse Report Medical Records [address] [place] [address] Elfego Morales MD Social History Tobacco Use [...] on filedocumented in this encounter Care Teams Fur Ironer Relationship Specialty Start Date End Date Gail Oshea MD PCP - General Internal Medicine 12/16/19 06/19/20 Shannan Medrano MD PCP - General Internal Medicine 06/20/20 documented as of this encounter
--- OUTSIDE RECORDS SUMMARY | 2025-03-24 08:08 | XMS_ITS | Encounter Summary ---
Author Organization [facility] Address [address] [place] [address] Care Team Providers Care Loom Cleaner Name Role Phone Gail Oshea MD Primary Care Provider Unavail able Gail Oshea MD Primary Care Provider Unavail able Shannan Medrano MD Primary Care Provider Unavaila ble Encounter Details Date Type Department Care Team Description 10/27/2019 Release of Information Medical Records [address] [place] [address] Abstract, Provider Social History Tobacco Use Types Packs/Day Years [...] on filedocumented in this encounter Care Teams Loom Cleaner Relationship Specialty Start Date End Date Gail Oshea MD PCP - General Internal Medicine 10/06/17 12/15/19 Gail Oshea MD PCP - General Internal Medicine 12/16/19 06/19/20 Shannan Medrano MD PCP - General Internal Medicine 06/20/20 documented as of this encounter
--- NOTE | 2025-03-24 08:12 | MHC.OFFVISCO ---
Intake Intake Visit Reasons: Anticoagulation Allergies No Known Allergies (No Known Allergies*) Allergy (Verified 03/24/25 08:01) Medication List - Last Reconciled 03/24/25 by Licha Campo RN lisinopril 10 mg PO DAILY warfarin 5 mg See Protocol PO DAILY 90 days Nursing Note INR: 2.3 in therapeutic range of 2-3 Medications and supplements reviewed No changes in health, diet, medications, or supplements, Denies any signs and symptoms of bleeding or bruising or clotting. Bleeding, bruising, clotting discussed Nutritional guidance given Dose: 5mg daily F/U INR: 4 weeks Patient verbalizes understanding of instructions given Anti-Coag Initial Assessment Social Hx Patient Tobacco Use Status: Never used Tobacco Smoking packs per day: 0 alcohol intake: current Alcohol intake frequency: holidays/special occasions only Cardiovascular Hx: HTN Lung Disease HX: Other Cancer HX: No Psych. Illness/Depression: No Coding Level of Care Code Est Patient Level 1 Diagnoses Current use of anticoagulant therapy Z79.01 Assessment & Plan Assessment & Plan (1) Current use of anticoagulant therapy: Code(s): Z79.01 - senior living (current) use of anticoagulants Category: Medical
== END 2025-03-24 08:14 | disposition home or self-care (01) ==
LOC: HO.ACS 08:00
PROVIDERS: PCP Internal Medicine; Visit Provider Internal Medicine Medical Oncology
DX: Z79.01 Long term (current) use of anticoagulants (principal)

== ENCOUNTER → 2025-03-24 08:00 | Outpatient (BNVA) | payer OTHER, SELFPAY | PROVIDERS: PCP Internal Medicine; Visit Provider Internal Medicine Medical Oncology | DX: I26.99 Other pulmonary embolism without acute cor pulmonale (principal); Z79.01 Long term (current) use of anticoagulants; Z51.81 Encounter for therapeutic drug level monitoring | CPT/HCPCS: 85610; 99211 ==

== ENCOUNTER 2025-04-21 08:01 | Outpatient (AMB) | payer OTHER, SELFPAY ==
--- OUTSIDE RECORDS SUMMARY | 2025-04-21 08:08 | XMS_ITS | Encounter Summary ---
Author Organization [facility] Address [address] [place] [address] Phone Care Team Providers Care Children'S Lunchroom Supervisor Name Role Phone Elfego Morales MD Unavailable Shannan Medrano MD Primary Care Provider Jacobo Sherwood MD Unavailable [phone] Javed Griffin MD Unavailable Encounter Details Date Type Department Care Team (Late st Contact Info) Description 07/25/2021 Procedure Pass [facility] [address] [place] [address] Social History Tobacco Use Types Packs/Day Years [...] on filedocumented in this encounter Care Teams Children'S Lunchroom Supervisor Relationship Specialty Start Date End Date Shannan Medrano MD [facility] [place] [address] PCP - General Internal Medicine 11/12/21 Elfego Morales MD [address] [place] [address] [place] [address] Pulmonary Disease 08/14/20 Jacobo Sherwood MD [address] [place] [address] MARIA [email or web address] Pulmonary Disease 07/25/21 Javed Griffin MD [address] [place] [address] [email or web address] Cardiothoracic Surgery 07/25/21 documented as of this encounter Additional Source Comments The information contained in this document represents components of the legal health record. It is not the complete legal health record.[facility]
--- OUTSIDE RECORDS SUMMARY | 2025-04-21 08:08 | XMS_ITS | Encounter Summary ---
Author Organization [facility] Address [address] [place] [address] Phone Care Team Providers Care Vp Legal Affairs Name Role Phone Elfego Morales MD Unavailable Shannan Medrano MD Primary Care Provider [phone] Jacobo Sherwood MD Unavailable Javed Griffin MD Unavailable Encounter Details Date Type Department Care Team (Late st Contact Info) Description 11/28/2022 Procedure Pass [facility] [address] [place] [address] Social History Tobacco Use Types Packs/Day Years [...] on filedocumented in this encounter Care Teams Vp Legal Affairs Relationship Specialty Start Date End Date Shannan Medrano MD [address] [facility] [place] [address] PCP - General Internal Medicine 06/01/21 Elfego Morales MD [address] [place] [address] [place] [address] Pulmonary Disease 08/14/20 Jacobo Sherwood MD [address] [place] [address] MARIA [email or web address] Pulmonary Disease 07/25/21 Javed Griffin MD [address] [place] [address] [email or web address] Cardiothoracic Surgery 07/25/21 documented as of this encounter Additional Source Comments The information contained in this document represents components of the legal health record. It is not the complete legal health record.[facility]
--- OUTSIDE RECORDS SUMMARY | 2025-04-21 08:09 | XMS_ITS | Encounter Summary ---
Author Organization [facility] Address [address] [place] [address] [place] [address] Phone Care Team Providers Care Telecommunications Network Planner Name Role Phone Elfego Morales MD Unavailable Shannan Medrano MD Primary Care Provider Jacobo Sherwood MD Unavailable [phone] Javed Griffin MD Unavailable Encounter Details Date Type Department Care Team (Late st Contact Info) Description 07/14/2021 Procedure Pass [facility] Cardiac Motel Clerk [address] [place] [address] Social History Tobacco Use Types [...] filedocumented in this encounter Care Teams Telecommunications Network Planner Relationship Specialty Start Date End Date Shannan Medrano MD [address] [facility] [place] [address] PCP - General Internal Medicine 06/01/21 Elfego Morales MD [address] [place] [address] [place] [address] Pulmonary Disease 08/14/20 Jacobo Sherwood MD [address] [place] [address] MARIA [email or web address] Pulmonary Disease 07/25/21 Javed Griffin MD [address] [place] [address] [email or web address] Cardiothoracic Surgery 07/25/21 documented as of this encounter Additional Source Comments The information contained in this document represents components of the legal health record. It is not the complete legal health record.[facility]
--- OUTSIDE RECORDS SUMMARY | 2025-04-21 08:09 | XMS_ITS | Encounter Summary ---
Author Organization [facility] Address [address] [place] [address] Phone Care Team Providers Care Intern Architect Name Role Phone Elfego Morales MD Unavailable [phone] Elfego Morales MD Primary Care Provider Shannan Medrano MD Primary Care Provider [phone] Jacobo Sherwood MD Unavailable [phone] Javed Griffin MD Unavailable Encounter Details Date Type Department Care Team (Late st Contact Info) Description 09/22/2020 Telephone [facility] Nuclear Medicine, [address] 2[address] [place] [address] Jacobo Sherwood MD [address] [place] [address] MARIA [email or web address] Social History Tobacco Use Types Packs/Day [...] on filedocumented in this encounter Care Teams Intern Architect Relationship Specialty Start Date End Date Elfego Morales MD [address] [place] [address] [place] [address] PCP - General Pulmonary Disease 12/04/20 05/31/21 Shannan Medrano MD [address] [facility] [place] [address] PCP - General Internal Medicine 06/01/21 Elfego Morales MD [address] [place] [address] [place] [address] Pulmonary Disease 08/14/20 Jacobo Sherwood MD [address] [place] [address] MARIA [email or web address] Pulmonary Disease 07/25/21 Javed Griffin MD [address] [place] [address] [email or web address] Cardiothoracic Surgery 07/25/21 documented as of this encounter Additional Source Comments The information contained in this document represents components of the legal health record. It is not the complete legal health record.[facility]
--- OUTSIDE RECORDS SUMMARY | 2025-04-21 08:09 | XMS_ITS | Encounter Summary ---
Author Organization [facility] Address [address] [place] [address] [place] [address] Phone Care Team Providers Care Busboy Name Role Phone Elfego Morales MD Unavailable Elfego Morales MD Primary Care Provider Shannan Medrano MD Primary Care Provider Jacobo Sherwood MD Unavailable [phone] Javed Griffin MD Unavailable [phone] Encounter Details Date Type Department Care Team (Late st Contact Info) Description 12/07/2020 Procedure Pass [facility] Cardiac Etl Analyst [address], [address], [address] [place] [address] Social History Tobacco Use Types [...] on filedocumented in this encounter Care Teams Busboy Relationship Specialty Start Date End Date Elfego Morales MD [address] [place] [address] [place] [address] PCP - General Pulmonary Disease 12/04/20 05/31/21 Shannan Medrano MD [address] [place] [address] [place] [address] PCP - General Internal Medicine 06/01/21 Elfego Morales MD [address] [place] [address] [place] [address] Pulmonary Disease 08/14/20 Jacobo Sherwood MD [address] [place] [address] MARIA GUADALUPE@[email or web address] Pulmonary Disease 07/25/21 Javed Griffin MD [address] [place] [address] DARLENE@[email or web address] Cardiothoracic Surgery 07/25/21 documented as of this encounter Additional Source Comments The information contained in this document represents components of the legal health record. It is not the complete legal health record.[facility]
--- OUTSIDE RECORDS SUMMARY | 2025-04-21 08:09 | XMS_ITS | Encounter Summary ---
Author Organization [facility] Address [address] [place] [address] Phone Care Team Providers Care Mapping Specialist Name Role Phone Elfego Morales MD Unavailable [phone] Shannan Medrano MD Primary Care Provider [phone] Jacobo Sherwood MD Unavailable Javed Griffin MD Unavailable Encounter Details Date Type Department Care Team (Late st Contact Info) Description 06/21/2021 Procedure Pass [facility] [place] [place] [address] [place] [address] Social History Tobacco Use Types Packs/Day Years [...] PM EST documented as of this encounter Functional Status * Calculated C-SSRS Risk Score (Lifetime/Recent) Answer Date of Assessment Author No Risk Indicated 06/21/2021 3:00 PM EST Walter Manriquez, RN * [place] Suicide Severity Rating Scale (Screener/Recent Self-Report) Question Answer Date of Assessment Author 1. Wish to be (Past 1 Month) No 021 3:00 PM Roxana Valencia RN 2. Non-Specific Active Suici klaus Thoughts (Past 1 Month) No 06/21/2021 3:00 PM Roxana Valencia RN 6. Suicidal Behavior (Lifetime) No 3:00 PM Roxana Valencia RN documented as of this encounter Plan of Treatment Not on file documented as of this encounter Visit Diagnoses Not on filedocumented in this encounter Care Teams Mapping Specialist Relationship Specialty Start Date End Date Shannan Medrano MD [facility] [place] [address] PCP - General Internal Medicine 06/01/21 Elfego Morales MD [address] [place] [address] [place] [address] Pulmonary Disease 08/14/20 Jacobo Sherwood MD [address] [place] [address] MARIA [email or web address] Pulmonary Disease 07/25/21 Javed Griffin MD [address] [place] [address] DARLENE@[email or web address] Cardiothoracic Surgery 07/25/21 documented as of this encounter Additional Source Comments The information contained in this document represents components of the legal health record. It is not the complete legal health record.[facility]
--- OUTSIDE RECORDS SUMMARY | 2025-04-21 08:09 | XMS_ITS | Encounter Summary ---
Author Organization [facility] Address [address] [place] [address] Phone Care Team Providers Care Oral Health Therapist Name Role Phone Elfego Morales MD Unavailable Shannan Medrano MD Primary Care Provider [phone] Jacobo Sherwood MD Unavailable Javed Griffin MD Unavailable Encounter Details Date Type Department Care Team (Late st Contact Info) Description 06/18/2021 Procedure Pass [facility]IVE [facility] [address] [place] [phone] Social History Tobacco Use Types Packs/Day Years [...] Risk Indicated 06/21/2021 3:00 PM EST Walter Manriquez RN * [place] Suicide Severity Rating Scale (Screener/Recent Self-Report) Question [...] on filedocumented in this encounter Care Teams Oral Health Therapist Relationship Specialty Start Date End Date Shannan Medrano MD [facility] [place] [address] PCP - General Internal Medicine 06/01/21 Elfego Morales MD [address] [place] [address] [place] [address] Pulmonary Disease 08/14/20 Jacobo Sherwood MD [address] [place] [address] MARIA [email or web address] Pulmonary Disease 07/25/21 Javed Griffin MD [address] [place] [address] DARLENE@[email or web address] Cardiothoracic Surgery 07/25/21 documented as of this encounter Additional Source Comments The information contained in this document represents components of the legal health record. It is not the complete legal health record.[facility]
--- OUTSIDE RECORDS SUMMARY | 2025-04-21 08:09 | XMS_ITS | Encounter Summary ---
Author Organization [facility] Address [address] [place] [address] Phone Care Team Providers Care Multiple Pressure Riveter Operator Name Role Phone Elfego Morales MD Unavailable Elfego Morales MD Primary Care Provider Shannan Medrano MD Primary Care Provider [phone] Jacobo Sherwood MD Unavailable [phone] Javed Griffin MD Unavailable Encounter Details Date Type Department Care Team (Late st Contact Info) Description 03/06/2021 Procedure Pass [facility] Cardiac US [address] [place] [address] Social History Tobacco Use Types Packs/Day Years [...] on filedocumented in this encounter Care Teams Multiple Pressure Riveter Operator Relationship Specialty Start Date End Date Elfego Morales MD [address] [place] [address] [place] [address] PCP - General Pulmonary Disease 12/04/20 05/31/21 Shannan Medrano MD [address] [place] [address] [place] [address] PCP - General Internal Medicine 06/01/21 Elfego Morales MD [address] [place] [address] [place] [address] Pulmonary Disease 08/14/20 Jacobo Sherwood MD [address] [place], [place] [id number] [place] [address] MARIA GUADALUPE@[email or web address] Pulmonary Disease 07/25/21 Javed Griffin MD [address] [place], [place] [id number] [place] [address] DARLENE@[email or web address] Cardiothoracic Surgery 07/25/21 documented as of this encounter Additional Source Comments The information contained in this document represents components of the legal health record. It is not the complete legal health record.[facility]
--- OUTSIDE RECORDS SUMMARY | 2025-04-21 08:09 | XMS_ITS | Clinical Summary ---
Author Organization [facility] Address [address] [place] [address] Phone Care Team Providers Care Supervisor Edging Name Role Phone Elfego Morales MD Unavailable [phone] Shannan Medrano MD Primary Care Provider Jacobo Sherwood MD Unavailable [phone] Javed Griffin MD Unavailable Allergies Active Allergy Reactions Criticality Noted Date Comments Hydromorphone Other (See Comments) Low 06/25/2021 Reports forehead feeling hot (afebrile), with rash and peeling few days later Medications LORazepam (ATIVAN) 1 MG tablet Take 1 tablet (1 mg total) by mouth 2 (two) times a day as needed for anxiety. 10 tablet 1 Active Additional Information Patient not taking.Reported on 07/25/2021 acetaminophen (TYLENOL) 325 mg tablet Take 1-2 tablets (325-650 mg total) by mouth every 6 (six) hours as needed for mild pain. 0 1 Active Additional Information Patient not taking.Reported on 07/25/2021 lidocaine 4 % Place 2 patches onto the skin daily. 5 patch 1 Active Additional Information Patient not taking.Reported on 07/25/2021 melatonin 5 mg Tab Take 1 tablet (5 mg total) by mouth nightly at bedtime. 1 Active Additional Information Patient not taking.Reported on 07/25/2021 metoprolol succinate (TOPROL-XL) 25 MG 24 hr tablet Take 0.5 tablets (12.5 mg total) by mouth 2 (two) times a day. 30 tablet 2 Active oxyCODONE 5 MG immediate release tablet Take 0.5-1 tablets (2.5-5 mg total) by mouth every 6 (six) hours as needed for moderate pain. Partial fill ok 21 tablet 1 Active Additional Information Patient not taking.Reported on 07/25/2021 warfarin (COUMADIN) 1 MG tablet Take 1-10 tablets per day as instructed by your PCP. Your dose will vary based on INR. 200 tablet 1 Active Active Problems Problem Noted Date Diagnosed [...] Answer Date Recorded No 12/14/2022 No 12/14/2022 Reliable internet access [...] 86 07/25/2021 10:45 AM EST Temperature 36.2 C (97.1 F) 07/25/2021 10:45 AM EST Respiratory Rate 16 07/25/2021 10:45 AM EST [...] (18-6 5 YEARS) 1998 INFLUENZA VACCINE (#1) 2025 05/02/2021 COVID-19 VACCINE (2024-2 6 season) 2025 05/24/2021, 09/25/2020, 09/03/2020 SMOKING STATUS SCREENING (On [...] age to complete this topic MENINGOCOCCAL VACCINES (B) Aged Out N o longer eligible based on patient's age to complete this topic PNEUMOCOCCAL VACCINES (0-49 years) Aged Out No longer eligible b ased on patient's age to complete this topic Medical Devices Not on file Insurance [facility] DIRECT [facility] DIRECT [facility] DIRECT [facility] DIRECT [facility] DIRECT [facility] DIRECT [employer] DIRECT Advance Directives For more information, please contact: [phone] (9AM [phone] 5PM [facility], Friday-Friday) Documents on File Type Date Recorded Patient Degreaser Operator Expl anation Healthcare Proxy 06/05/2021 2:19 PM * Full Code (Latest Code Status on File) Date Activated Date Inactivated Comments 06/18/2021 2:09 PM Question Answer Comments Code Status Confirmed With: Other (specify below ) Code Status Communicated To: Other (specify belo w) Code Discussion Comments: discussed by p re-operative team; will be confirmed when patient extubated in ICU Care Teams Supervisor Edging Relationship Specialty Start Date End Date Shannan Medrano MD [facility] [place] [address] PCP - General Internal Medicine 06/01/21 Elfego Morales MD [address] [place] [address] [place] [address] Pulmonary Disease 08/14/20 Jacobo Sherwood MD [address] [place] [address] MARIA GUADALUPE@[email or web address] Pulmonary Disease 07/25/21 Javed Griffin MD [address] [place] [address] DARLENE@[email or web address] Cardiothoracic Surgery 07/25/21 Additional Source Comments The information contained in this document represents components of the legal health record. It is not the complete legal health record.[facility]
--- OUTSIDE RECORDS SUMMARY | 2025-04-21 08:10 | XMS_ITS | Encounter Summary ---
Author Organization [facility] Address [address] [place] [address] Phone Care Team Providers Care Customer Security Clerk Name Role Phone Elfego Morales MD Unavailable Shannan Medrano MD Primary Care Provider [phone] Jacobo Sherwood MD Unavailable Javed Griffin MD Unavailable [phone] Encounter Details Date Type Department Care Team (Late st Contact Info) Description 06/18/2021 Procedure Pass [facility] Cardiac US [address] [place] [address] Social History Tobacco Use Types Packs/Day Years [...] 3:00 PM EST Walter Manriquez, RN * [place] Suicide Severity Rating Scale (Screener/Recent Self-Report) Question [...] on filedocumented in this encounter Care Teams Customer Security Clerk Relationship Specialty Start Date End Date Shannan Medrano MD [facility] [place] [address] PCP - General Internal Medicine 06/01/21 Elfego Morales MD [address] [place] [address] [place] [address] Pulmonary Disease 08/14/20 Jacobo Sherwood MD [address] [place] [address] MARIA GUADALUPE@[email or web address] Pulmonary Disease 07/25/21 Javed Griffin MD [address] [place] [address] DARLENE@[email or web address] Cardiothoracic Surgery 07/25/21 documented as of this encounter Additional Source Comments The information contained in this document represents components of the legal health record. It is not the complete legal health record.[facility]
--- OUTSIDE RECORDS SUMMARY | 2025-04-21 08:10 | XMS_ITS | Encounter Summary ---
Author Organization [facility] Address [address] [place] [address] [place] [address] Phone Care Team Providers Care Php Mysql Web Developer Name Role Phone Elfego Morales MD Unavailable Shannan Medrano MD Primary Care Provider [phone] Jacobo Sherwood MD Unavailable [phone] Javed Griffin MD Unavailable Encounter Details Date Type Department Care Team (Late st Contact Info) Description 07/14/2021 Procedure Pass [facility] Cardiac Stitcher Hand [address] [facility], [address] 9, [address] [place] [address] Social History Tobacco Use Types [...] on filedocumented in this encounter Care Teams Php Mysql Web Developer Relationship Specialty Start Date End Date Shannan Medrano MD [address] [facility] [place] [address] PCP - General Internal Medicine 06/01/21 Elfego Morales MD [address] [place] [address] [place] [address] Pulmonary Disease 08/14/20 Jacobo Sherwood MD [address] [place] [address] MARIA [email or web address] Pulmonary Disease 07/25/21 Javed Griffin MD [address] [place] [address] [email or web address] Cardiothoracic Surgery 07/25/21 documented as of this encounter Additional Source Comments The information contained in this document represents components of the legal health record. It is not the complete legal health record.[facility]
[2025-04-21 08:11] LABS: Prothrombin Time Whole Bld POC 22.7 sec (11.1-13.5); ~PT, ~INR - Anti Coag Clinic 1.9 (0.9-1.1)
--- NOTE | 2025-04-21 08:16 | MHC.OFFVISCO ---
Intake Intake Visit Reasons: Anticoagulation Allergies No Known Allergies (No Known Allergies*) Allergy (Verified 04/21/25 08:05) Medication List - Last Reconciled 04/21/25 by Lissette Becker RN lisinopril 10 mg PO DAILY warfarin 5 mg See Protocol PO DAILY 90 days Nursing Note INR: 1.9 in therapeutic range 1.8-2.5 Medications and supplements reviewed No changes in health, diet, medications, or supplements, Denies any signs and symptoms of bleeding or bruising or clotting. Bleeding, bruising, clotting discussed Nutritional guidance given Dose: 5MG DAILY F/U INR: 1 MONTH Patient verbalizes understanding of instructions given Anti-Coag Initial Assessment Social Hx Patient Tobacco Use Status: Never used Tobacco Smoking packs per day: 0 alcohol intake: current Alcohol intake frequency: holidays/special occasions only Cardiovascular Hx: HTN Lung Disease HX: Other Cancer HX: No Psych. Illness/Depression: No Coding Level of Care Code Est Patient Level 1 Diagnoses Current use of anticoagulant therapy Z79.01 Results AMB INR Fingerstick AMB INR Fingerstick 1.9 Last Edit by Lissette Becker RN on 04/21/25 08:13 MANUAL ENTRY Assessment & Plan Assessment & Plan (1) Current use of anticoagulant therapy: Code(s): Z79.01 - assisted (current) use of anticoagulants Category: Medical
== END 2025-04-21 08:18 | disposition home or self-care (01) ==
LOC: HO.ACS 08:01
PROVIDERS: PCP Internal Medicine; Visit Provider Internal Medicine Medical Oncology
DX: Z79.01 Long term (current) use of anticoagulants (principal)

== ENCOUNTER → 2025-04-21 08:01 | Outpatient (BNVA) | payer OTHER, SELFPAY | PROVIDERS: PCP Internal Medicine; Visit Provider Internal Medicine Medical Oncology | DX: I26.99 Other pulmonary embolism without acute cor pulmonale (principal); Z79.01 Long term (current) use of anticoagulants; Z51.81 Encounter for therapeutic drug level monitoring | CPT/HCPCS: 85610; 99211 ==

== ENCOUNTER 2025-05-26 07:59 | Outpatient (AMB) | payer OTHER, SELFPAY ==
--- OUTSIDE RECORDS SUMMARY | 2025-05-26 08:05 | XMS_ITS | Encounter Summary ---
Author Organization [facility] Address [address] [place] [address] Phone Care Team Providers Care Upper Inspector Name Role Phone Elfego Morales MD Unavailable Shannan Medrano MD Primary Care Provider [phone] Jacobo Sherwood MD Unavailable [phone] Javed Griffin MD Unavailable Encounter Details Date Type Department Care Team (Late st Contact Info) Description 07/25/2021 Procedure Pass [facility] [address] [place] [address] Social History Tobacco Use Types Packs/Day Years [...] on filedocumented in this encounter Care Teams Upper Inspector Relationship Specialty Start Date End Date Shannan Medrano MD [facility] [place] [address] PCP - General Internal Medicine 11/12/21 Elfego Morales MD [address] [place] [address] [place] [address] Pulmonary Disease 08/14/20 Jacobo Sherwood MD [address] [place] [address] MARIA [email or web address] Pulmonary Disease 07/25/21 Javed Griffin MD [address] [place] [address] [email or web address] Cardiothoracic Surgery 07/25/21 documented as of this encounter Additional Source Comments The information contained in this document represents components of the legal health record. It is not the complete legal health record.[facility]
--- OUTSIDE RECORDS SUMMARY | 2025-05-26 08:05 | XMS_ITS | Encounter Summary ---
Author Organization [facility] Address [address] [place] [address] Phone Care Team Providers Care Plater Helper Name Role Phone Elfego Morales MD Unavailable Shannan Medrano MD Primary Care Provider [phone] Jacobo Sherwood MD Unavailable Javed Griffin MD Unavailable Encounter Details Date Type Department Care Team (Late st Contact Info) Description 11/28/2022 Procedure Pass [facility] [address] [place] [address] Social History Tobacco Use Types Packs/Day Years [...] on filedocumented in this encounter Care Teams Plater Helper Relationship Specialty Start Date End Date Shannan Medrano MD [address] [place] [address] PCP - General Internal Medicine 06/01/21 Elfego Morales MD [address] [place] [address] [place] [address] Pulmonary Disease 08/14/20 Jacobo Sherwood MD [address] [place] [address] MARIA GUADALUPE@[email or web address] Pulmonary Disease 07/25/21 Javed Griffin MD [address] [place] [address] DARLENE@[email or web address] Cardiothoracic Surgery 07/25/21 documented as of this encounter Additional Source Comments The information contained in this document represents components of the legal health record. It is not the complete legal health record.[facility]
--- OUTSIDE RECORDS SUMMARY | 2025-05-26 08:06 | XMS_ITS | Encounter Summary ---
Author Organization [facility] Address [address] [place] [address] Phone Care Team Providers Care Color Card Maker Name Role Phone Elfego Morales MD Unavailable Elfego Morales MD Primary Care Provider Shannan Medrano MD Primary Care Provider [phone] Jacobo Sherwood MD Unavailable [phone] Javed Griffin MD Unavailable Encounter Details Date Type Department Care Team (Late st Contact Info) Description 03/06/2021 Procedure Pass [facility] [address] [place] [address] Social History Tobacco Use Types Packs/Day Years [...] on filedocumented in this encounter Care Teams Color Card Maker Relationship Specialty Start Date End Date Elfego Morales MD [address] [place] [address] [place] [address] PCP - General Pulmonary Disease 12/04/20 05/31/21 Shannan Medrano MD [address] [place] [address] PCP - General Internal Medicine 06/01/21 Elfego Morales MD [address] [place] [address] [place] [address] Pulmonary Disease 08/14/20 Jacobo Sherwood MD [address] [place] [address] MARIA GUADALUPE@[email or web address] Pulmonary Disease 07/25/21 Javed Griffin MD [address] [place] [address] [email or web address] Cardiothoracic Surgery 07/25/21 documented as of this encounter Additional Source Comments The information contained in this document represents components of the legal health record. It is not the complete legal health record.[facility]
--- OUTSIDE RECORDS SUMMARY | 2025-05-26 08:06 | XMS_ITS | Encounter Summary ---
Author Organization [facility] Address [address] [place] [address] Phone Care Team Providers Care Duralumin Mechanic Name Role Phone Elfego Morales MD Unavailable [phone] Elfego Morales MD Primary Care Provider Shannan Medrano MD Primary Care Provider Jacobo Sherwood MD Unavailable [phone] Javed Griffin MD Unavailable Encounter Details Date Type Department Care Team (Late st Contact Info) Description 09/22/2020 Telephone [facility] Nuclear Medicine, [address], 2nd [place] [address] Jacobo Sherwood MD [address] [place] [address] MARIA GUADALUPE@[email or web address] Social History Tobacco Use Types Packs/Day Years [...] on filedocumented in this encounter Care Teams Duralumin Mechanic Relationship Specialty Start Date End Date Elfego Morales MD [address] [place] [address] [place] [address] PCP - General Pulmonary Disease 12/04/20 05/31/21 Shannan Medrano MD [address] [place] [address] PCP - General Internal Medicine 06/01/21 Elfego Morales MD [address] [place] [address] [place] [address] Pulmonary Disease 08/14/20 Jacobo Sherwood MD [address] [place] [address] MARIA GUADALUPE@[email or web address] Pulmonary Disease 07/25/21 Javed Griffin MD [address] [place] [address] DARLENE@[email or web address] Cardiothoracic Surgery 07/25/21 documented as of this encounter Additional Source Comments The information contained in this document represents components of the legal health record. It is not the complete legal health record.[facility]
--- OUTSIDE RECORDS SUMMARY | 2025-05-26 08:06 | XMS_ITS | Encounter Summary ---
Author Organization [facility] Address [address] [place] [address] Phone Care Team Providers Care Private Branch Exchange Service Advisor Name Role Phone Elfego Morales MD Unavailable Shannan Medrano MD Primary Care Provider Jacobo Sherwood MD Unavailable Javed Griffin MD Unavailable Encounter Details Date Type Department Care Team (Late st Contact Info) Description 06/18/2021 Procedure Pass [facility] PERIOPERATIVE DEPT [address] [place] [phone] Social History Tobacco Use Types Packs/Day Years [...] Indicated 06/21/2021 3:00 PM EST Walter Manriquez, SHEEBA * [place] Suicide Severity Rating Scale (Screener/Recent Self-Report) Question [...] on filedocumented in this encounter Care Teams Private Branch Exchange Service Advisor Relationship Specialty Start Date End Date Shannan Medrano MD [address] [place] [address] PCP - General Internal Medicine 06/01/21 Elfego Morales MD [address] [place] [address] [place] [address] Pulmonary Disease 08/14/20 Jacobo Sherwood MD [address] [place] [address] MARIA GUADALUPE@[email or web address] Pulmonary Disease 07/25/21 Javed Griffin MD [address] [place] [address] DARLENE@[email or web address] Cardiothoracic Surgery 07/25/21 documented as of this encounter Additional Source Comments The information contained in this document represents components of the legal health record. It is not the complete legal health record.[facility]
--- OUTSIDE RECORDS SUMMARY | 2025-05-26 08:06 | XMS_ITS | Encounter Summary ---
Author Organization [facility] Address [address] [place] [address] [place] [address] Phone Care Team Providers Care Abrasive Grader Name Role Phone Elfego Morales MD Unavailable Elfego Morales MD Primary Care Provider Shannan Medrano MD Primary Care Provider Jacobo Sherwood MD Unavailable [phone] Javed Griffin MD Unavailable Encounter Details Date Type Department Care Team (Late st Contact Info) Description 12/07/2020 Procedure Pass [facility] Cardiac Resource Recovery Engineer [address] [facility], Floor 9, [address] [place] [address] Social History Tobacco Use Types [...] on filedocumented in this encounter Care Teams Abrasive Grader Relationship Specialty Start Date End Date Elfego Morales MD [address] [place] [address] [place] [address] PCP - General Pulmonary Disease 12/04/20 05/31/21 Shannan Medrano MD [address] [place] [address] PCP - General Internal Medicine 06/01/21 Elfego Morales MD [address] [place] [address] [place] [address] Pulmonary Disease 08/14/20 Jacobo Sherwood MD [address] [place] [address] MARIA GUADALUPE@[email or web address] Pulmonary Disease 07/25/21 Javed Griffin MD [address] [place] [address] DARLENE@[email or web address] Cardiothoracic Surgery 07/25/21 documented as of this encounter Additional Source Comments The information contained in this document represents components of the legal health record. It is not the complete legal health record.[facility]
--- OUTSIDE RECORDS SUMMARY | 2025-05-26 08:07 | XMS_ITS | Clinical Summary ---
Author Organization [facility] Address [address] [place] [address] Phone Care Team Providers Care Lawn Specialist Name Role Phone Elfego Morales MD Unavailable Shannan Medrano MD Primary Care Provider [phone] Jacobo Sherwood MD Unavailable [phone] Javed Griffin MD Unavailable Allergies Active Allergy [...] topic Medical Devices Not on file Insurance [facility] DIRECT [facility] DIRECT [facility] DIRECT [facility] DIRECT [facility] DIRECT [facility] PLANS DIRECT [facility] PL[facility] DIRECT [facility] DIRECT Advance Directives For more information, please contact: [phone] (9AM - 5PM [facility], Friday-Friday) Documents on File Type Date Recorded Patient Supervisor Cell Operation Expl anation Healthcare Proxy 06/05/2021 2:19 PM * Full Code (Latest Code Status on File) Date Activated Date Inactivated Comments 06/18/2021 2:09 PM Question Answer Comments Code Status Confirmed With: Other (specify below ) Code Status Communicated To: Other (specify belo w) Code Discussion Comments: discussed by p re-operative team; will be confirmed when patient extubated in ICU Care Teams Lawn Specialist Relationship Specialty Start Date End Date Shannan Medrano MD [facility] [place] [address] PCP - General Internal Medicine 06/01/21 Elfego Morales MD [address] [place] [address] [place] [address] Pulmonary Disease 08/14/20 Jacobo Sherwood MD [address] [place] [address] MARIA GUADALUPE@[email or web address] Pulmonary Disease 07/25/21 Javed Griffin MD [address] [place] [address] DARLENE@[email or web address] Cardiothoracic Surgery 07/25/21 Additional Source Comments The information contained in this document represents components of the legal health record. It is not the complete legal health record.[facility]
--- OUTSIDE RECORDS SUMMARY | 2025-05-26 08:07 | XMS_ITS | Encounter Summary ---
Author Organization [facility] Address [address] [place] [address] Phone Care Team Providers Care Supervisor Coremaker Name Role Phone Elfego Morales MD Unavailable Shannan Medrano MD Primary Care Provider [phone] Jacobo Sherwood MD Unavailable Javed Griffin MD Unavailable Encounter Details Date Type Department Care Team (Late st Contact Info) Description 06/21/2021 Procedure Pass [facility] Cardiac US [address] [place] [address] Social History Tobacco Use Types Packs/Day Years [...] 3:00 PM EST Walter Manriquez, RN * [place] Suicide Severity Rating Scale (Screener/Recent Self-Report) Question [...] on filedocumented in this encounter Care Teams Supervisor Coremaker Relationship Specialty Start Date End Date Shannan Medrano MD [address] [place] [address] PCP - General Internal Medicine 06/01/21 Elfego Morales MD [address] [place] [address] [place] [address] Pulmonary Disease 08/14/20 Jacobo Sherwood MD [address] [place] [address] MARIA GUADALUPE@[email or web address] Pulmonary Disease 07/25/21 Javed Griffin MD [address] [place] [address] DARLENE@[email or web address] Cardiothoracic Surgery 07/25/21 documented as of this encounter Additional Source Comments The information contained in this document represents components of the legal health record. It is not the complete legal health record.[facility]
--- OUTSIDE RECORDS SUMMARY | 2025-05-26 08:08 | XMS_ITS | Encounter Summary ---
Author Organization [facility] Address [address] [place] [address] [place] [address] Phone Care Team Providers Care Plywood Factory Worker Name Role Phone Elfego Morales MD Unavailable Shannan Medrano MD Primary Care Provider Jacobo Sherwood MD Unavailable [phone] Jaevd Griffin MD Unavailable Encounter Details Date Type Department Care Team (Late st Contact Info) Description 07/14/[address] [facility] Cardiac Finishing Machine Operator Automatic [address] [facility], Floor 9, [address] [place] [address] Social History Tobacco Use Types [...] on filedocumented in this encounter Care Teams Plywood Factory Worker Relationship Specialty Start Date End Date Shannan Medrano MD [address] [place], [place] [id number] PCP - General Internal Medicine 06/01/21 Elfego Morales MD [address] [place] [address] [place] [address] Pulmonary Disease 08/14/20 Jacobo Sherwood MD [address] [place] [address] MARIA GUADALUPE@[email or web address] Pulmonary Disease 07/25/21 Javed Griffin MD [address] [place] [address] DARLENE@[email or web address] Cardiothoracic Surgery 07/25/21 documented as of this encounter Additional Source Comments The information contained in this document represents components of the legal health record. It is not the complete legal health record.[facility]
--- OUTSIDE RECORDS SUMMARY | 2025-05-26 08:08 | XMS_ITS | Encounter Summary ---
Author Organization [facility] Address [address] [place] [address] [place] [address] Phone Care Team Providers Care Stitcher Utility Name Role Phone Elfego Morales MD Unavailable Shannan Medrano MD Primary Care Provider Jacobo Sherwood MD Unavailable [phone] Javed Griffin MD Unavailable [phone] Encounter Details Date Type Department Care Team (Late st Contact Info) Description 07/14/2021 Procedure Pass [facility] [place] Accounts Receivable Manager [address] [facility], Floor 9, [address] [place] [address] Social History Tobacco Use Types [...] on filedocumented in this encounter Care Teams Stitcher Utility Relationship Specialty Start Date End Date Shannan Medrano MD [address] [place], [place] [phone] PCP - General Internal Medicine 06/01/21 Elfego Morales MD [address] [place] [address] [place] [address] Pulmonary Disease 08/14/20 Jacobo Sherwood MD [address] [place] [address] MARIA GUADALUPE@[email or web address] Pulmonary Disease 07/25/21 Javed Griffin MD [address] [place] [address] DARLENE@[email or web address] Cardiothoracic Surgery 07/25/21 documented as of this encounter Additional Source Comments The information contained in this document represents components of the legal health record. It is not the complete legal health record.[facility]
--- OUTSIDE RECORDS SUMMARY | 2025-05-26 08:08 | XMS_ITS | Encounter Summary ---
Author Organization [facility] Address [address] [place] [address] Phone Care Team Providers Care Plant And Equipment Worker Name Role Phone Elfego Morales MD Unavailable Shannan Medrano MD Primary Care Provider Jacobo Sherwood MD Unavailable Javed Griffin MD Unavailable [phone] Encounter Details Date Type Department Care Team (Late st Contact Info) Description 06/18/2021 Procedure Pass [facility] Card[place] US [address] [place] [address] Social History Tobacco Use Types Packs/Day Years [...] 3:00 PM EST Walter Manriquez, RN * [place] Suicide Severity Rating Scale (Screener/Recent Self-Report) Question [...] on filedocumented in this encounter Care Teams Plant And Equipment Worker Relationship Specialty Start Date End Date Shannan Medrano MD [address] [place] [address] PCP - General Internal Medicine 06/01/21 Elfego Morales MD [address] [place] [address] [place] [address] Pulmonary Disease 08/14/20 Jacobo Sherwood MD [address] [place] [address] MARIA GUADALUPE@[email or web address] Pulmonary Disease 07/25/21 Javed Griffin MD [address] [place] [address] DARLENE@[facility] Cardiothoracic Surgery 07/25/21 documented as of this encounter Additional Source Comments The information contained in this document represents components of the legal health record. It is not the complete legal health record.[facility]
[2025-05-26 08:10] LABS: Prothrombin Time Whole Bld POC 23.1 sec (11.1-13.5); ~PT, ~INR - Anti Coag Clinic 1.9 (0.9-1.1)
--- NOTE | 2025-05-26 08:14 | MHC.OFFVISCO ---
Intake Intake Visit Reasons: Anticoagulation Allergies No Known Allergies (No Known Allergies*) Allergy (Verified 05/26/25 08:05) Medication List - Last Reconciled 05/26/25 by Lissette Becker RN lisinopril 10 mg PO DAILY warfarin 5 mg See Protocol PO DAILY 90 days Nursing Note INR: 1.9 in therapeutic range Medications and supplements reviewed No changes in health, diet, medications, or supplements, Denies any signs and symptoms of bleeding or bruising or clotting. Bleeding, bruising, clotting discussed Nutritional guidance given Dose: 5MG DAILY F/U INR: 1 MONTH Patient verbalizes understanding of instructions given Anti-Coag Initial Assessment Social Hx Patient Tobacco Use Status: Never used Tobacco Smoking packs per day: 0 alcohol intake: current Alcohol intake frequency: holidays/special occasions only Cardiovascular Hx: HTN Lung Disease HX: Other Cancer HX: No Psych. Illness/Depression: No Coding Level of Care Code Est Patient Level 1 Diagnoses Current use of anticoagulant therapy Z79.01 Assessment & Plan Assessment & Plan (1) Current use of anticoagulant therapy: Code(s): Z79.01 - halfway (current) use of anticoagulants Category: Medical
== END 2025-05-26 08:16 | disposition home or self-care (01) ==
LOC: HO.ACS 07:59
PROVIDERS: PCP Internal Medicine; Visit Provider Internal Medicine Medical Oncology
DX: Z79.01 Long term (current) use of anticoagulants (principal)

== ENCOUNTER → 2025-05-26 07:59 | Outpatient (BNVA) | payer OTHER, SELFPAY | PROVIDERS: PCP Internal Medicine; Visit Provider Internal Medicine Medical Oncology | DX: Z79.01 Long term (current) use of anticoagulants (principal) | CPT/HCPCS: 85610; 99211 ==

== ENCOUNTER 2025-06-23 08:12 | Outpatient (AMB) | payer OTHER, SELFPAY ==
[2025-06-23 08:18] LABS: Prothrombin Time Whole Bld POC 23.7 sec (11.1-13.5); ~PT, ~INR - Anti Coag Clinic 2.0 (0.9-1.1)
--- OUTSIDE RECORDS SUMMARY | 2025-06-23 08:22 | XMS_ITS | Encounter Summary ---
Author Organization [facility] Address [address] [place] [address] [place] [address] Phone Care Team Providers Care Logging Truck Driver Name Role Phone Elfego Morales MD Unavailable Shannan Medrano MD Primary Care Provider [phone] Jacobo Sherwood MD Unavailable [phone] Javed Griffin MD Unavailable Encounter Details Date Type Department Care Team (Late st Contact Info) Description 07/14/2021 Procedure Pass [facility] Cardiac Comber Fixer [address] [facility], Floor 9, [address] [place] [address] Social History Tobacco Use Types [...] on filedocumented in this encounter Care Teams Logging Truck Driver Relationship Specialty Start Date End Date Shannan Medrano MD [address] [place], [place] [phone] PCP - General Internal Medicine 06/01/21 Elfego Morales MD [address] [place] [address] [place] [address] Pulmonary Disease 08/14/20 Jacobo Sherwood MD [address] [place] [address] MARIA GUADALUPE@[email or web address] Pulmonary Disease 07/25/21 Javed Griffin MD [address] [place] [address] DARLENE@[email or web address] Cardiothoracic Surgery 07/25/21 documented as of this encounter Additional Source Comments The information contained in this document represents components of the legal health record. It is not the complete legal health record.[facility]
--- OUTSIDE RECORDS SUMMARY | 2025-06-23 08:22 | XMS_ITS | Encounter Summary ---
Author Organization [facility] Address [address] [place] [address] [place] [address] Phone Care Team Providers Care Poultry Dressing Worker Name Role Phone Elfego Morales MD Unavailable Shannan Medrano MD Primary Care Provider Jacobo Sherwood MD Unavailable [phone] Javed Griffin MD Unavailable Encounter Details Date Type Department Care Team (Late st Contact Info) Description 07/14/2021 Procedure Pass [facility] Cardiac Yard Associate [address] [facility], Floor 9, [address] [place] [address] Social History Tobacco Use Types [...] on filedocumented in this encounter Care Teams Poultry Dressing Worker Relationship Specialty Start Date End Date Shannan Medrano MD [address] [place], [place] [phone] PCP - General Internal Medicine 06/01/21 Elfego Morales MD [address] [place] [address] [place] [address] Pulmonary Disease 08/14/20 Jacobo Sherwood MD [address] [place] [address] MARIA GUADALUPE@[email or web address] Pulmonary Disease 07/25/21 Javed Griffin MD [address] [place] [address] DARLENE@[email or web address] Cardiothoracic Surgery 07/25/21 documented as of this encounter Additional Source Comments The information contained in this document represents components of the legal health record. It is not the complete legal health record.[facility]
--- OUTSIDE RECORDS SUMMARY | 2025-06-23 08:22 | XMS_ITS | Encounter Summary ---
Author Organization [facility] Address [address] [place] [address] Phone Care Team Providers Care Brand Strategy Manager Name Role Phone Elfego Morales MD Unavailable [phone] Shannan Medrano MD Primary Care Provider Jacobo Sherwood MD Unavailable [phone] Javed Griffin MD Unavailable Encounter Details Date Type Department Care Team (Late st Contact Info) Description 07/25/2021 Procedure Pass [facility] [address] [place] [address] Social History Tobacco Use Types Packs/Day Years [...] on filedocumented in this encounter Care Teams Brand Strategy Manager Relationship Specialty Start Date End Date Shannan Medrano MD [facility] [place] [address] PCP - General Internal Medicine 11/12/21 Elfego Morales MD [address] [place] [address] [place] [address] Pulmonary Disease 08/14/20 Jacobo Sherwood MD [address] [place] [address] MARIA GUADALUPE@[email or web address] Pulmonary Disease 07/25/21 Javed Griffin MD [address] [place] [address] DARLENE@[email or web address] Cardiothoracic Surgery 07/25/21 documented as of this encounter Additional Source Comments The information contained in this document represents components of the legal health record. It is not the complete legal health record.[facility]
--- OUTSIDE RECORDS SUMMARY | 2025-06-23 08:22 | XMS_ITS | Encounter Summary ---
Author Organization [facility] Address [address] [place] [address] Phone Care Team Providers Care Sheet Metal Layout Mechanic Name Role Phone Elfego Morales MD Unavailable Shannan Medrano MD Primary Care Provider Jacobo Sherwood MD Unavailable Javed Griffin MD Unavailable [phone] Encounter Details Date Type Department Care Team (Late st Contact Info) Description 11/28/2022 Procedure Pass [facility] [address] [place] [address] Social History Tobacco Use Types Packs/Day Years [...] on filedocumented in this encounter Care Teams Sheet Metal Layout Mechanic Relationship Specialty Start Date End Date Shannan Medrano MD [address] [place] [address] PCP - General Internal Medicine 06/01/21 Elfego Morales MD [address] [place] [address] [place] [address] Pulmonary Disease 08/14/20 Jacobo Sherwood MD [address] [place] [address] MARIA GUADALUPE@[email or web address] Pulmonary Disease 07/25/21 Javed Griffin MD [address] [place] [address] DARLENE@[email or web address] Cardiothoracic Surgery 07/25/21 documented as of this encounter Additional Source Comments The information contained in this document represents components of the legal health record. It is not the complete legal health record.[facility]
--- OUTSIDE RECORDS SUMMARY | 2025-06-23 08:22 | XMS_ITS | Clinical Summary ---
Author Organization [facility] Address [address] [place] [address] Phone Care Team Providers Care Activity Aid Name Role Phone Elfego Morales MD Unavailable [phone] Shannan Medrano MD Primary Care Provider [phone] Jacobo Sherwood MD Unavailable [phone] Javed Griffin MD Unavailable [phone] Allergies Active Allergy Reactions Criticality Noted Date [...] topic Medical Devices Not on file Insurance [facility] DIRECT [facility] DIRECT [facility] DIRECT [facility] DIRECT [facility] DIRECT [facility] DIRECT [facility] PL[facility] DIRECT [facility] DIRECT [facility] DIRECT Advance Directives For more information, please contact: [phone] (9AM - 5PM [facility], Friday-Friday) Documents on File Type Date Recorded Patient Cotton Broker Expl anation Healthcare Proxy 06/05/2021 2:19 PM * Full Code (Latest Code Status on File) Date Activated Date Inactivated Comments 06/18/2021 2:09 PM Question Answer Comments Code Status Confirmed With: Other (specify below ) Code Status Communicated To: Other (specify belo w) Code Discussion Comments: discussed by p re-operative team; will be confirmed when patient extubated in ICU Care Teams Activity Aid Relationship Specialty Start Date End Date Shannan Medrano MD [facility] [place] [address] PCP - General Internal Medicine 06/01/21 Elfego Morales MD [address] [place] [address] [place] [address] Pulmonary Disease 08/14/20 Jacobo Sherwood MD [address] [place] [address] MARIA GUADALUPE@[email or web address] Pulmonary Disease 07/25/21 Javed Griffin MD [address] [place] [address] DARLENE@[email or web address] Cardiothoracic Surgery 07/25/21 Additional Source Comments The information contained in this document represents components of the legal health record. It is not the complete legal health record.[facility]
--- OUTSIDE RECORDS SUMMARY | 2025-06-23 08:22 | XMS_ITS | Encounter Summary ---
Author Organization [facility] Address [address] [place] [address] Phone Care Team Providers Care Blade Sharpener Name Role Phone Elfego Morales MD Unavailable Shannan Medrano MD Primary Care Provider Jacobo Sherwood MD Unavailable Javed Griffin MD Unavailable Encounter Details Date Type Department Care Team (Late st Contact Info) Description 06/18/2021 Procedure Pass [facility] PERIOPERATIVE DEPT [address] [place] [phone] Social History Tobacco Use Types Packs/Day Years [...] 3:00 PM EST Walter Manriquez, SHEEBA * [place] Suicide Severity Rating Scale (Screener/Recent Self-Report) Question [...] on filedocumented in this encounter Care Teams Blade Sharpener Relationship Specialty Start Date End Date Shannan Medrano MD [address] [place] [address] PCP - General Internal Medicine 06/01/21 Elfego Morales MD [address] [place] [address] [place] [address] Pulmonary Disease 08/14/20 Jacobo Sherwood MD [address] [place] [phone] MARIA [email or web address] Pulmonary Disease 07/25/21 Javed Griffin MD [address] [place] [phone] DARLENE@[email or web address] Cardiothoracic Surgery 07/25/21 documented as of this encounter Additional Source Comments The information contained in this document represents components of the legal health record. It is not the complete legal health record.[facility]
--- OUTSIDE RECORDS SUMMARY | 2025-06-23 08:22 | XMS_ITS | Encounter Summary ---
Author Organization [facility] Address [address] [place] [address] Phone Care Team Providers Care Cutting And Splicing Supervisor Name Role Phone Elfego Morales MD Unavailable [phone] Shannan Medrano MD Primary Care Provider [phone] Jacobo Sherwood MD Unavailable [phone] Javed Griffin MD Unavailable Encounter Details Date Type Department Care Team (Late st Contact Info) Description 06/18/2021 Procedure Pass [facility] Cardiac US [address] [place] [address] Social History Tobacco Use Types Packs/Day Years [...] 3:00 PM EST Walter Manriquez, RN * [place] Suicide Severity Rating Scale (Screener/Recent Self-Report) Question [...] on filedocumented in this encounter Care Teams Cutting And Splicing Supervisor Relationship Specialty Start Date End Date Shannan Medrano MD [address] [place] [address] PCP - General Internal Medicine 06/01/21 Elfego Morales MD [address] [place] [address] [place] [address] Pulmonary Disease 08/14/20 Jacobo Sherwood MD [address] [place] [phone] MARIA [email or web address] Pulmonary Disease 07/25/21 Javed Griffin MD [address] [place] [address] [email or web address] Cardiothoracic Surgery 07/25/21 documented as of this encounter Additional Source Comments The information contained in this document represents components of the legal health record. It is not the complete legal health record.[facility]
--- OUTSIDE RECORDS SUMMARY | 2025-06-23 08:22 | XMS_ITS | Encounter Summary ---
Author Organization [facility] [place] [facility] Address [address] [place] [address] Phone Care Team Providers Care Ios Software Engineer Name Role Phone Elfego Morales MD Unavailable [phone] Elfego Morales MD Primary Care Provider Shannan Medrano MD Primary Care Provider [phone] Jacobo Sherwood MD Unavailable [phone] Javed Griffin MD Unavailable [phone] Encounter Details Date Type Department Care Team (Late st Contact Info) Description 09/22/2020 Telephone [facility] Nuclear Medicine, [address] [place] [address] Jacobo Sherwood MD [address] [place] [address] MARIA [email or web address] Social History Tobacco Use Types [...] on filedocumented in this encounter Care Teams Ios Software Engineer Relationship Specialty Start Date End Date Elfego Morales MD [address] [place] [address] [place] [address] PCP - General Pulmonary Disease 12/04/20 05/31/21 Shannan Medrano MD [address] [place] [address] PCP - General Internal Medicine 06/01/21 Elfego Morales MD [address] [place] [address] [place] [address] Pulmonary Disease 08/14/20 Jacobo Sherwood MD [address] [place] [address] MARIA [email or web address] Pulmonary Disease 07/25/21 Javed Griffin MD [address] [place] [phone] [email or web address] Cardiothoracic Surgery 07/25/21 documented as of this encounter Additional Source Comments The information contained in this document represents components of the legal health record. It is not the complete legal health record.[facility]
--- OUTSIDE RECORDS SUMMARY | 2025-06-23 08:22 | XMS_ITS | Encounter Summary ---
Author Organization [facility] Address [address] [place] [address] Phone Care Team Providers Care Girl Friday Name Role Phone Elfego Morales MD Unavailable [phone] Elfego Morales MD Primary Care Provider Shannan Medrano MD Primary Care Provider [phone] Jacobo Sherwood MD Unavailable [phone] Javed Griffin MD Unavailable Encounter Details Date Type Department Care Team (Late st Contact Info) Description 03/06/[address] [facility] Cardiac US [address] [place] [address] Social History Tobacco Use Types Packs/Day Years [...] on filedocumented in this encounter Care Teams Girl Friday Relationship Specialty Start Date End Date Elfego Morales MD [address] [place] [address] [place] [address] PCP - General Pulmonary Disease 12/04/20 05/31/21 Shannan Medrano MD [address] [place] [address] PCP - General Internal Medicine 06/01/21 Elfego Morales MD [address] [place] [address] [place] [address] Pulmonary Disease 08/14/20 Jacobo Sherwood MD [address] [place] [address] MARIA [email or web address] Pulmonary Disease 07/25/21 Javed Griffin MD [address] [place] [address] [email or web address] Cardiothoracic Surgery 07/25/21 documented as of this encounter Additional Source Comments The information contained in this document represents components of the legal health record. It is not the complete legal health record.[facility]
--- OUTSIDE RECORDS SUMMARY | 2025-06-23 08:22 | XMS_ITS | Encounter Summary ---
Author Organization [facility] Address [address] [place] [address] [place] [address] Phone Care Team Providers Care Private Eye Name Role Phone Elfego Morales MD Unavailable Elfego Morales MD Primary Care Provider Shannan Medrano MD Primary Care Provider Jacobo Sherwood MD Unavailable [phone] Javed Griffin MD Unavailable [phone] Encounter Details Date Type Department Care Team (Late st Contact Info) Description 12/07/2020 Procedure Pass [facility] Cardiac Security Systems Installer [address] [facility], [address] [place] [address] Social History Tobacco Use Types [...] filedocumented in this encounter Care Teams Private Eye Relationship Specialty Start Date End Date Elfego Morales MD [address] [place] [address] [place] [address] PCP - General Pulmonary Disease 12/04/20 05/31/21 Shannan Medrano MD [address] [place] [address] PCP - General Internal Medicine 06/01/21 Elfego Morales MD [address] [place] [address] [place] [address] Pulmonary Disease 08/14/20 Jacobo Sherwood MD [address] [place] [address] MARIA [email or web address] Pulmonary Disease 07/25/21 Javed Griffin MD [address] [place] [phone] [email or web address] Cardiothoracic Surgery 07/25/21 documented as of this encounter Additional Source Comments The information contained in this document represents components of the legal health record. It is not the complete legal health record.[facility]
--- OUTSIDE RECORDS SUMMARY | 2025-06-23 08:22 | XMS_ITS | Encounter Summary ---
Author Organization [facility] Address [address] [place] [address] Phone Care Team Providers Care Tank Wagon Driver Name Role Phone Elfego Morales MD Unavailable Shannan Medrano MD Primary Care Provider [phone] Jacobo Sherwood MD Unavailable Javed Griffin MD Unavailable Encounter Details Date Type Department Care Team (Late st Contact Info) Description 06/21/2021 Procedure Pass [facility] Cardiac US [address] [place] [address] Social History Tobacco Use Types Packs/Day Years [...] 3:00 PM EST Walter Manriquez, RN * [place] Suicide Severity Rating Scale (Screener/Recent Self-Report) Question [...] on filedocumented in this encounter Care Teams Tank Wagon Driver Relationship Specialty Start Date End Date Shannan Medrano MD [address] [place] [address] PCP - General Internal Medicine 06/01/21 Elfego Morales MD [address] [place] [address] [place] [address] Pulmonary Disease 08/14/20 Jacobo Sherwood MD [address] [place] [phone] MARIA [email or web address] Pulmonary Disease 07/25/21 Javed Griffin MD [address] [place] [phone] [email or web address] Cardiothoracic Surgery 07/25/21 documented as of this encounter Additional Source Comments The information contained in this document represents components of the legal health record. It is not the complete legal health record.[facility]
--- NOTE | 2025-06-23 09:17 | MHC.OFFVISCO ---
Intake Intake Visit Reasons: Anticoagulation Allergies No Known Allergies (No Known Allergies*) Allergy (Verified 06/23/25 08:12) Medication List - Last Reconciled 06/23/25 by Lissette Becker RN lisinopril 10 mg PO DAILY warfarin 5 mg See Protocol PO DAILY 90 days Nursing Note INR: 2.0 in therapeutic range Medications and supplements reviewed No changes in health, diet, medications, or supplements, Denies any signs and symptoms of bleeding or bruising or clotting. Bleeding, bruising, clotting discussed Nutritional guidance given Dose: 5MG DAILY F/U INR: 1 MONTH REQUEST FOR REFILL SENT TO PCP Patient verbalizes understanding of instructions given Anti-Coag Initial Assessment Social Hx Patient Tobacco Use Status: Never used Tobacco Smoking packs per day: 0 alcohol intake: current Alcohol intake frequency: holidays/special occasions only Cardiovascular Hx: HTN Lung Disease HX: Other Cancer HX: No Psych. Illness/Depression: No Coding Level of Care Code Est Patient Level 1 Diagnoses Current use of anticoagulant therapy Z79.01 Results AMB INR Fingerstick AMB INR Fingerstick 2.0 Last Edit by Lissette Becker RN on 06/23/25 08:17 Assessment & Plan Assessment & Plan (1) Current use of anticoagulant therapy: Code(s): Z79.01 - half-way (current) use of anticoagulants Category: Medical Medications: Changed From warfarin 5 mg See Protocol PO DAILY 90 days 90 tabs 3RF To warfarin allow extra tabs for dose adjustments 5 mg See Protocol PO DAILY 100 tabs 3RF 90 days
== END 2025-06-23 08:25 | disposition home or self-care (01) ==
LOC: HO.ACS 08:12
PROVIDERS: PCP Internal Medicine; Visit Provider Internal Medicine Medical Oncology
DX: Z79.01 Long term (current) use of anticoagulants (principal)

== ENCOUNTER → 2025-06-23 08:12 | Outpatient (BNVA) | payer OTHER, SELFPAY | PROVIDERS: PCP Internal Medicine; Visit Provider Internal Medicine Medical Oncology | DX: I26.99 Other pulmonary embolism without acute cor pulmonale (principal); Z51.81 Encounter for therapeutic drug level monitoring; Z79.01 Long term (current) use of anticoagulants | CPT/HCPCS: 85610; 99211 ==